=== PATIENT | female | born 1955 | race Hispanic/Latino ===

== ENCOUNTER 2017-11-11 12:36 | Inpatient (IN) | payer MEDICARE, BC ==
--- NOTE | 2017-11-11 13:24 | ED PDOC ---
Arrival/HPI - General Chief Complaint: Psychiatric Evaluation Time Seen by Provider: 11/11/17 13:03 Historian: Patient, Partner - History of Present Illness Narrative History of Present Illness (Text): 11/11/17 13:17 Pt is a 62 year old female with a 5 year history of anxiety and depression who presents to the ER with her spouse for a psychiatric evaluation and admission. Pt states that she does not want to live anymore but has no plan for suicide. Pt was taken to [facility] ED in [place] this morning in hope of getting her admitted but despite efforts by the patient's psychiatrist, Dr. Dumont, patient was discharged and sent to [facility] where Dr. Dumont spoke with PES for evaluation and admission. Pt denies chest pain, shortness of breath, n/v /d, headache, fever, or any other complaints. Time/Duration: 4-6 hours Symptom Onset: Gradual Symptom Course: Unchanged, Worsening Quality: Unable to Describe Past Medical History - Provider Review Nursing Documentation Reviewed: Yes - Travel History Have you recently traveled outside [place] w/in the past 3 mons?: No - Infectious Disease Hx of Infectious Diseases: None - Tetanus Immunization Tetanus Immunization: Unknown - Cardiac Hx Cardiac Disorders: Yes Hx Hypertension: Yes - Pulmonary Hx Respiratory Disorders: No - Neurological Hx Neurological Disorder: No - HEENT Hx HEENT Disorder: No - Renal Hx Renal Disorder: No - Endocrine/Metabolic Hx Endocrine Disorders: No - Hematological/Oncological Hx Blood Disorders: No - Integumentary Hx Dermatological Disorder: No - Musculoskeletal/Rheumatological Hx Musculoskeletal Disorders: Yes Hx Fractures: Yes - Gastrointestinal Hx Gastrointestinal Disorders: Yes Hx Gall Bladder Disease: Yes - Genitourinary/Gynecological Hx Genitourinary Disorders: No - Psychiatric Hx Psychophysiologic Disorder: Yes Hx Anxiety: Yes Hx Depression: Yes Hx Substance Use: No - Surgical History Hx Cholecystectomy: Yes Hx Orthopedic Surgery: Yes (L WRIST) Family/Social History - Physician Review Nursing Documentation Reviewed: Yes Family/Social History: Unknown Family HX Smoking Status: Former Smoker Hx Alcohol Use: No Hx Substance Use: No Allergies/Home Meds Allergies/Adverse Reactions: Allergies No Known Allergies Allergy (Verified 11/11/17 12:44) Home Medications: Home Meds Medication Instructions Recorded Confirmed Clonazepam [Klonopin] 1 mg PO .FIVE TIMES A DAY 11/11/17 11/11/17 Escitalopram [Lexapro] 20 mg PO DAILY 11/11/17 11/11/17 amLODIPine [Norvasc] 5 mg PO DAILY 11/11/17 11/11/17 Review of Systems - Review of Systems Constitutional: Normal Eyes: Normal ENT: Normal Respiratory: Normal Cardiovascular: Normal Gastrointestinal: Normal Genitourinary Female: Normal Musculoskeletal: Normal Skin: Normal Neurological: Normal Endocrine: Normal Hemo/Lymphatic: Normal Psychiatric: Anxiety, Depression, Suicidal Ideation Physical Exam Vital Signs Reviewed: Yes Vital Signs Temp Pulse Resp BP Pulse Ox 11/11/17 12:46 97.9 F 71 16 128/77 97 Temperature: Afebrile Blood Pressure: Normal Pulse: Regular Respiratory Rate: Normal Appearance: Positive for: Well-Appearing, Non-Toxic, Comfortable Pain Distress: None Mental Status: Positive for: Alert and Oriented X 3 - Systems Exam Head: Present: Atraumatic, Normocephalic Pupils: Present: PERRL Extroacular Muscles: Present: EOMI Conjunctiva: Present: Normal Mouth: Present: Moist Mucous Membranes Neck: Present: Normal Range of Motion Respiratory/Chest: Present: Clear to Auscultation, Good Air Exchange. No: Respiratory Distress, Accessory Muscle Use Cardiovascular: Present: Regular Rate and Rhythm, Normal S1, S2. No: Murmurs Abdomen: Present: Normal Bowel Sounds. No: Tenderness, Distention, Peritoneal Signs Back: Present: Normal Inspection Upper Extremity: Present: Normal Inspection. No: Cyanosis, Edema Lower Extremity: Present: Normal Inspection. No: Edema Neurological: Present: GCS=15, CN II-XII Intact Skin: Present: Warm, Dry, Rashes (psoriasis), Normal Color Psychiatric: Present: Alert, Oriented x 3, Normal Insight, Normal Concentration , Anxious, Depressed Mood (Pt nervous and indicates that she doesn't want to live anymore), Suicidal Ideation Medical Decision Making ED Course and Treatment: 11/11/17 13:24 Pt is a 62 year old female with a 5 year history of anxiety and depression who presents to the ER with her spouse for a psychiatric evaluation and admission. Plan labs and imaging to medically clear UDS and ETOH levels Contact PES and Dr. Dumont Assess Progress Note Spoke with PES; will admit pt as per Dr. Dumont but awaiting admitting dx by Dr Leon Pt admitted under Dr. Robledo for major depressive occurrence and generalized anxiety CXR and EKG ordered along with UDS and ETOH for medical clearance 11/11/17 14:18 - Lab Interpretations Lab Results: 11/11/17 15:15 11/11/17 15:15 Lab Results 11/11/17 15:15: Alcohol, Quantitative < 10 11/11/17 15:15: Sodium 143, Potassium 3.6, Chloride 102, Carbon Dioxide 34 H, Anion Gap 11, BUN 16, Creatinine 0.8, Est GFR ( Amer) > 60, Est GFR (Non- Af Amer) > 60, Random Glucose 97, Calcium 9.6, Total Bilirubin 0.4, AST 23, ALT 27, Alkaline Phosphatase 49, Total Protein 6.9, Albumin 3.8, Globulin 3.0, Albumin/Globulin Ratio 1.3 11/11/17 15:15: WBC 7.8, RBC 4.19, Hgb 13.4, Hct 41.0, MCV 97.9, MCH 32.0, MCHC 32.7, RDW 13.1, Plt Count 224, MPV 10.4 I have reviewed the lab results: Yes - RAD Interpretation Radiology Orders: 11/11/17 14:17 CXR [CHEST TWO VIEWS (PA/LAT)] [RAD] Stat - EKG Interpretation Interpreted by ED Physician: Yes - Medication Orders Current Medication Orders: Acetaminophen (Tylenol 325mg Tab) 650 mg PO Q6H PRN PRN Reason: Pain, moderate (4-7) Al Hydrox/Mg Hydrox/Simethicone (Maalox Plus 30 Ml) 30 ml PO DAILY PRN PRN Reason: Indigestion / Heartburn Clonazepam (Klonopin) 1 mg PO QID RONAK PRN Reason: Protocol Last Admin: 11/11/17 17:44 Dose: 1 mg Behavioural Document 11/11/17 17:44 [facility] (Rec: 11/11/17 17:44 [facility] [id number]) Maintenance Maintenance Dose Yes Magnesium Hydroxide (Milk Of Magnesia) 30 ml PO DAILY PRN PRN Reason: Constipation Paroxetine HCl (Paxil) 10 mg PO HS RONAK Zaleplon (Sonata) 5 mg PO HS PRN PRN Reason: Insomnia Disposition/Present on Arrival - Present on Arrival Any Indicators Present on Arrival: Yes History of DVT/PE: No History of Uncontrolled Diabetes: No Urinary Catheter: No History of Decub. Ulcer: No History Surgical Site Infection Following: None - Disposition Have Diagnosis and Disposition been Completed?: Yes Diagnosis: Major depression, Generalized anxiety disorder Disposition: HOSPITALIZED Disposition Time: 14:00 Patient Plan: Admission Patient Problems: Current Active Problems Problem Status Onset Major depression Acute Generalized anxiety disorder Acute Condition: GOOD
--- NOTE | 2017-11-11 14:53 | RAD ---
HISTORY: wheezing COMPARISON: No prior. TECHNIQUE: Chest PA and lateral FINDINGS: LUNGS: No active pulmonary disease. PLEURA: No significant pleural effusion identified. No pneumothorax apparent. CARDIOVASCULAR: Normal. OSSEOUS STRUCTURES: No significant abnormalities. VISUALIZED UPPER ABDOMEN: Normal. OTHER FINDINGS: None. IMPRESSION: No active disease.
[2017-11-11 15:53] LABS: HEMOGLOBIN 13.4 g/dL (12.0-16.0); MEAN CELL VOLUME 97.9 fl (80.0-105.0); MEAN CORPUSCULAR HGB CONC 32.7 g/dl (31.0-37.0); MEAN PLATELET VOLUME 10.4 fl (7.0-11.0); RBC 4.19 10^6/uL (3.5-6.1); RED CELL DISTRIBUTION WIDTH 13.1 % (11.5-14.5); WHITE BLOOD COUNT 7.8 10^3/ul (4.5-11.0)
[2017-11-11 16:03] LABS: ALB/GLOB RATIO 1.3 (1.1-1.8); ALBUMIN 3.8 g/dL (3.0-4.8); ALT/SGPT 27 U/L (7-56); AST/SGOT 23 U/L (14-36); BLOOD UREA NITROGEN 16 mg/dL (7-21); CALCIUM 9.6 mg/dL (8.4-10.5); GFR AFRICAN-AMERICAN > 60; GFR NON-AFRICAN AMERICAN > 60
[2017-11-11 16:13] LABS: URINE BILIRUBIN NEGATIVE (NEGATIVE); URINE BLOOD MODERATE (NEGATIVE); URINE GLUCOSE (UA) NEGATIVE (NEGATIVE); URINE LEUKOCYTE ESTERASE SMALL Leu/uL (NEGATIVE); URINE PROTEIN NEGATIVE mg/dL (<30 mg/dL); URINE UROBILINOGEN 0.2 E.U./dL (<1 E.U./dL)
[2017-11-11 16:15] LABS: URINE APPEARANCE SL CLOUDY (CLEAR); URINE COLOR YELLOW (YELLOW)
[2017-11-11 16:19] LABS: URINE BACTERIA FEW (NEG); URINE CALCIUM OXALATE CRYSTALS FEW /hpf
[2017-11-11 16:36] LABS: BENZODIAZEPINES, UR POSITIVE (NEGATIVE); OPIATES, UR NEGATIVE (NEGATIVE); PHENCYCLIDINE, UR NEGATIVE (NEGATIVE)
[2017-11-11 17:02] VITALS: O2SAT 99
[2017-11-11] MEDS ORDERED: Alum-Mag Hydrox-Simethicone Susp (30 mL) PO PRN (17:15)
[2017-11-11] MEDS ORDERED: Magnesium Hydroxide Susp 30 ml UD PO PRN (17:16)
[2017-11-11 17:49] LABS: BARBITURATES, UR NEGATIVE (NEGATIVE)
--- NOTE | 2017-11-11 18:03 | PCM.BM ---
<Ben Fan - Last Filed: 11/11/17 17:59> Treatment Plan Problems - Problems identified on initial assessmt Anxiety Date Initiated: 11/11/17 Time Initiated: 18:00 Assessment reference: HP, NA Status: Active Altered Sleep Pattern Date Initiated: 11/11/17 Time Initiated: 18:00 Assessment reference: HP, NA, Other Status: Active Fear Unspecified Date Initiated: 11/11/17 Time Initiated: 18:01 Assessment reference: HP, NA Status: Active Treatment assets and liabiliti Patient Assests: cooperative, self-reliant, good support system, negotiates basic needs, cognitively intact Patient Liabilities: live alone, relationship conflicts, medical problems - Milieu Protocol Maintain good personal hygiene: daily Encourage regular showers, daily Remind patient to perform daily oral care, daily Assist patient to perform ADL's Maintain personal safety: daily Educate patient to report safety concerns to staff, daily Monitor environment for contraband/sharps Medication safety: Monitor for expected outcome, potential side effects: daily, Assess barriers to learning: daily, Assess readiness for medication education: daily Discharge/Continuing Care - Education Needs Education Needs: Patient Medication, Patient Diagnosis/Disease Process, Patient Coping Skills, Patient Placement options, Patient Community resources, Patient Activities of Daily Living, Patient Uses of Medical Equipment, Patient Health Practices/Safety, Patient Personal Hygiene/Grooming, Patient Aftercare Safety Plan - Discharge Discharge Criteria: Free of agitation, Normal sleep pattern <Leon,Aric - Last Filed: 11/12/17 11:23> - Diagnosis (1) Generalized anxiety disorder Status: Acute Interventions: D/C Lexapro. Start Paxil 10 mg po HS for depression and anxiety, titrate as tolerated for symptoms. I reviewed indications, dosing, therapeutic latency and possible side effects with patient this morning and she consents for treatment klonopin 1 mg QID for anxiety, taper slowly as tolerated. This medication may be causing confusion and memory loss in this patient at the frequency prescribed as an outpatient 11/12/17 11:24 (2) Major depression Status: Acute Interventions: D/C Lexapro. Start Paxil 10 mg po HS for depression and anxiety, titrate as tolerated for symptoms. I reviewed indications, dosing, therapeutic latency and possible side effects with patient this morning and she consents for treatment klonopin 1 mg QID for anxiety, taper slowly as tolerated. This medication may be causing confusion and memory loss as well as worsening depression in this patient at the frequency prescribed as an outpatient 11/12/17 11:24 <Mary Mccollum - Last Filed: 11/14/17 15:48> Family Contact Family involvement: Family/SO is involved Family contact: Patient agrees to contact Family contact name: Robby Ceballos() Family contacted how many times per week?: 2 - Outside Agency Dr. Dias Care involvment: Following patient during stay, Information-sharing Agency contact name: Dr. Dias
[2017-11-12 08:16] LABS: HDL CHOLESTEROL 51 mg/dL (29-60)
[2017-11-12 08:27] LABS: LDL CHOLESTEROL 181 mg/dL (0-129)
--- NOTE | 2017-11-12 10:32 | PCM.PSYCH ---
Initial Psychiatric Evaluation - Initial Psychiatric Evaluation Type of Admission: Voluntary Legal Status: Capacity Chief Complaint (in patient's own words): anxiety History of Present Illness and Precipitating Events: Patient is a 62 year old female with a history of depression and anxiety (likely MANDY and Panic Disorder), no history of prior psychiatric admissions or SA, in psychiatric treatment with Dr. Dumont and reportedly compliant with lexapro 20 mg daily and klonopin 1 mg po five times daily prn who presented to our ER with her spouse yesterday 11/11/17 for a psychiatric evaluation and admission. According to ER report, patient was initially taken to [facility] ED in [place] yesterday morning for admission however patient was discharged despite her psychiatrist's recommendation for hospitalization. According to ER report, patient stated that she didn't want to live anymore though denied having any suicidal thoughts. I met with patient at bedside today. She is alert and oriented to month and location. She initially informed me that it was 2018. Patient indicates she doesn't know why she was admitted to a psychiatric unit. She admits to feelings of depression and hopelessness "sometimes in my life" though denies any current symptoms. Appears a little guarded. Indicates that she worries a lot and repeatedly brings up how nervous she is regarding her clothing on the unit. It is a little difficult to redirect her from this preoccupation in order to discuss her general functioning and symptoms. Patient admits to excessive and persistent worry about "things in my life" and finds it difficult to control her worry. Patient also admits to daily panic episodes. Her anxiety symptoms interfere with her sleep and functioning. Patient denies any recent stressors even with repeated questioning. Specifically denies financial, housing or family issues. Reports having a good relationship with her . Patient reports compliance with her psychiatric medications in so far as she takes the medications her tells her to take every day. Patient is preoccupied and distracted with her thoughts so her engagement with me is superficial. Sometimes she talks to herself for the sake of talking, she doesn't actually appear to be responding to internal stimuli. Patient heard mumbling repeatedly "I don't know what to do with myself all day long, what am I going to do with myself". Patient denies perceptual disturbance when directly questioned by this provider. She seems uneasy because she's in a new environment but denies any physical discomfort or pain. PSYCHIATRIC HISTORY Denies prior admissions Denies history of SA Patient reports being in treatment with Dr. Dumont "for many many years". Her medication regimen includes Lexapro 20 mg po daily and klonopin 1 mg po five times daily. She denies any other medication trials. Patient adds that Dr. Dumont also prescribes her Norvasc. She denies any other medication trials. SOCIAL HISTORY Patient was born and raised in [place]. She has been 30+ years and resides with her . She has no children. She graduated high school. 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 Patient reports that she smoked MJA as a teenager but denies any drug use for many years since then. Denies alcohol issues. Patient denies any current tobacco use "I quit a long time ago". Current Medications: Active Medications Generic Name Dose Route Start Last Admin Trade Name Freq PRN Reason Stop Dose Admin Acetaminophen 650 mg 11/11/17 17:14 Tylenol 325mg Tab PO Q6H PRN Pain, moderate (4-7) Al Hydrox/Mg Hydrox/Simethicone 30 ml 11/11/17 17:15 Maalox Plus 30 Ml PO DAILY PRN Indigestion / Heartburn Clonazepam 1 mg 11/11/17 18:00 11/11/17 21:03 Klonopin PO 1 mg QID RONAK Administration Protocol Magnesium Hydroxide 30 ml 11/11/17 17:16 Milk Of Magnesia PO DAILY PRN Constipation Paroxetine HCl 10 mg 11/11/17 22:00 11/11/17 21:03 Paxil PO 10 mg HS RONAK Administration Zaleplon 5 mg 11/11/17 17:13 11/11/17 21:04 Sonata PO 5 mg HS PRN Administration Insomnia Past Psychiatric History - Past Psychiatric History Pertinent Medical Hx (Current Medical&Sleep Prob, Allergies): Allergies Allergy/AdvReac Type Severity Reaction Status Date / Time No Known Allergies Allergy Verified 11/11/17 12:44 Clonazepam [Klonopin] 1 mg PO .FIVE TIMES A DAY 11/11/17 Escitalopram [Lexapro] 20 mg PO DAILY 11/11/17 amLODIPine [Norvasc] 5 mg PO DAILY 11/11/17 Mental Status Examination - Personal Presentation Personal Presentation: Looks stated age - Affect Affect: Other (anxioiuus ) - Reliability in Providing Information Reliability in Providing Information: Fair - Speech Speech: Tangential - Mood Mood: Anxious - Formal Thought Process Formal Thought Process: Loosening of associations - Cognitive Functions Orientation: Person, Place Sensorium: Alert Attention/Concentration: Easily distracted Estimate of Intelligence: Average Judgement: Imparied, as evidence by: Lack of insight into illness DSM 5 DX - DSM 5 DSM 5 Diagnosis: Major Depression by history Generalized Anxiety Disorder Panic Disorder r/o hypnotic dependency/effects of intoxication - Recommended/Plan of Treatment Treatment Recommendations and Plan of Treatment: * group, milieu and supportive tx * D/C Lexapro. Start Paxil 10 mg po HS for depression and anxiety, titrate as tolerated for symptoms. I reviewed indications, dosing, therapeutic latency and possible side effects with patient this morning and she consents for treatment * klonopin 1 mg QID for anxiety, taper slowly as tolerated. This medication may be causing confusion and memory loss in this patient at the frequency prescribed as an outpatient * Awaiting medical consultation, patient has history of HTN * Vitals reviewed and noted below: 11/12/17 11/12/17 06:51 09:24 Temperature 97.6 F Pulse Rate 76 Respiratory 18 Rate Blood Pressure 144/78 107/71 ER LABS AND STUDIES 11/11/17 15:15: Alcohol, Quantitative < 10 11/11/17 15:15: Sodium 143, Potassium 3.6, Chloride 102, Carbon Dioxide 34 H, Anion Gap 11, BUN 16, Creatinine 0.8, Est GFR ( Amer) > 60, Est GFR (Non- Af Amer) > 60, Random Glucose 97, Calcium 9.6, Total Bilirubin 0.4, AST 23, ALT 27, Alkaline Phosphatase 49, Total Protein 6.9, Albumin 3.8, Globulin 3.0, Albumin/Globulin Ratio 1.3 11/11/17 15:15: WBC 7.8, RBC 4.19, Hgb 13.4, Hct 41.0, MCV 97.9, MCH 32.0, MCHC 32.7, RDW 13.1, Plt Count 224, MPV 10.4 FLOOR LABS 11/12/17 07:30 Triglycerides 227 H Cholesterol 305 H LDL Cholesterol Direct 181 H HDL Cholesterol 51 - Smoking Cessation Smoking Cessation Initiated: No
--- NOTE | 2017-11-12 13:56 | PN ---
DATE: SUBJECTIVE: I am covering for Dr. Khan. I am seeing this patient, Zoraida Ceballos. The patient is in the Behavioral Care Unit at [facility] in [place], room 519, bed 2. The patient was admitted by Dr. Robledo, Behavioral Care physician. The patient has long history of dementia apparently and also schizophrenia. The patient has history of altered mental state and passive behavior interrupted by aggressive behavior. PAST MEDICAL HISTORY: The patient has history of hypertension, she says and the patient has history of taking medications for dementia. The patient is also on Paxil. The patient is on Klonopin. The patient's past history is that the patient was on Klonopin, amlodipine 5 mg and Lexapro. PAST SURGICAL HISTORY: The patient has no surgical history. FAMILY HISTORY: Significant for the patient's father is still alive, the mother has . The patient has sisters and they also are in their 50s. 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 According to the patient, she cannot give a history, but the sister, she is Syrian speaking, and she had given information to the psychiatrist that the patient does not work and keeps very much to herself. PHYSICAL EXAMINATION: VITAL SIGNS: The pulse is 76, blood pressure 144/78, respirations are 18, O2 saturation 99% on room air, temperature 97.6. GENERAL: The patient is ambulating. The patient appears to be healthy. HEENT: The patient's head is normocephalic. NECK: Thyroid is not enlarged. The JVP is flat. LUNGS: Trachea is central. Breath sounds are vesicular. No adventitious sounds. HEART: Normal sinus rhythm. S1 and S2 present. ABDOMEN: Soft. Liver and spleen not palpable. PORTRAIT ARTIST: No focal deficits. The patient is in the Behavioral Care Unit. At this time, she has been closely monitored, but she does not apparently have any history of suicidal tendency or aggressive behavior to the extent of hurting people. LABORATORY DATA: Lab work shows a white count of 7000, hemoglobin of 13.4. The patient's chemistry: The patient's CO2 is 34, all other chemical parameters seem to be good. Cholesterol is 305. Th patient might be placed on statin at this time. We will continue medical management. We will place the patient on Norvasc 2.5 mg daily and Lipitor 20 mg p.o. daily and continue all other medications as prescribed by the Behavioral Care physician. Roger Fox MD SRIRAM
--- NOTE | 2017-11-13 11:55 | PCM.PYCHPN ---
Psychiatric Progress Note - Psychiatric Progress Note Patient seen today, length of contact: 25 min Patient Chief Complaint: anxiety Problems Identified/Issues Discussed: History of Present Illness and Precipitating Events: Patient is a 62 year old female with a history of depression and anxiety (likely MANDY and Panic Disorder), no history of prior psychiatric admissions or SA, in psychiatric treatment with Dr. Dumont and reportedly compliant with lexapro 20 mg daily and klonopin 1 mg po five times daily prn who presented to our ER with her spouse yesterday 11/11/17 for a psychiatric evaluation and admission. According to ER report, patient was initially taken to [facility] ED in [place] yesterday morning for admission however patient was discharged despite her psychiatrist's recommendation for hospitalization. According to ER report, patient stated that she didn't want to live anymore though denied having any suicidal thoughts. I met with patient at bedside today. She is alert and oriented to month and location. She initially informed me that it was 2018. Patient indicates she doesn't know why she was admitted to a psychiatric unit. She admits to feelings of depression and hopelessness "sometimes in my life" though denies any current symptoms. Appears a little guarded. Indicates that she worries a lot and repeatedly brings up how nervous she is regarding her clothing on the unit. It is a little difficult to redirect her from this preoccupation in order to discuss her general functioning and symptoms. Patient admits to excessive and persistent worry about "things in my life" and finds it difficult to control her worry. Patient also admits to daily panic episodes. Her anxiety symptoms interfere with her sleep and functioning. Patient denies any recent stressors even with repeated questioning. Specifically denies financial, housing or family issues. Reports having a good relationship with her . Patient reports compliance with her psychiatric medications in so far as she takes the medications her tells her to take every day. Patient is preoccupied and distracted with her thoughts so her engagement with me is superficial. Sometimes she talks to herself for the sake of talking, she doesn't actually appear to be responding to internal stimuli. Patient heard mumbling repeatedly "I don't know what to do with myself all day long, what am I going to do with myself". Patient denies perceptual disturbance when directly questioned by this provider. She seems uneasy because she's in a new environment but denies any physical discomfort or pain. PSYCHIATRIC HISTORY Denies prior admissions Denies history of SA Patient reports being in treatment with Dr. Dumont "for many many years". Her medication regimen includes Lexapro 20 mg po daily and klonopin 1 mg po five times daily. She denies any other medication trials. Patient adds that Dr. Dumont also prescribes her Norvasc. She denies any other medication trials. SOCIAL HISTORY Patient was born and raised in [place]. She has been 30+ years and resides with her . She has no children. She graduated high school. 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 Patient reports that she smoked MJA as a teenager but denies any drug use for many years since then. Denies alcohol issues. Patient denies any current tobacco use "I quit a long time ago". Progress Note Day 3 I reviewed recent notes and interviewed patient in her room. Patient is only superficially engaged in my questioning and discussion of her symptoms because she is too scattered and distracted by her worries. As noted in yesterday's note, sometimes she talks to herself for the sake of talking, she doesn't actually appear to be responding to internal stimuli. Patient repeatedly makes meaningless statements and worries even when reassured by this provider and staff. For example she was repeatedly fixated on whether she had enough time to take a shower before breakfast today. Today she also kept telling me that her wants her "to wear the sweat shirt". She is restless, odd and disorganized. Though she is oriented to month, year and location she is poorly related to circumstances. I observed patient disrobing and wandering her room and flood naked, brooding and talking to herself. Presently patient denies any new side effects, discomfort and pain. Diagnostic Results: Major Depression by history Generalized Anxiety Disorder Panic Disorder r/o hypnotic dependency/effects of intoxication Mental Status Examination - Cognitive Function Orientation: Person, Place - Mood Mood: Anxious - Affect Affect: Other (anxioiuus ) - Formal Thought Process Formal Thought Process: Loosening of associations - Homicidal Ideation Homicidal Ideation: No Goal/Treatment Plan - Goal/Treatment Plan Progress Toward Problem(s) and Goals/Treatment Plan: * group, milieu and supportive tx * Continue Paxil 10 mg po HS for depression and anxiety, titrate as tolerated for symptoms. I reviewed indications, dosing, therapeutic latency and possible side effects with patient this morning and she consents for treatment * decrease klonopin to 1 mg TID, taper slowly as medication may be causing confusion and memory loss in this patient at the frequency prescribed as an outpatient (5 times daily) * d/c Sonata and initiate Seroquel 12.5 mg HS for disorganization and off-label for poor sleep * Appreciate f/u by Dr. Fox on 11/12/17~started Norvasc 2.5 mg and Lipitor 20 mg daily. * Vitals reviewed and noted below: 11/13/17 07:00 Temperature 97.3 F L Pulse Rate 84 Respiratory 20 Rate Blood Pressure 131/77 ER LABS AND STUDIES 11/11/17 15:15: Alcohol, Quantitative < 10 11/11/17 15:15: Sodium 143, Potassium 3.6, Chloride 102, Carbon Dioxide 34 H, Anion Gap 11, BUN 16, Creatinine 0.8, Est GFR ( Amer) > 60, Est GFR (Non- Af Amer) > 60, Random Glucose 97, Calcium 9.6, Total Bilirubin 0.4, AST 23, ALT 27, Alkaline Phosphatase 49, Total Protein 6.9, Albumin 3.8, Globulin 3.0, Albumin/Globulin Ratio 1.3 11/11/17 15:15: WBC 7.8, RBC 4.19, Hgb 13.4, Hct 41.0, MCV 97.9, MCH 32.0, MCHC 32.7, RDW 13.1, Plt Count 224, MPV 10.4 FLOOR LABS 11/12/17 07:30 Triglycerides 227 H Cholesterol 305 H LDL Cholesterol Direct 181 H HDL Cholesterol 51
--- NOTE | 2017-11-13 11:57 | PN ---
DATE: SUBJECTIVE: The patient is in the Behavioral Care Unit in room 519, bed 2. The patient was admitted with catatonic state, abnormal behavior. The patient would not make conversation. She has past history of schizophrenia, bipolar disorder. The patient is seen this morning. The patient is ambulating and apparently conversing with the nurses. PHYSICAL EXAMINATION VITAL SIGNS: The pulse is 84, blood pressure 135/75, respirations are 20. HEENT: The patient's head is normocephalic. LUNGS: Clear. HEART: Normal sinus rhythm. ABDOMEN: Soft. Liver and spleen not palpable. CLIP BOLTER AND WRAPPER: No focal neurological deficits are noted. The patient has definite behavioral disorder. MEDICATIONS: Consist of Lipitor 10 mg daily for hyperlipidemia, amlodipine 2.5 mg daily for blood pressure control and the patient gets Sonata for sleep, Paxil 10 mg for bipolar disorder and the patient is on Klonopin 1 mg q.i.d. The patient's diet is heart healthy. Continue current management. Follow up with Behavioral Care Unit. Roger Fox MD SRIRAM
[2017-11-13] MEDS: Omega-3-Acid Ethyl Esters 1 GM Cap PO SCH (21:41)
[2017-11-13 23:02] LABS: URINE BILIRUBIN NEGATIVE (NEGATIVE); URINE BLOOD SMALL (NEGATIVE); URINE GLUCOSE (UA) NEGATIVE (NEGATIVE); URINE LEUKOCYTE ESTERASE TRACE Leu/uL (NEGATIVE); URINE PROTEIN NEGATIVE mg/dL (<30 mg/dL); URINE UROBILINOGEN 0.2 E.U./dL (<1 E.U./dL)
[2017-11-13 23:05] LABS: URINE APPEARANCE CLEAR (CLEAR); URINE COLOR LIGHT YELLOW (YELLOW)
[2017-11-13 23:17] LABS: URINE BACTERIA MOD (NEG); URINE EPITHELIAL CELLS 0 - 2 /hpf (0-5)
[2017-11-14 08:45] LABS: FREE T4 1.02 ng/dL (0.78-2.19)
[2017-11-14] MEDS: Omega-3-Acid Ethyl Esters 1 GM Cap PO SCH ×2 (09:06→17:26)
--- NOTE | 2017-11-14 12:08 | PCM.PYCHPN ---
Psychiatric Progress Note - Psychiatric Progress Note Patient seen today, length of contact: 25 min Patient Chief Complaint: anxiety Problems Identified/Issues Discussed: History of Present Illness and Precipitating Events: Patient is a 62 year old female with a history of depression and anxiety (likely MANDY and Panic Disorder), no history of prior psychiatric admissions or SA, in psychiatric treatment with Dr. Dumont and reportedly compliant with lexapro 20 mg daily and klonopin 1 mg po five times daily prn who presented to our ER with her spouse yesterday 11/11/17 for a psychiatric evaluation and admission. According to ER report, patient was initially taken to [facility] ED in [place] yesterday morning for admission however patient was discharged despite her psychiatrist's recommendation for hospitalization. According to ER report, patient stated that she didn't want to live anymore though denied having any suicidal thoughts. I met with patient at bedside today. She is alert and oriented to month and location. She initially informed me that it was 2018. Patient indicates she doesn't know why she was admitted to a psychiatric unit. She admits to feelings of depression and hopelessness "sometimes in my life" though denies any current symptoms. Appears a little guarded. Indicates that she worries a lot and repeatedly brings up how nervous she is regarding her clothing on the unit. It is a little difficult to redirect her from this preoccupation in order to discuss her general functioning and symptoms. Patient admits to excessive and persistent worry about "things in my life" and finds it difficult to control her worry. Patient also admits to daily panic episodes. Her anxiety symptoms interfere with her sleep and functioning. Patient denies any recent stressors even with repeated questioning. Specifically denies financial, housing or family issues. Reports having a good relationship with her . Patient reports compliance with her psychiatric medications in so far as she takes the medications her tells her to take every day. Patient is preoccupied and distracted with her thoughts so her engagement with me is superficial. Sometimes she talks to herself for the sake of talking, she doesn't actually appear to be responding to internal stimuli. Patient heard mumbling repeatedly "I don't know what to do with myself all day long, what am I going to do with myself". Patient denies perceptual disturbance when directly questioned by this provider. She seems uneasy because she's in a new environment but denies any physical discomfort or pain. PSYCHIATRIC HISTORY Denies prior admissions Denies history of SA Patient reports being in treatment with Dr. Dumont "for many many years". Her medication regimen includes Lexapro 20 mg po daily and klonopin 1 mg po five times daily. She denies any other medication trials. Patient adds that Dr. Dumont also prescribes her Norvasc. She denies any other medication trials. SOCIAL HISTORY Patient was born and raised in [place]. She has been 30+ years and resides with her . She has no children. She graduated high school. 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 Patient reports that she smoked MJA as a teenager but denies any drug use for many years since then. Denies alcohol issues. Patient denies any current tobacco use "I quit a long time ago". Progress Note Day 4 I reviewed recent notes and interviewed patient in her room. Patient's focus is a little improved today though her engagement and understanding of circumstances is still superficial. This is mainly because her ruminating anxiety distracts and scatters her thought process. As noted in my prior notes , sometimes she talks to herself for the sake of talking. She is doing this a little less this morning. Can maintain focus for a longer period of time before she starts rambling and brooding about minor issues. She is still preoccupied with her clothing. Her concerns are addressed by staff but she continues to worry and repeat herself. She is still restless, odd and disorganized. She doesn't actually appear to be responding to internal stimuli and she denies perceptual disturbance in this sense. Her grooming is better today and she seems to be more aware of keeping her behavior appropriate (she was disrobing and walking around naked yesterday morning). Presently patient denies any new side effects, discomfort and pain. Patient indicates she slept better and there were not major behavioral issues last night. Diagnostic Results: Major Depression by history Generalized Anxiety Disorder Panic Disorder r/o hypnotic dependency/effects of intoxication Mental Status Examination - Cognitive Function Orientation: Person, Place Attention: Poor (some improvement today, less frenetic than her behavior on Tuesday) Concentration: Poor Association: Loose Fund of Knowledge: Poor - Mood Mood: Anxious - Affect Affect: Other (anxioiuus ) - Formal Thought Process Formal Thought Process: Loosening of associations - Suicidal Ideation Suicidal Ideation: No - Homicidal Ideation Homicidal Ideation: No Goal/Treatment Plan - Goal/Treatment Plan Progress Toward Problem(s) and Goals/Treatment Plan: * group, milieu and supportive tx * Increase Paxil to 15 mg po HS for depression and anxiety, titrate as tolerated for symptoms. I reviewed indications, dosing, therapeutic latency and possible side effects with patient on 11/12/17 and she consented for treatment * Continue klonopin to 1 mg TID, taper slowly as medication may be causing confusion and memory loss in this patient at the frequency prescribed as an outpatient (5 times daily) * Increase Seroquel to 25 mg HS for disorganization and off-label for poor sleep * Appreciate f/u by Dr. Fox on 11/12/17 and 11/13/17~started Norvasc 2.5 mg and Lipitor 20 mg daily. * Vitals reviewed and noted below: 11/14/17 07:47 Temperature 98.1 F Pulse Rate 87 Respiratory 20 Rate Blood Pressure 119/83 ER LABS AND STUDIES 11/11/17 15:15: Alcohol, Quantitative < 10 11/11/17 15:15: Sodium 143, Potassium 3.6, Chloride 102, Carbon Dioxide 34 H, Anion Gap 11, BUN 16, Creatinine 0.8, Est GFR ( Amer) > 60, Est GFR (Non- Af Amer) > 60, Random Glucose 97, Calcium 9.6, Total Bilirubin 0.4, AST 23, ALT 27, Alkaline Phosphatase 49, Total Protein 6.9, Albumin 3.8, Globulin 3.0, Albumin/Globulin Ratio 1.3 11/11/17 15:15: WBC 7.8, RBC 4.19, Hgb 13.4, Hct 41.0, MCV 97.9, MCH 32.0, MCHC 32.7, RDW 13.1, Plt Count 224, MPV 10.4 FLOOR LABS 11/14/17 07:45 Free T4 1.02 Thyroxine (T4) 8.0 TSH 3rd Generation 0.77 11/12/17 07:30 Triglycerides 227 H Cholesterol 305 H LDL Cholesterol Direct 181 H HDL Cholesterol 51
--- NOTE | 2017-11-14 16:40 | CON ---
DATE: 11/14/2017 NEUROLOGY CONSULT CHIEF COMPLAINT: Evaluate for cognitive impairment. HISTORY OF PRESENT ILLNESS: This is a 62-year-old woman, history of anxiety, depression, hypertension, dyslipidemia, who came in for worsening depression and is currently being admitted to the Psychiatric Unit. She is very anxious. She is on high doses of Klonopin and is on Lexapro and Paxil. She has poor sleep and very disorganized, though she could spell the word world backwards and knows the month, date and year. Recall after 5 minutes is 2/3. She does have a blocking effect from being already anxious, though moves around and walks around without any difficulty, but a very anxious person. She I do not know what to do myself all day and all day long and is overwhelmed. PAST MEDICAL HISTORY: Dyslipidemia, hypertension, anxiety, depression. REVIEW OF SYSTEMS: Fourteen-point review of systems in negative except as per the HPI. FAMILY HISTORY: Noncontributory. SOCIAL HISTORY: No illicit drug use, smoking or EtOH abuse. MEDICATIONS: Reviewed by nurse reconciliation sheet. ALLERGIES: NO KNOWN DRUG ALLERGIES. PHYSICAL EXAMINATION: VITAL SIGNS: Temperature 98.1, pulse rate of 87, blood pressure 119/82, respiratory rate 20. GENERAL: The patient is sitting up in bed, very anxious. HEENT: She is atraumatic, normocephalic. PERRLA. Extraocular muscles intact. NECK: Supple. No JVD, no adenopathy noted. LUNGS: Clear to auscultation. No adventitious sounds. HEART: S1, S2. Normal rate and rhythm. No murmurs, rubs or gallops. ABDOMEN: Soft, nontender and nondistended. Bowel sounds are present. EXTREMITIES: No clubbing. No cyanosis. Peripheral pulses 2+ felt bilaterally. NEUROLOGIC: The patient has very anxious affect, loose associations. Poor attention span. Slow thought process. Alert and oriented to person, place and year. Recall after 5 minutes is 2/3. She can spell the word world backwards. Motor exam: Slight increased tone throughout. Moves all extremities equally. Sensory: Light touch, pinprick, proprioception and vibration are intact. DTRs are 2+ throughout. Coordination: [id number] intact. No dysmetria noted. Gait is normal. Romberg negative. LABORATORY DATA: Labs unremarkable and she has a thyroid function. ASSESSMENT: This is a 62-year-old woman, history of hypertension, dyslipidemia, anxiety, depression, came in for worsening depression and anxiety. I was called to assess the cognitive impairment. At this time point, it is very difficult to assess her cognitive impairment due to severe anxiety, likely causing the blocking effect of her transient aspect of her memory. PLAN: At this time, recommend, 1. Attention exercises and constitutional exercises. 2. Avoid overuse of Klonopin. Recommended to taper down slowly. 3. Continue with her underlying Paxil. 4. Continue further Psychiatric management. No further neurological evaluation needed at this time. We will evaluate as an outpatient. Fazal Julian MD
[2017-11-14] MEDS: Ergocalciferol 50,000 Intl Units Cap PO SCH (22:45)
--- NOTE | 2017-11-15 04:08 | PN ---
DATE: 11/14/2017 SUBJECTIVE: The patient is seen in room 519, and also ambulating on the floor. Overnight nurse's notes were reviewed. The patient states that she has been feeling very anxious and depressed, and has not been feeling herself. The patient was admitted through the emergency room on 11/11/2017, with presentation of anxiety and depression. The patient still states that she is feeling anxious and depressed. The patient denies any suicidal or homicidal ideation. PHYSICAL EXAMINATION: VITAL SIGNS: T-max 98.1; pulse 74, 87, 68; blood pressure, last 24 hours, 131/77, 126/80, 119/83, 119/83, 128/61; respiration 20, O2 sat 99% to 97%. HEENT: Head normocephalic, atraumatic. HEENT examination shows pink conjunctivae. Anicteric sclerae. No oropharyngeal lesion. No neck rigidity. CHEST: Kyphosis. LUNG: No rales, crackles or wheezing. CARDIOVASCULAR: S1 and S2, regular rhythm. No audible murmur, gallop or rub. ABDOMEN: Soft. Positive bowel sounds. GENITALIA: Female. RECTAL: Deferred. EXTREMITIES: Healed surgical scar of the left wrist surgery and left hand surgery. Lower extremity shows no pitting edema, no calf tenderness, no Homans' sign. NEUROLOGICAL: The patient is alert, awake, oriented x3. Is able to move upper and lower extremity without assistance. Gait examination is independent. Motor strength is 5/5. VASCULAR: Palpable pulses. DIAGNOSTICS: The patient's lipid panel shows triglyceride of 227, cholesterol 305, LDL 181. Vitamin D 25-hydroxy 21.1. Thyroid panel is negative. Repeat urine shows small blood, trace leukocyte esterase, moderate bacteria. Urine drug screen was negative. RPR is negative. Chest x-ray from 11/11/2017 was reviewed, which was negative for any active disease. IMPRESSION: 1. Acute exacerbation of anxiety and depression. 2. History of hypertension and hyperlipidemia. 3. History of left wrist and hand surgery. 4. History of left hand and wrist fracture. 5. History of anxiety and depression with acute exacerbation. 6. History of generalized anxiety disorder and panic disorder. 7. History of hypertension, presently normotension. 8. Hypovitaminosis D. 9. Hypercholesteremia, hypertriglyceridemia, with elevated LDL. 10. Microscopic hematuria, pyuria, bacteriuria. PLAN: At this time, the patient was seen by Neurology. Their recommendations were noted. The patient is being followed up by Psychiatry for optimization of the patient's inpatient psychiatry treatment. The patient is currently on following medications. The patient is on: 1. Drisdol 50,000 units weekly. 2. Klonopin 1 mg 3 times a day. 3. Lipitor 80 mg daily. 4. Lovaza 2 g twice a day. 5. Milk of magnesia p.r.n. 6. Norvasc 2.5 mg daily. 7. Paxil 15 mg at bedtime. 8. Seroquel 25 mg at bedtime 9. Tylenol 650 q. 6 p.r.n. The patient will be placed on low-cholesterol, low-fat, low-triglyceride diet because of abnormal lipid panel. The patient will be placed on heart healthy diet. The patient will be ordered dietitian consultation. 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 Patient at present needs high intensity cholesterol management. The patient will be continued on the above therapeutic intervention. The patient's further management will be dependent upon the patient's clinical condition, hemodynamic status, and as per the patient's response to therapeutic intervention, as per the patient's diagnostic test results, and recommendation by all the physician involved in the care of the patient. Dictated and electronically signed, not read. Massimo Khan MD
[2017-11-15] MEDS: Omega-3-Acid Ethyl Esters 1 GM Cap PO SCH ×2 (09:00→17:44)
--- NOTE | 2017-11-15 13:58 | PCM.PYCHPN ---
Psychiatric Progress Note - Psychiatric Progress Note Patient seen today, length of contact: 30min Patient Chief Complaint: "I am not doing so well, I feel paranoid, I am depressed and I have anxiety.... " Problems Identified/Issues Discussed: Suicide/ homicide prevention, past psychiatric h/o, current psychiatric symptoms , medical problems, risk/benefits and alternatives of medications, medications compliance, coping strategies, substance abuse h/o, relapse prevention, importance of follow up with psychiatrist and therapist, discharge plan. Medical Problems: low vit D hypercholesterolemia HTN Diagnostic Results: 11/11/17 15:15 11/11/17 15:15 Lab Results 11/14/17 07:45: Free T4 1.02, Thyroxine (T4) 8.0, TSH 3rd Generation 0.77 11/14/17 07:45: 25-OH Vitamin D Total 21.1 L 11/13/17 22:00: Urine Color Light yellow, Urine Appearance Clear, Urine pH 6.0, Ur Specific [place] 1.015, Urine Protein Negative, Urine Glucose (UA) Negative, Urine Ketones Negative, Urine Blood Small H, Urine Nitrate Negative, Urine Bilirubin Negative, Urine Urobilinogen 0.2, Ur Leukocyte Esterase Trace H, Urine RBC 2 - 5, Urine WBC 2 - 5, Ur Epithelial Cells 0 - 2, Urine Bacteria Mod , Urine Other Mucus 11/12/17 07:30: RPR Nonreactive 11/12/17 07:30: Triglycerides 227 H, Cholesterol 305 H, LDL Cholesterol Direct 181 H, HDL Cholesterol 51 11/11/17 16:00: Urine Opiates Screen Negative, Urine Methadone Screen Negative, Ur Barbiturates Screen Negative, Ur Phencyclidine Scrn Negative, Ur Amphetamines Screen Negative, U Benzodiazepines Scrn Positive, U Oth Cocaine Metabols Negative, U Cannabinoids Screen Negative 11/11/17 16:00: Urine Color Yellow, Urine Appearance Sl cloudy, Urine pH 6.0, Ur Specific [place] >= 1.030, Urine Protein Negative, Urine Glucose (UA) Negative, Urine Ketones Trace H, Urine Blood Moderate H, Urine Nitrate Negative , Urine Bilirubin Negative, Urine Urobilinogen 0.2, Ur Leukocyte Esterase Small H, Urine RBC 1 - 3, Urine WBC 5 - 10, Ur Epithelial Cells 10 - 12, Calcium Oxalate Crystal Few, Urine Bacteria Few 11/11/17 15:15: Alcohol, Quantitative < 10 11/11/17 15:15: Sodium 143, Potassium 3.6, Chloride 102, Carbon Dioxide 34 H, Anion Gap 11, BUN 16, Creatinine 0.8, Est GFR ( Amer) > 60, Est GFR (Non- Af Amer) > 60, Random Glucose 97, Calcium 9.6, Total Bilirubin 0.4, AST 23, ALT 27, Alkaline Phosphatase 49, Total Protein 6.9, Albumin 3.8, Globulin 3.0, Albumin/Globulin Ratio 1.3 11/11/17 15:15: WBC 7.8, RBC 4.19, Hgb 13.4, Hct 41.0, MCV 97.9, MCH 32.0, MCHC 32.7, RDW 13.1, Plt Count 224, MPV 10.4 Vital Signs Temp Pulse Resp BP Pulse Ox 11/15/17 09:01 106/60 11/14/17 16:00 68 128/61 11/14/17 09:06 119/83 11/14/17 07:47 98.1 F 87 20 119/83 11/13/17 16:39 74 126/80 11/13/17 07:50 131/77 11/13/17 07:00 97.3 F L 84 20 131/77 11/12/17 16:56 67 118/59 L 11/12/17 09:24 107/71 11/12/17 06:51 97.6 F 76 18 144/78 11/11/17 17:00 72 16 122/82 99 11/11/17 12:46 97.9 F 71 16 128/77 97 DSM 5 Symptoms Update: As per 's assessment: Patient is a 62 year old female with a history of depression and anxiety (likely MANDY and Panic Disorder), no history of prior psychiatric admissions or SA, in psychiatric treatment with Dr. Dumont and reportedly compliant with lexapro 20 mg daily and klonopin 1 mg po five times daily prn who presented to our ER with her spouse on 11/11/17 for a psychiatric evaluation and admission. According to ER report, patient was initially taken to [facility] ED in [place] a day prior to this admission, however patient was discharged despite her psychiatrist's recommendation for hospitalization. According to ER report, patient stated that she didn't want to live anymore though denied having any suicidal thoughts. pt was seen and examined, discussed with staff, 's notes reviewed and appreciated. pt presented with some psychomotor retardation, pt also had difficulties to stay focused and concentrate. pt said that she feels depressed, reported that her anxiety was getting worse to the point when pt was not able to leave the house and was not able to function. pt also said that she was feeling worried about multiple aspect of her life. as per staff pt has difficulties to complete the task, difficulties to concentrate, stay focused. pt tolerates meds well, no side effects observed or reported, AIMS 0, no EPS. DSM 5 Diagnosis: Major Depression by history Generalized Anxiety Disorder Panic Disorder r/o hypnotic dependency/effects of intoxication Medication Change: Yes (seroquel increased, paxil increased) Medical Record Reviewed: Yes Consults ordered or reviewed: medical consult appreciated Mental Status Examination - Cognitive Function Orientation: Person, Place Attention: Poor (some improvement today, less frenetic than her behavior on Tuesday) Concentration: Poor Association: Loose Fund of Knowledge: Poor - Mood Mood: Anxious - Affect Affect: Other (anxioiuus ) - Formal Thought Process Formal Thought Process: Loosening of associations - Suicidal Ideation Suicidal Ideation: No - Homicidal Ideation Homicidal Ideation: No Goal/Treatment Plan - Goal/Treatment Plan Need for Continued Stay: Remain at risks for inpatient hospitalization, Severe depression anxiety, Discharge may exacerbated symptoms, Severe functional impairment Progress Toward Problem(s) and Goals/Treatment Plan: Milieu/structure/supportive therapy Medical consult appreciated, see medical team note for more detailed info SW consultation for discharge plan and social issues Med management seroquel will be increased to 50mg po hs for mood stabilization and possible psychosis paxil will be increased to 20mg po hs for depression and anxiety klonopin 1mg po tid for anxiety will be continued Family involvement Follow up on labs Will monitor closely Pt was educated about risk/benefits and alternatives of medications, coping strategies (safety plan, suicide prevention), relapse prevention, importance of follow up with psychiatrist and therapist, stay away from drugs/alcohol/smoking Estimated Date of D/C: 11/21/17
--- NOTE | 2017-11-16 01:02 | PN ---
DATE: 11/15/2017 SUBJECTIVE: The patient was seen in room 519, bed 2. The patient was seen ambulating on the floor. The patient was found to be alert, awake, responsive with very flat affect. The patient appears to be depressed. PHYSICAL EXAMINATION: VITAL SIGNS: T-max 98.1, 97.3; pulse 68, 75; blood pressure 132/62, 128/61, 119/83; respirations 20; O2 sat 99%. HEENT: Head examination normocephalic, atraumatic. HEENT examination shows pinkish conjunctivae. Anicteric sclerae. No oropharyngeal lesion. No neck rigidity. CHEST: Kyphosis. LUNGS: Shows no rales, crackles or wheezing. CARDIOVASCULAR: S1, S2. Regular rhythm. No audible murmur, gallop or rub. ABDOMEN: Soft. Positive bowel sound. No hepatosplenomegaly noted. GENITALIA: Female. RECTAL: Deferred. EXTREMITY: Shows no pitting edema, no calf tenderness, no Homans' sign. NEUROLOGIC: The patient is alert, awake, responsive. She is able to move upper and lower extremity without assistance. Gait examination is independent. VASCULAR: Palpable pulses. Plantars are downward. DTRs 2+. DIAGNOSTICS: Urine cultures shows less than 10,000 multiple species, possible contamination. RPR is negative. Urine drug screen is negative. Vitamin D is low at 21. Chest x-ray was negative. The patient was seen by Neurology. Their recommendations were noted. The patient was seen by psychiatrist. Their recommendation was noted. IMPRESSION AND PLAN: 1. Questionable paranoia. 2. Acute exacerbation of depression and anxiety. 3. History of hypertension. 4. Severe hyperlipidemia and hypertriglyceridemia. 5. Hypovitaminosis D. 6. History of generalized anxiety disorder with panic disorder and anxiety disorder. 7. History of prior inpatient hospitalization. 8. Major depression. 9. Questionable hypnotic dependency. 10. History of hypertension, normotensive at present. 11. Hypercholesterolemia, hypertriglyceridemia with elevated LDL. 12. Ketonuria, microscopic hematuria, pyuria, bacteriuria. 13. Cognitive impairment. Plan at this time, the patient is to be continued on the psychiatry floor. The patient is presently on; 1. Drisdol 50,000 weekly. 2. Klonopin 1 mg three times a day. 3. Lipitor 80 mg daily. 4. Lovaza 2 g twice a day. 5. Milk of magnesia and Maalox p.r.n. 6. Norvasc 2.5 mg daily. 7. Paxil 20 mg daily. 8. Seroquel 50 mg at bedtime. 9. The patient is on heart healthy diet. At this time, the patient is relatively stable, I do not have any further medical recommendation at this time. The patient needs to continue on Drisdol 50,000 weekly, Lipitor 80 mg daily, Lovaza 2 g twice a day and Norvasc 2.5 mg daily and the patient should have a repeat lipid panel in next few weeks. Dictated and electronically signed, not read. Massimo Khan MD
[2017-11-16] MEDS: Omega-3-Acid Ethyl Esters 1 GM Cap PO SCH ×2 (09:03→17:41)
--- NOTE | 2017-11-16 14:23 | PCM.PYCHPN ---
Psychiatric Progress Note - Psychiatric Progress Note Patient seen today, length of contact: 30min Patient Chief Complaint: "I thought my psychiatrist will figure out what medications I need to take" Problems Identified/Issues Discussed: Suicide/ homicide prevention, past psychiatric h/o, current psychiatric symptoms , medical problems, risk/benefits and alternatives of medications, medications compliance, coping strategies, substance abuse h/o, relapse prevention, importance of follow up with psychiatrist and therapist, discharge plan. Medical Problems: low vit D hypercholesterolemia HTN Diagnostic Results: 11/11/17 15:15 11/11/17 15:15 Lab Results 11/14/17 07:45: Free T4 1.02, Thyroxine (T4) 8.0, TSH 3rd Generation 0.77 11/14/17 07:45: 25-OH Vitamin D Total 21.1 L 11/13/17 22:00: Urine Color Light yellow, Urine Appearance Clear, Urine pH 6.0, Ur Specific [place] 1.015, Urine Protein Negative, Urine Glucose (UA) Negative, Urine Ketones Negative, Urine Blood Small H, Urine Nitrate Negative, Urine Bilirubin Negative, Urine Urobilinogen 0.2, Ur Leukocyte Esterase Trace H, Urine RBC 2 - 5, Urine WBC 2 - 5, Ur Epithelial Cells 0 - 2, Urine Bacteria Mod , Urine Other Mucus 11/12/17 07:30: RPR Nonreactive 11/12/17 07:30: Triglycerides 227 H, Cholesterol 305 H, LDL Cholesterol Direct 181 H, HDL Cholesterol 51 11/11/17 16:00: Urine Opiates Screen Negative, Urine Methadone Screen Negative, Ur Barbiturates Screen Negative, Ur Phencyclidine Scrn Negative, Ur Amphetamines Screen Negative, U Benzodiazepines Scrn Positive, U Oth Cocaine Metabols Negative, U Cannabinoids Screen Negative 11/11/17 16:00: Urine Color Yellow, Urine Appearance Sl cloudy, Urine pH 6.0, Ur Specific [place] >= 1.030, Urine Protein Negative, Urine Glucose (UA) Negative, Urine Ketones Trace H, Urine Blood Moderate H, Urine Nitrate Negative , Urine Bilirubin Negative, Urine Urobilinogen 0.2, Ur Leukocyte Esterase Small H, Urine RBC 1 - 3, Urine WBC 5 - 10, Ur Epithelial Cells 10 - 12, Calcium Oxalate Crystal Few, Urine Bacteria Few 11/11/17 15:15: Alcohol, Quantitative < 10 11/11/17 15:15: Sodium 143, Potassium 3.6, Chloride 102, Carbon Dioxide 34 H, Anion Gap 11, BUN 16, Creatinine 0.8, Est GFR ( Amer) > 60, Est GFR (Non- Af Amer) > 60, Random Glucose 97, Calcium 9.6, Total Bilirubin 0.4, AST 23, ALT 27, Alkaline Phosphatase 49, Total Protein 6.9, Albumin 3.8, Globulin 3.0, Albumin/Globulin Ratio 1.3 11/11/17 15:15: WBC 7.8, RBC 4.19, Hgb 13.4, Hct 41.0, MCV 97.9, MCH 32.0, MCHC 32.7, RDW 13.1, Plt Count 224, MPV 10.4 Vital Signs Temp Pulse Resp BP Pulse Ox 11/15/17 09:01 106/60 11/14/17 16:00 68 128/61 11/14/17 09:06 119/83 11/14/17 07:47 98.1 F 87 20 119/83 11/13/17 16:39 74 126/80 11/13/17 07:50 131/77 11/13/17 07:00 97.3 F L 84 20 131/77 11/12/17 16:56 67 118/59 L 11/12/17 09:24 107/71 11/12/17 06:51 97.6 F 76 18 144/78 11/11/17 17:00 72 16 122/82 99 11/11/17 12:46 97.9 F 71 16 128/77 97 Temp Pulse Resp BP Pulse Ox 97.8 F 79 20 103/72 99 11/16/17 07:43 11/16/17 07:43 11/16/17 07:43 11/16/17 09:03 11/11/17 17:00 DSM 5 Symptoms Update: Patient is a 62 year old female with a history of depression and anxiety (likely MANDY and Panic Disorder), no history of prior psychiatric admissions or SA, in psychiatric treatment with Dr. Dumont and reportedly compliant with lexapro 20 mg daily and klonopin 1 mg po five times daily prn who presented to our ER with her spouse on 11/11/17 for a psychiatric evaluation and admission. According to ER report, patient was initially taken to [facility] ED in [place] a day prior to this admission, however patient was discharged despite her psychiatrist's recommendation for hospitalization. According to ER report, patient stated that she didn't want to live anymore though denied having any suicidal thoughts. pt was seen and examined, discussed with staff, notes reviewed. MINI COG 11/16/17, pt was not able to repeat three words, was not able to recall it, constructive apraxia, was not able to draw a clock. pt presented with some psychomotor retardation, pt also had difficulties to stay focused and concentrate, keeps repeating the same question over and over again, this web content writer educated patient about treatment plan, but pt was keep asking the same question, after full explanations of meds, pt said "I thought my psychiatrist will figure out what medications I need to take", this web content writer educated pt that this is what is going now, but pt was keep asking the same question again. pt said that she feels depressed, reported that her anxiety is still bad. as per staff pt has difficulties to complete the task, difficulties to concentrate, stay focused. pt tolerates meds well, no side effects observed or reported, AIMS 0, no EPS. DSM 5 Diagnosis: Major Depression by history Generalized Anxiety Disorder Panic Disorder r/o hypnotic dependency/effects of intoxication Medication Change: Yes (seroquel increased, paxil increased) Medical Record Reviewed: Yes Consults ordered or reviewed: medical consult appreciated Mental Status Examination - Cognitive Function Orientation: Person, Place Attention: Poor (some improvement today, less frenetic than her behavior on Tuesday) Concentration: Poor Association: Loose Fund of Knowledge: Poor - Mood Mood: Anxious - Affect Affect: Other (anxioiuus ) - Formal Thought Process Formal Thought Process: Loosening of associations - Suicidal Ideation Suicidal Ideation: No - Homicidal Ideation Homicidal Ideation: No Goal/Treatment Plan - Goal/Treatment Plan Need for Continued Stay: Remain at risks for inpatient hospitalization, Severe depression anxiety, Discharge may exacerbated symptoms, Severe functional impairment Progress Toward Problem(s) and Goals/Treatment Plan: Milieu/structure/supportive therapy Medical consult appreciated, see medical team note for more detailed info SW consultation for discharge plan and social issues Med management [id number] po hs for mood stabilization and possible psychosis paxil will be increased to 30mg po hs for depression and anxiety klonopin 1mg po tid for anxiety will be continued Family involvement Follow up on labs Will monitor closely Pt was educated about risk/benefits and alternatives of medications, coping strategies (safety plan, suicide prevention), relapse prevention, importance of follow up with psychiatrist and therapist, stay away from drugs/alcohol/smoking Estimated Date of D/C: 11/21/17
[2017-11-17] MEDS: Omega-3-Acid Ethyl Esters 1 GM Cap PO SCH ×2 (09:45→17:30)
--- NOTE | 2017-11-17 14:36 | PCM.PYCHPN ---
Psychiatric Progress Note - Psychiatric Progress Note Patient seen today, length of contact: 30min Patient Chief Complaint: "I remember you, but I don't remember your name". Problems Identified/Issues Discussed: Suicide/ homicide prevention, past psychiatric h/o, current psychiatric symptoms , medical problems, risk/benefits and alternatives of medications, medications compliance, coping strategies, substance abuse h/o, relapse prevention, importance of follow up with psychiatrist and therapist, discharge plan. Medical Problems: low vit D hypercholesterolemia HTN Diagnostic Results: 11/11/17 15:15 11/11/17 15:15 Lab Results 11/14/17 07:45: Free T4 1.02, Thyroxine (T4) 8.0, TSH 3rd Generation 0.77 11/14/17 07:45: 25-OH Vitamin D Total 21.1 L 11/13/17 22:00: Urine Color Light yellow, Urine Appearance Clear, Urine pH 6.0, Ur Specific [place] 1.015, Urine Protein Negative, Urine Glucose (UA) Negative, Urine Ketones Negative, Urine Blood Small H, Urine Nitrate Negative, Urine Bilirubin Negative, Urine Urobilinogen 0.2, Ur Leukocyte Esterase Trace H, Urine RBC 2 - 5, Urine WBC 2 - 5, Ur Epithelial Cells 0 - 2, Urine Bacteria Mod , Urine Other Mucus 11/12/17 07:30: RPR Nonreactive 11/12/17 07:30: Triglycerides 227 H, Cholesterol 305 H, LDL Cholesterol Direct 181 H, HDL Cholesterol 51 11/11/17 16:00: Urine Opiates Screen Negative, Urine Methadone Screen Negative, Ur Barbiturates Screen Negative, Ur Phencyclidine Scrn Negative, Ur Amphetamines Screen Negative, U Benzodiazepines Scrn Positive, U Oth Cocaine Metabols Negative, U Cannabinoids Screen Negative 11/11/17 16:00: Urine Color Yellow, Urine Appearance Sl cloudy, Urine pH 6.0, Ur Specific [place] >= 1.030, Urine Protein Negative, Urine Glucose (UA) Negative, Urine Ketones Trace H, Urine Blood Moderate H, Urine Nitrate Negative , Urine Bilirubin Negative, Urine Urobilinogen 0.2, Ur Leukocyte Esterase Small H, Urine RBC 1 - 3, Urine WBC 5 - 10, Ur Epithelial Cells 10 - 12, Calcium Oxalate Crystal Few, Urine Bacteria Few 11/11/17 15:15: Alcohol, Quantitative < 10 03/09/18 15:15: Sodium 143, Potassium 3.6, Chloride 102, Carbon Dioxide 34 H, Anion Gap 11, BUN 16, Creatinine 0.8, Est GFR ( Amer) > 60, Est GFR (Non- Af Amer) > 60, Random Glucose 97, Calcium 9.6, Total Bilirubin 0.4, AST 23, ALT 27, Alkaline Phosphatase 49, Total Protein 6.9, Albumin 3.8, Globulin 3.0, Albumin/Globulin Ratio 1.3 11/11/17 15:15: WBC 7.8, RBC 4.19, Hgb 13.4, Hct 41.0, MCV 97.9, MCH 32.0, MCHC 32.7, RDW 13.1, Plt Count 224, MPV 10.4 Vital Signs Temp Pulse Resp BP Pulse Ox 11/15/17 09:01 106/60 11/14/17 16:00 68 128/61 11/14/17 09:06 119/83 11/14/17 07:47 98.1 F 87 20 119/83 11/13/17 16:39 74 126/80 11/13/17 07:50 131/77 11/13/17 07:00 97.3 F L 84 20 131/77 11/12/17 16:56 67 118/59 L 11/12/17 09:24 107/71 11/12/17 06:51 97.6 F 76 18 144/78 11/11/17 17:00 72 16 122/82 99 11/11/17 12:46 97.9 F 71 16 128/77 97 Temp Pulse Resp BP Pulse Ox 97.8 F 79 20 103/72 99 11/16/17 07:43 11/16/17 07:43 11/16/17 07:43 11/16/17 09:03 11/11/17 17:00 Temp Pulse Resp BP Pulse Ox 98.2 F 106 H 20 148/81 99 11/17/17 07:30 11/17/17 07:30 11/17/17 07:30 11/17/17 08:30 11/11/17 17:00 DSM 5 Symptoms Update: Patient is a 62 year old female with a history of depression and anxiety (likely MANDY and Panic Disorder), no history of prior psychiatric admissions or SA, in psychiatric treatment with Dr. Dumont and reportedly compliant with lexapro 20 mg daily and klonopin 1 mg po five times daily prn who presented to our ER with her spouse on 11/11/17 for a psychiatric evaluation and admission. According to ER report, patient was initially taken to [facility] ED in [place] a day prior to this admission, however patient was discharged despite her psychiatrist's recommendation for hospitalization. According to ER report, patient stated that she didn't want to live anymore though denied having any suicidal thoughts. pt was seen and examined, discussed with staff, notes reviewed. MINI COG 11/16/17, pt was not able to repeat three words, was not able to recall it, constructive apraxia, was not able to draw a clock. MINI COG repeated 11/17/17, pt is doing much better, was able to repeat three words, 2words to recall, was able to distribute numbers on the clock face and put clockhands on 3pm. pt presented with improved personal hygiene, wears nice jeans, clean sweater, combed her hair. pt was able to concentrate better, pt was able to participate in interview in meaningful way. at the same time pt is repeats herself, OCD, but pt is more aware of her irrational behavior. pt said that she feels depressed, reported that her anxiety is still bad. as per staff pt is better organized. pt tolerates meds well, no side effects observed or reported, AIMS 0, no EPS. DSM 5 Diagnosis: Major Depression by history Generalized Anxiety Disorder Panic Disorder r/o hypnotic dependency/effects of intoxication Medication Change: Yes (seroquel increased, paxil increased) Medical Record Reviewed: Yes Consults ordered or reviewed: medical consult appreciated Mental Status Examination - Cognitive Function Orientation: Person, Place Attention: Poor (some improvement today, less frenetic than her behavior on Tuesday) Concentration: Poor Association: Loose Fund of Knowledge: Poor - Mood Mood: Anxious - Affect Affect: Other (anxioiuus ) - Formal Thought Process Formal Thought Process: Loosening of associations - Suicidal Ideation Suicidal Ideation: No - Homicidal Ideation Homicidal Ideation: No Goal/Treatment Plan - Goal/Treatment Plan Need for Continued Stay: Remain at risks for inpatient hospitalization, Severe depression anxiety, Discharge may exacerbated symptoms, Severe functional impairment Progress Toward Problem(s) and Goals/Treatment Plan: Milieu/structure/supportive therapy Medical consult appreciated, see medical team note for more detailed info SW consultation for discharge plan and social issues Med management [id number] po amhs for mood stabilization and possible psychosis paxil 30mg po hs for depression and anxiety klonopin 2mg po amhsfor anxiety will be continued Family involvement Follow up on labs Will monitor closely Pt was educated about risk/benefits and alternatives of medications, coping strategies (safety plan, suicide prevention), relapse prevention, importance of follow up with psychiatrist and therapist, stay away from drugs/alcohol/smoking Estimated Date of D/C: 11/21/17
[2017-11-18] MEDS: Omega-3-Acid Ethyl Esters 1 GM Cap PO SCH ×2 (07:06→16:40)
--- NOTE | 2017-11-18 13:06 | PN ---
DATE: 11/18/2017 SUBJECTIVE: The patient is seen in breakfast room today. The patient is sitting up in the chair. The patient does not appear to be in any distress. Overnight nurse's notes were reviewed. The patient slept well according to the patient's nurses. The patient was found to be less anxious, less paranoid, less repetitive. PHYSICAL EXAMINATION: VITAL SIGNS: T-max 98.2, pulse 84, 64, 106, blood pressure 103/61, 127/73, 148/81, respirations 20, O2 sat is 97-99%. HEENT: Head: Normocephalic, atraumatic. HEENT examination shows pink conjunctivae. Anicteric sclerae. No oropharyngeal lesion. NECK: No neck rigidity. Soft carotid bruit. CHEST: Kyphosis. LUNGS: Shows no rales, crackles or wheezing. CARDIOVASCULAR: S1 and S2. Regular rhythm. ABDOMEN: Soft. Positive bowel sound. No hepatosplenomegaly noted. GENITALIA: Female. RECTAL: Deferred. EXTREMITIES: Shows no pitting edema, no calf tenderness, no Homans' sign. MUSCULOSKELETAL: Shows a body mass index of 28.5. NEUROLOGIC: The patient is alert, awake, responsive. She is able to ambulate without any assistance. Gait examination is independent. DIAGNOSTICS: None from 11/18/2017. Microbiology: Urine culture is negative. Blood bank negative. No new reports noted except for Psychiatry evaluation. IMPRESSION AND PLAN: 1. Questionable paranoia with repetitive speech. 2. Hypovitaminosis D. 3. History of hypertension. 4. Hypercholesterolemia. 5. History of depression and anxiety and panic disorder. 6. Major depression. 7. Generalized anxiety disorder. 8. Panic disorder. 9. 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 10. Hypertriglyceridemia, hypercholesteremia with elevated LDL. 11. Microscopic hematuria. 12. Pyuria, bacteriuria. PLAN: At this time, the patient from the medical perspective is relatively stable and needs outpatient followup with the medicine doctor. In addition to the Psychiatry followup, the patient is to be continued on the following medications: 1. Drisdol 50,000 weekly. 2. Klonopin 2 mg twice a day. 3. Lipitor 80 mg daily. 4. Lovaza 2 g twice a day. 5. Norvasc 2.5 mg daily. 6. Paxil 40 mg at bedtime. 7. Seroquel 100 mg a.m. and at bedtime. 8. Tylenol 650 q.6 p.r.n. The patient was also advised about outpatient GI evaluation for scheduling screening colonoscopy, if I have never done. The patient was also advised outpatient screening mammogram and bone density, if not done.. The patient was also advised close outpatient followup with the medical physician for monitoring of the patient's lipid panel and lab data. Dictated and electronically signed, not read. Massimo Khan MD
--- NOTE | 2017-11-18 16:39 | PCM.PYCHPN ---
Psychiatric Progress Note - Psychiatric Progress Note Patient seen today, length of contact: 30min Patient Chief Complaint: "I feel little better, do think that I will be ready to go home by Tuesday?" Problems Identified/Issues Discussed: Suicide/ homicide prevention, past psychiatric h/o, current psychiatric symptoms , medical problems, risk/benefits and alternatives of medications, medications compliance, coping strategies, substance abuse h/o, relapse prevention, importance of follow up with psychiatrist and therapist, discharge plan. Medical Problems: low vit D hypercholesterolemia HTN Diagnostic Results: 11/11/17 15:15 11/11/17 15:15 Lab Results 11/14/17 07:45: Free T4 1.02, Thyroxine (T4) 8.0, TSH 3rd Generation 0.77 11/14/17 07:45: 25-OH Vitamin D Total 21.1 L 11/13/17 22:00: Urine Color Light yellow, Urine Appearance Clear, Urine pH 6.0, Ur Specific Bloxom 1.015, Urine Protein Negative, Urine Glucose (UA) Negative, Urine Ketones Negative, Urine Blood Small H, Urine Nitrate Negative, Urine Bilirubin Negative, Urine Urobilinogen 0.2, Ur Leukocyte Esterase Trace H, Urine RBC 2 - 5, Urine WBC 2 - 5, Ur Epithelial Cells 0 - 2, Urine Bacteria Mod , Urine Other Mucus 11/12/17 07:30: RPR Nonreactive 11/12/17 07:30: Triglycerides 227 H, Cholesterol 305 H, LDL Cholesterol Direct 181 H, HDL Cholesterol 51 11/11/17 16:00: Urine Opiates Screen Negative, Urine Methadone Screen Negative, Ur Barbiturates Screen Negative, Ur Phencyclidine Scrn Negative, Ur Amphetamines Screen Negative, U Benzodiazepines Scrn Positive, U Oth Cocaine Metabols Negative, U Cannabinoids Screen Negative 11/11/17 16:00: Urine Color Yellow, Urine Appearance Sl cloudy, Urine pH 6.0, Ur Specific Bloxom >= 1.030, Urine Protein Negative, Urine Glucose (UA) Negative, Urine Ketones Trace H, Urine Blood Moderate H, Urine Nitrate Negative , Urine Bilirubin Negative, Urine Urobilinogen 0.2, Ur Leukocyte Esterase Small H, Urine RBC 1 - 3, Urine WBC 5 - 10, Ur Epithelial Cells 10 - 12, Calcium Oxalate Crystal Few, Urine Bacteria Few 11/11/17 15:15: Alcohol, Quantitative < 10 11/11/17 15:15: Sodium 143, Potassium 3.6, Chloride 102, Carbon Dioxide 34 H, Anion Gap 11, BUN 16, Creatinine 0.8, Est GFR ( Amer) > 60, Est GFR (Non- Af Amer) > 60, Random Glucose 97, Calcium 9.6, Total Bilirubin 0.4, AST 23, ALT 27, Alkaline Phosphatase 49, Total Protein 6.9, Albumin 3.8, Globulin 3.0, Albumin/Globulin Ratio 1.3 11/11/17 15:15: WBC 7.8, RBC 4.19, Hgb 13.4, Hct 41.0, MCV 97.9, MCH 32.0, MCHC 32.7, RDW 13.1, Plt Count 224, MPV 10.4 Vital Signs Temp Pulse Resp BP Pulse Ox 11/15/17 09:01 106/60 11/14/17 16:00 68 128/61 11/14/17 09:06 119/83 11/14/17 07:47 98.1 F 87 20 119/83 11/13/17 16:39 74 126/80 11/13/17 07:50 131/77 11/13/17 07:00 97.3 F L 84 20 131/77 11/12/17 16:56 67 118/59 L 11/12/17 09:24 107/71 11/12/17 06:51 97.6 F 76 18 144/78 11/11/17 17:00 72 16 122/82 99 11/11/17 12:46 97.9 F 71 16 128/77 97 Temp Pulse Resp BP Pulse Ox 97.8 F 79 20 103/72 99 11/16/17 07:43 11/16/17 07:43 11/16/17 07:43 11/16/17 09:03 11/11/17 17:00 Temp Pulse Resp BP Pulse Ox 98.2 F 106 H 20 148/81 99 11/17/17 07:30 11/17/17 07:30 11/17/17 07:30 11/17/17 08:30 11/11/17 17:00 Temp Pulse Resp BP Pulse Ox 98.2 F 84 20 103/60 99 11/18/17 07:46 11/18/17 07:46 11/18/17 07:46 11/18/17 07:46 11/11/17 17:00 DSM 5 Symptoms Update: Patient is a 62 year old female with a history of depression and anxiety (likely MANDY and Panic Disorder), no history of prior psychiatric admissions or SA, in psychiatric treatment with Dr. Dumont and reportedly compliant with lexapro 20 mg daily and klonopin 1 mg po five times daily prn who presented to our ER with her spouse on 11/11/17 for a psychiatric evaluation and admission. According to ER report, patient was initially taken to [facility] ED in [place] a day prior to this admission, however patient was discharged despite her psychiatrist's recommendation for hospitalization. According to ER report, patient stated that she didn't want to live anymore though denied having any suicidal thoughts. pt was seen and examined, discussed with staff, notes reviewed. MINI COG 11/16/17, pt was not able to repeat three words, was not able to recall it, constructive apraxia, was not able to draw a clock. MINI COG repeated 11/17/17, pt is doing much better, was able to repeat three words, 2words to recall, was able to distribute numbers on the clock face and put clock hands on 3pm. pt presented with improved personal hygiene, combed her hair. pt was able to concentrate better, pt was able to participate in interview in meaningful way. at the same time pt is repeats herself, OCD, but pt is more aware of her irrational behavior, pt has good appetite and sleep, more visible in the unit. pt said that she feels depressed, reported that her anxiety is still bad. as per staff pt is better organized. pt tolerates meds well, no side effects observed or reported, AIMS 0, no EPS. DSM 5 Diagnosis: Major Depression by history Generalized Anxiety Disorder Panic Disorder r/o hypnotic dependency/effects of intoxication Medication Change: Yes (seroquel increased) Medical Record Reviewed: Yes Mental Status Examination - Cognitive Function Orientation: Person, Place Attention: Poor (some improvement today, less frenetic than her behavior on Tuesday) Concentration: Poor Association: Loose Fund of Knowledge: Poor - Mood Mood: Anxious - Affect Affect: Other (anxioiuus ) - Formal Thought Process Formal Thought Process: Loosening of associations - Suicidal Ideation Suicidal Ideation: No - Homicidal Ideation Homicidal Ideation: No Goal/Treatment Plan - Goal/Treatment Plan Need for Continued Stay: Remain at risks for inpatient hospitalization, Severe depression anxiety, Discharge may exacerbated symptoms, Severe functional impairment Progress Toward Problem(s) and Goals/Treatment Plan: Milieu/structure/supportive therapy Medical consult appreciated, see medical team note for more detailed info SW consultation for discharge plan and social issues Med management [id number] po amhs for mood stabilization and possible psychosis paxil 30mg po hs for depression and anxiety klonopin 2mg po amhsfor anxiety will be continued Family involvement Follow up on labs Will monitor closely Pt was educated about risk/benefits and alternatives of medications, coping strategies (safety plan, suicide prevention), relapse prevention, importance of follow up with psychiatrist and therapist, stay away from drugs/alcohol/smoking Estimated Date of D/C: 11/21/17
[2017-11-19] MEDS: Lactobacillus Acidophilus 500 MU Cap PO SCH ×3 (00:01→16:41)
[2017-11-19 08:20] LABS: BASO # 0.02 K/mm3 (0.0-2.0); BASO % 0.2 % (0.0-3.0); EOS # 0.1 (0.0-0.7); GRAN # 8.28 (1.4-6.5); GRAN % 64.9 % (50.0-68.0); HEMOGLOBIN 14.4 g/dL (12.0-16.0); LYMPH # 3.6 (1.2-3.4); LYMPH % 28.1 % (22.0-35.0); MEAN CELL VOLUME 96.9 fl (80.0-105.0); MEAN CORPUSCULAR HEMOGLOBIN 31.6 pg (25.0-35.0); MEAN CORPUSCULAR HGB CONC 32.6 g/dl (31.0-37.0); MEAN PLATELET VOLUME 10.4 fl (7.0-11.0); MONO # 0.7 (0.1-0.6); MONO % 5.8 % (1.0-6.0); RBC 4.56 10^6/uL (3.5-6.1); RED CELL DISTRIBUTION WIDTH 13.5 % (11.5-14.5); WHITE BLOOD COUNT 12.8 10^3/ul (4.5-11.0)
[2017-11-19 09:06] LABS: ALB/GLOB RATIO 1.3 (1.1-1.8); ALBUMIN 4.2 g/dL (3.0-4.8); ALT/SGPT 69 U/L (7-56); AST/SGOT 48 U/L (14-36); BILIRUBIN,DIRECT 0.3 mg/dL (0.0-0.4); BLOOD UREA NITROGEN 22 mg/dL (7-21); CALCIUM 9.6 mg/dL (8.4-10.5); GFR AFRICAN-AMERICAN > 60; GFR NON-AFRICAN AMERICAN > 60
[2017-11-19] MEDS: Pantoprazole 40 mg EC Tab PO SCH ×2 (09:20→16:41)
[2017-11-19] MEDS: Omega-3-Acid Ethyl Esters 1 GM Cap PO SCH ×2 (09:20→16:41)
[2017-11-19] MEDS ORDERED: Potassium Chloride 20 mEq ER Tab PO ONE (10:37)
--- NOTE | 2017-11-19 11:54 | PCM.PYCHPN ---
Psychiatric Progress Note - Psychiatric Progress Note Patient seen today, length of contact: 25 min Patient Chief Complaint: anxiety Problems Identified/Issues Discussed: History of Present Illness and Precipitating Events: Patient is a 62 year old female with a history of depression and anxiety (likely MANDY and Panic Disorder), no history of prior psychiatric admissions or SA, in psychiatric treatment with Dr. Dumont and reportedly compliant with lexapro 20 mg daily and klonopin 1 mg po five times daily prn who presented to our ER with her spouse yesterday 11/11/17 for a psychiatric evaluation and admission. According to ER report, patient was initially taken to [facility] ED in [place] yesterday morning for admission however patient was discharged despite her psychiatrist's recommendation for hospitalization. According to ER report, patient stated that she didn't want to live anymore though denied having any suicidal thoughts. I met with patient at bedside today. She is alert and oriented to month and location. She initially informed me that it was 2018. Patient indicates she doesn't know why she was admitted to a psychiatric unit. She admits to feelings of depression and hopelessness "sometimes in my life" though denies any current symptoms. Appears a little guarded. Indicates that she worries a lot and repeatedly brings up how nervous she is regarding her clothing on the unit. It is a little difficult to redirect her from this preoccupation in order to discuss her general functioning and symptoms. Patient admits to excessive and persistent worry about "things in my life" and finds it difficult to control her worry. Patient also admits to daily panic episodes. Her anxiety symptoms interfere with her sleep and functioning. Patient denies any recent stressors even with repeated questioning. Specifically denies financial, housing or family issues. Reports having a good relationship with her . Patient reports compliance with her psychiatric medications in so far as she takes the medications her tells her to take every day. Patient is preoccupied and distracted with her thoughts so her engagement with me is superficial. Sometimes she talks to herself for the sake of talking, she doesn't actually appear to be responding to internal stimuli. Patient heard mumbling repeatedly "I don't know what to do with myself all day long, what am I going to do with myself". Patient denies perceptual disturbance when directly questioned by this provider. She seems uneasy because she's in a new environment but denies any physical discomfort or pain. PSYCHIATRIC HISTORY Denies prior admissions Denies history of SA Patient reports being in treatment with Dr. Dumont "for many many years". Her medication regimen includes Lexapro 20 mg po daily and klonopin 1 mg po five times daily. She denies any other medication trials. Patient adds that Dr. Dumont also prescribes her Norvasc. She denies any other medication trials. SOCIAL HISTORY Patient was born and raised in [place]. She has been 30+ years and resides with her . She has no children. She graduated high school. 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 Patient reports that she smoked MJA as a teenager but denies any drug use for many years since then. Denies alcohol issues. Patient denies any current tobacco use "I quit a long time ago". Progress Note I reviewed recent notes and interviewed patient in her room. Patient's focus is a little improved today though her engagement and understanding of circumstances is still superficial. She still ruminates about her worries and talks to herself for the sake of talking. Rambles and can be repetitive about minor issues. Patient can be redirected and appears a little calmer than last weekend. Grooming is better. Patient reports that her anxiety is "so-so" today. She is toleraing her medications and denies any side effects. She slept well last night and there were no behavioral issues. She is still odd with limited understanding of the circumstances of this admission. At the very least she has a limited ability to express this knowledge. I had to remind patient again not to disrobe in the hallway. Patient denies perceptual disturbance and doesn't actually appear to be responding to internal stimuli. There were no behavioral issues overnight. Diagnostic Results: Major Depression by history Generalized Anxiety Disorder Panic Disorder r/o hypnotic dependency/effects of intoxication Medication Change: Yes (seroquel increased) Medical Record Reviewed: Yes Mental Status Examination - Cognitive Function Orientation: Person, Place Attention: Poor (some improvement today, less frenetic than her behavior on Tuesday) Concentration: Poor Association: Loose Fund of Knowledge: Poor - Mood Mood: Anxious - Affect Affect: Other (anxioiuus ) - Formal Thought Process Formal Thought Process: Loosening of associations - Suicidal Ideation Suicidal Ideation: No - Homicidal Ideation Homicidal Ideation: No Goal/Treatment Plan - Goal/Treatment Plan Need for Continued Stay: Remain at risks for inpatient hospitalization, Severe depression anxiety, Discharge may exacerbated symptoms, Severe functional impairment Progress Toward Problem(s) and Goals/Treatment Plan: * group, milieu and supportive tx * Paxil 40 mg po HS for depression and anxiety, titrate as tolerated for symptoms. I reviewed indications, dosing, therapeutic latency and possible side effects with patient on 11/12/17 and she consented for treatment * Klonopin 2 mg BID for anxiety * Seroquel to 150 mg AMHS for disorganization and off-label for poor sleep * Vitals reviewed and noted below: 11/19/17 07:37 Temperature 98.0 F Pulse Rate 80 Respiratory 20 Rate Blood Pressure 104/63 WEEKEND FLOOR LABS PENDING Estimated Date of D/C: 11/21/17
[2017-11-19] MEDS: Vancomycin 25 MG/ML PO SCH ×3 (13:18→21:34)
[2017-11-20] MEDS: Pantoprazole 40 mg EC Tab PO SCH ×2 (06:18→16:14)
[2017-11-20 07:55] LABS: BASO # 0.02 K/mm3 (0.0-2.0); BASO % 0.3 % (0.0-3.0); EOS # 0.2 (0.0-0.7); EOS % 2.5 % (1.5-5.0); GRAN # 2.94 (1.4-6.5); GRAN % 49.9 % (50.0-68.0); LYMPH # 2.1 (1.2-3.4); MEAN CELL VOLUME 97.2 fl (80.0-105.0); MEAN CORPUSCULAR HEMOGLOBIN 31.1 pg (25.0-35.0); MEAN PLATELET VOLUME 10.1 fl (7.0-11.0); MONO # 0.7 (0.1-0.6); MONO % 11.3 % (1.0-6.0); RBC 3.86 10^6/uL (3.5-6.1); RED CELL DISTRIBUTION WIDTH 13.4 % (11.5-14.5); WHITE BLOOD COUNT 5.9 10^3/ul (4.5-11.0)
[2017-11-20 08:13] LABS: ALB/GLOB RATIO 1.2 (1.1-1.8); ALBUMIN 3.4 g/dL (3.0-4.8); ALT/SGPT 50 U/L (7-56); AST/SGOT 26 U/L (14-36); BILIRUBIN,DIRECT 0.2 mg/dL (0.0-0.4); BLOOD UREA NITROGEN 18 mg/dL (7-21); CALCIUM 9.4 mg/dL (8.4-10.5); GFR AFRICAN-AMERICAN > 60; GFR NON-AFRICAN AMERICAN > 60
[2017-11-20] MEDS: Lactobacillus Acidophilus 500 MU Cap PO SCH ×2 (09:55→16:14)
[2017-11-20] MEDS: Omega-3-Acid Ethyl Esters 1 GM Cap PO SCH ×2 (09:55→16:15)
[2017-11-20] MEDS: Vancomycin 25 MG/ML PO SCH ×2 (10:04→14:11)
--- NOTE | 2017-11-20 10:59 | PCM.PYCHPN ---
Psychiatric Progress Note - Psychiatric Progress Note Patient seen today, length of contact: 25 min Patient Chief Complaint: anxiety Problems Identified/Issues Discussed: History of Present Illness and Precipitating Events: Patient is a 62 year old female with a history of depression and anxiety (likely MANDY and Panic Disorder), no history of prior psychiatric admissions or SA, in psychiatric treatment with Dr. Dumont and reportedly compliant with lexapro 20 mg daily and klonopin 1 mg po five times daily prn who presented to our ER with her spouse yesterday 11/11/17 for a psychiatric evaluation and admission. According to ER report, patient was initially taken to [facility] ED in [place] yesterday morning for admission however patient was discharged despite her psychiatrist's recommendation for hospitalization. According to ER report, patient stated that she didn't want to live anymore though denied having any suicidal thoughts. I met with patient at bedside today. She is alert and oriented to month and location. She initially informed me that it was 2018. Patient indicates she doesn't know why she was admitted to a psychiatric unit. She admits to feelings of depression and hopelessness "sometimes in my life" though denies any current symptoms. Appears a little guarded. Indicates that she worries a lot and repeatedly brings up how nervous she is regarding her clothing on the unit. It is a little difficult to redirect her from this preoccupation in order to discuss her general functioning and symptoms. Patient admits to excessive and persistent worry about "things in my life" and finds it difficult to control her worry. Patient also admits to daily panic episodes. Her anxiety symptoms interfere with her sleep and functioning. Patient denies any recent stressors even with repeated questioning. Specifically denies financial, housing or family issues. Reports having a good relationship with her . Patient reports compliance with her psychiatric medications in so far as she takes the medications her tells her to take every day. Patient is preoccupied and distracted with her thoughts so her engagement with me is superficial. Sometimes she talks to herself for the sake of talking, she doesn't actually appear to be responding to internal stimuli. Patient heard mumbling repeatedly "I don't know what to do with myself all day long, what am I going to do with myself". Patient denies perceptual disturbance when directly questioned by this provider. She seems uneasy because she's in a new environment but denies any physical discomfort or pain. PSYCHIATRIC HISTORY Denies prior admissions Denies history of SA Patient reports being in treatment with Dr. Dumont "for many many years". Her medication regimen includes Lexapro 20 mg po daily and klonopin 1 mg po five times daily. She denies any other medication trials. Patient adds that Dr. Dumont also prescribes her Norvasc. She denies any other medication trials. SOCIAL HISTORY Patient was born and raised in [place]. She has been 30+ years and resides with her . She has no children. She graduated high school. 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 Patient reports that she smoked MJA as a teenager but denies any drug use for many years since then. Denies alcohol issues. Patient denies any current tobacco use "I quit a long time ago". Progress Note I reviewed recent notes and interviewed patient in her room. Patient's focus is a little improved today though her engagement and understanding of circumstances is still superficial. She still ruminates about her worries and talks to herself for the sake of talking. Rambles and can be repetitive about minor issues. Staff notes also indicate that she is anxious and repeatedly asks the same questions despite reassurances. She paces the unit and her anxious behaviors have been annoying other patients. Patient is oriented to month, year and location. She tells me that her mood is "okay" however her anxiety persists "I am still nervous here". We review her behaviors including her inappropriate disrobing on the unit. I also discuss my concerns about how her anxiety is contributing to her disorganization. Patient continues to tolerate her medications and denies any side effects. She slept well last night. She is still odd with limited understanding of the circumstances of this admission. At the very least she has a limited ability to express this knowledge. Patient denies perceptual disturbance and doesn't actually appear to be responding to internal stimuli. There were no other behavioral issues overnight. Diagnostic Results: Major Depression by history Generalized Anxiety Disorder Panic Disorder r/o hypnotic dependency/effects of intoxication Medication Change: Yes (seroquel increased) Medical Record Reviewed: Yes Mental Status Examination - Cognitive Function Orientation: Person, Place Attention: Poor (some improvement today, less frenetic than her behavior on Tuesday) Concentration: Poor Association: Loose Fund of Knowledge: Poor - Mood Mood: Anxious - Affect Affect: Other (anxioiuus ) - Formal Thought Process Formal Thought Process: Loosening of associations - Suicidal Ideation Suicidal Ideation: No - Homicidal Ideation Homicidal Ideation: No Goal/Treatment Plan - Goal/Treatment Plan Need for Continued Stay: Remain at risks for inpatient hospitalization, Severe depression anxiety, Discharge may exacerbated symptoms, Severe functional impairment Progress Toward Problem(s) and Goals/Treatment Plan: * group, milieu and supportive tx * Paxil 40 mg po HS for depression and anxiety, titrate as tolerated for symptoms. I reviewed indications, dosing, therapeutic latency and possible side effects with patient on 11/12/17 and she consented for treatment * Klonopin changed to 1 mg po BID and 2 mg HS to cover anxiety during the afternoon/evening * Seroquel 150 mg AMHS for disorganization and off-label for poor sleep * Vitals reviewed and noted below: 11/20/17 07:23 Temperature 97.8 F Pulse Rate 80 Respiratory 18 Rate Blood Pressure 119/60 WEEKEND FLOOR LABS PENDING 11/19/17 11/19/17 11/20/17 08:00 08:00 07:30 WBC 12.8 H D 5.9 D RBC 4.56 3.86 Hgb 14.4 12.0 D Hct 44.2 37.5 MCV 96.9 97.2 MCH 31.6 31.1 MCHC 32.6 32.0 RDW 13.5 13.4 Plt Count 257 184 MPV 10.4 10.1 Gran % 64.9 49.9 L Lymph % (Auto) 28.1 36.0 H Sampson % (Auto) 5.8 11.3 H Eos % (Auto) 1.0 L 2.5 Baso % (Auto) 0.2 0.3 Gran # 8.28 H 2.94 Lymph # (Auto) 3.6 H 2.1 Sampson # (Auto) 0.7 H 0.7 H Eos # (Auto) 0.1 0.2 Baso # (Auto) 0.02 0.02 Sodium 137 Potassium 3.7 Chloride 98 Carbon Dioxide 31 Anion Gap 13 BUN 22 H Creatinine 0.8 Est GFR (Non-Af Amer) > 60 Random Glucose 112 H Calcium 9.6 Total Bilirubin 0.7 Direct Bilirubin 0.3 AST 48 H D ALT 69 H Alkaline Phosphatase 62 Total Protein 7.4 Albumin 4.2 Globulin 3.2 Albumin/Globulin Ratio 1.3 11/20/17 07:30 WBC RBC Hgb Hct MCV MCH MCHC RDW Plt Count MPV Gran % Lymph % (Auto) Sampson % (Auto) Eos % (Auto) Baso % (Auto) Gran # Lymph # (Auto) Sampson # (Auto) Eos # (Auto) Baso # (Auto) Sodium 139 Potassium 4.2 Chloride 101 Carbon Dioxide 31 Anion Gap 11 BUN 18 Creatinine 0.8 Est GFR (Non-Af Amer) > 60 Random Glucose 86 Calcium 9.4 Total Bilirubin 0.4 Direct Bilirubin 0.2 AST 26 ALT 50 Alkaline Phosphatase 49 Total Protein 6.0 Albumin 3.4 Globulin 2.7 Albumin/Globulin Ratio 1.2 Estimated Date of D/C: 11/21/17
--- NOTE | 2017-11-20 20:46 | PN ---
DATE: 11/20/2017 SUBJECTIVE: The patient is seen in her room 519, bed 2. Patient was seen initially in the dayroom. Patient ambulated to her room without any assistance. Patient was found to be alert, awake, and responsive. Patient today appears to be preoccupied with her clothing and worried about her clothing, which she had on her when she came to the psychiatry floor. Patient seems to be preoccupied about the above. There is no documented events of diarrhea according to the nurses' notes today and also yesterday. Patient states that she has been wearing diapers, but there is no events of diarrhea documented. PHYSICAL EXAMINATION: VITAL SIGNS: T-max 97.8, pulse 80, blood pressure . HEENT: Head normocephalic, atraumatic. HEENT examination shows pink conjunctivae. Anicteric sclerae. No oropharyngeal lesion. Positive hirsutism noted. NECK: No neck rigidity. Soft carotid bruit. CHEST: Kyphosis. LUNGS: Shows no rales, crackles, or wheezing. CARDIOVASCULAR: S1 and S2. Regular rhythm. No audible murmur, gallop, or rub. ABDOMEN: Soft. Positive bowel sounds. GENITALIA: Female. RECTAL: Deferred. EXTREMITIES: Shows no pitting edema, no calf tenderness, no Homans sign. NEUROLOGIC: The patient is alert, awake, responsive. Follows command. Moves upper and lower extremity without assistance. Gait examination is independent. VASCULAR: Palpable pulses. PSYCHIATRIC: As per the psychiatrist evaluation. DIAGNOSTICS: From 11/20/2017, WBC down to 5.9; hemoglobin and hematocrit are 12.6 and 37.5; platelet 184. Chemistry and LFT's are completely normal. C. diff antigen and toxin is negative. Results are available in the computer. IMPRESSION: 1. Diarrhea (etiology undermined), resolved. 2. History of hypertension. 3. History of hyperlipidemia. 4. Acute exacerbation of depression and anxiety. 5. Possibly preoccupied state. 6. Transient transaminitis. 7. Transient leukocytosis. 8. Hypovitaminosis B. 9. Hypercholesterolemia, hypertriglyceridemia. 10. History of depression. 11. Questionable hirsutism. PLAN: At this time, patient is to be continued on Bacid 1 capsule twice a day for another 24 to 48 hours, Drisdol 50,000 weekly. Patient is on Klonopin 1 mg twice a day and Klonopin 2 mg at bedtime. Patient is on Lovaza 2 g twice a day, Norvasc 2.5 mg daily. Patient is on Paxil 40 mg daily, Protonix 40 mg once or twice a day, Seroquel 150 mg a.m. and at bedtime, Tylenol 650 mg q. 6 p.r.n. At present, patient needs to be continued on above therapeutic intervention. Since patient's complaints of diarrhea have resolved, we will discontinue p.o. vancomycin, which was started yesterday as an empiric therapy since patient's C. diff toxin and antigen is negative. At this time, patient is medically stable for further psychiatric intervention, treatment plan, and patient is stable for discharge from medical perspective. Patient has been advised extensively about patient's need for close outpatient followup with Internal Medicine suggestion and also patient should have a screening mammogram, bone density, and screening colonoscopy as she has never had one, in addition to close followup with the Psychiatry for further management. All of the above has been explained to the patient on almost daily basis in layman's language. All questions and concerns answered, with patient acknowledged understood. Dictated and electronically signed, not read. Massimo Khan MD
[2017-11-21] MEDS: Pantoprazole 40 mg EC Tab PO SCH ×2 (06:08→17:45)
--- NOTE | 2017-11-21 09:16 | PN ---
DATE: 11/19/2017 SUBJECTIVE: The patient was seen in the dayroom. Initially, the patient was in the breakfast room, then the patient was asked to come to the dayroom for examination and evaluation. The patient is alert, awake, and responsive. REVIEW OF SYSTEMS: A 13-system review, the patient was noted by the nurses to have 1 or 2 episodes of diarrhea yesterday, last night. At present, today, the patient was seen between the hours of 8.30 and 9:00 a.m. The patient denies any diarrhea since the morning. Patient states that she has been wearing diapers to prevent mishap. The patient denies any abdominal pain. Denies chest pain. Denies nausea, vomiting. Denies constipation. PHYSICAL EXAMINATION: VITAL SIGNS: T-max is 98.2, pulse 76 to 84, respirations 18 to 20, blood pressure 104/63 to 120/76. HEAD: Normocephalic and atraumatic. EENT: Shows pink conjunctivae. Anicteric sclerae. No oropharyngeal lesion. NECK: No neck rigidity. CHEST: Kyphosis. LUNGS: Show no rales, crackles, or wheezing. CARDIOVASCULAR: S1 and S2. Regular rhythm. ABDOMEN: Completely soft. Positive bowel sounds. No hyperactive bowel sounds noted. No guarding. No rigidity. No rebound tenderness. No costovertebral angle tenderness. GENITALIA: Female. RECTAL: Deferred. EXTREMITIES: Show no pitting edema, no calf tenderness, no Homans' sign. NEUROLOGIC: The patient is alert, awake, responsive. She is able to move upper and lower extremities without assistance. Gait examination is independent. VASCULAR: Palpable pulses. DIAGNOSTICS: On 11/19/2017, WBC 12.8, hemoglobin and hematocrit are 14.4 and 44.2, and platelets 257. BUN 22, creatinine 0.8. AST is 48 and ALT is 69, slightly elevated. The patient's stool C. diff is pending, which is ordered and collected. IMPRESSION: 1. Diarrhea, etiology undetermined. 2. Questionable and possible drug effect secondary to Maalox and milk of magnesia. 3. Leukocytosis. 4. Mild prerenal kidney injury versus dehydration. 5. New onset of transaminitis. 6. Acute exacerbation of depression and anxiety. 7. History of severe hypercholesterolemia and hypertriglyceridemia. PLAN: At this time, the patient was started on empiric therapy for possible suspicious C. diff colitis with Vancocin 250 mg four times a day. The patient's laxative and stool softeners are discontinued. The patient was honored. The patient was explained about the details of her medical condition, which she acknowledged and understand. The patient was accompanied back to the breakfast room. The patient will be continued on Bacid 1 capsule 2 to 3 times a day for the next 2 to 3 days, p.o. Vancocin 250 mg four time a day. Stool C. diff ordered. Repeat CBC, CMP, LFTs ordered. High-dose statin, Lipitor stopped. Milk of magnesia and Maalox p.r.n. stopped. The patient's repeat lab work will be reviewed when available. The patient's stool C. diff will be reviewed when available. Dictated and electronically signed, not read. Massimo Khan MD
[2017-11-21] MEDS: Omega-3-Acid Ethyl Esters 1 GM Cap PO SCH ×2 (09:37→17:45)
[2017-11-21] MEDS: Lactobacillus Acidophilus 500 MU Cap PO SCH (09:37)
[2017-11-21 14:40] VITALS: RESP 20
--- NOTE | 2017-11-21 14:53 | PCM.PYCHPN ---
Psychiatric Progress Note - Psychiatric Progress Note Patient seen today, length of contact: 25 min Patient Chief Complaint: "I feel little better do you feel I could go home tomorrow?" Problems Identified/Issues Discussed: Suicide/ homicide prevention, past psychiatric h/o, current psychiatric symptoms , medical problems, risk/benefits and alternatives of medications, medications compliance, coping strategies, substance abuse h/o, relapse prevention, importance of follow up with psychiatrist and therapist, discharge plan. Medical Problems: low vit D hypercholesterolemia HTN Diagnostic Results: 11/11/17 15:15 11/11/17 15:15 Lab Results 11/14/17 07:45: Free T4 1.02, Thyroxine (T4) 8.0, TSH 3rd Generation 0.77 11/14/17 07:45: 25-OH Vitamin D Total 21.1 L 11/13/17 22:00: Urine Color Light yellow, Urine Appearance Clear, Urine pH 6.0, Ur Specific Daisy 1.015, Urine Protein Negative, Urine Glucose (UA) Negative, Urine Ketones Negative, Urine Blood Small H, Urine Nitrate Negative, Urine Bilirubin Negative, Urine Urobilinogen 0.2, Ur Leukocyte Esterase Trace H, Urine RBC 2 - 5, Urine WBC 2 - 5, Ur Epithelial Cells 0 - 2, Urine Bacteria Mod , Urine Other Mucus 11/12/17 07:30: RPR Nonreactive 11/12/17 07:30: Triglycerides 227 H, Cholesterol 305 H, LDL Cholesterol Direct 181 H, HDL Cholesterol 51 11/11/17 16:00: Urine Opiates Screen Negative, Urine Methadone Screen Negative, Ur Barbiturates Screen Negative, Ur Phencyclidine Scrn Negative, Ur Amphetamines Screen Negative, U Benzodiazepines Scrn Positive, U Oth Cocaine Metabols Negative, U Cannabinoids Screen Negative 11/11/17 16:00: Urine Color Yellow, Urine Appearance Sl cloudy, Urine pH 6.0, Ur Specific Daisy >= 1.030, Urine Protein Negative, Urine Glucose (UA) Negative, Urine Ketones Trace H, Urine Blood Moderate H, Urine Nitrate Negative , Urine Bilirubin Negative, Urine Urobilinogen 0.2, Ur Leukocyte Esterase Small H, Urine RBC 1 - 3, Urine WBC 5 - 10, Ur Epithelial Cells 10 - 12, Calcium Oxalate Crystal Few, Urine Bacteria Few 11/11/17 15:15: Alcohol, Quantitative < 10 11/11/17 15:15: Sodium 143, Potassium 3.6, Chloride 102, Carbon Dioxide 34 H, Anion Gap 11, BUN 16, Creatinine 0.8, Est GFR ( Amer) > 60, Est GFR (Non- Af Amer) > 60, Random Glucose 97, Calcium 9.6, Total Bilirubin 0.4, AST 23, ALT 27, Alkaline Phosphatase 49, Total Protein 6.9, Albumin 3.8, Globulin 3.0, Albumin/Globulin Ratio 1.3 11/11/17 15:15: WBC 7.8, RBC 4.19, Hgb 13.4, Hct 41.0, MCV 97.9, MCH 32.0, MCHC 32.7, RDW 13.1, Plt Count 224, MPV 10.4 Vital Signs Temp Pulse Resp BP Pulse Ox 11/15/17 09:01 106/60 11/14/17 16:00 68 128/61 11/14/17 09:06 119/83 11/14/17 07:47 98.1 F 87 20 119/83 11/13/17 16:39 74 126/80 11/13/17 07:50 131/77 11/13/17 07:00 97.3 F L 84 20 131/77 11/12/17 16:56 67 118/59 L 11/12/17 09:24 107/71 11/12/17 06:51 97.6 F 76 18 144/78 11/11/17 17:00 72 16 122/82 99 11/11/17 12:46 97.9 F 71 16 128/77 97 Temp Pulse Resp BP Pulse Ox 97.8 F 79 20 103/72 99 11/16/17 07:43 11/16/17 07:43 11/16/17 07:43 11/16/17 09:03 11/11/17 17:00 Temp Pulse Resp BP Pulse Ox 98.2 F 106 H 20 148/81 99 11/17/17 07:30 11/17/17 07:30 11/17/17 07:30 11/17/17 08:30 11/11/17 17:00 Temp Pulse Resp BP Pulse Ox 98.2 F 84 20 103/60 99 11/18/17 07:46 11/18/17 07:46 11/18/17 07:46 11/18/17 07:46 11/11/17 17:00 DSM 5 Symptoms Update: Patient is a 62 year old female with a history of depression and anxiety (likely MANDY and Panic Disorder), no history of prior psychiatric admissions or SA, in psychiatric treatment with Dr. Dumont and reportedly compliant with lexapro 20 mg daily and klonopin 1 mg po five times daily prn who presented to our ER with her spouse on 11/11/17 for a psychiatric evaluation and admission. According to ER report, patient was initially taken to [facility] ED in [place] a day prior to this admission, however patient was discharged despite her psychiatrist's recommendation for hospitalization. According to ER report, patient stated that she didn't want to live anymore though denied having any suicidal thoughts. pt was seen and examined next to the nursing station, discussed with staff, notes reviewed. MINI COG 11/16/17, pt was not able to repeat three words, was not able to recall it, constructive apraxia, was not able to draw a clock. MINI COG repeated 11/17/17, pt is doing much better, was able to repeat three words, 2words to recall, was able to distribute numbers on the clock face and put clock hands on 3pm. pt presented with improved personal hygiene, combed her hair, appears less anxious. pt was able to concentrate better, pt was able to participate in interview in meaningful way. at the same time pt is repeats herself, OCD, but pt is more aware of her irrational behavior, pt has good appetite and sleep, more visible in the unit. pt said that she feels depressed, reported that her anxiety is still bad. as per staff pt is better organized. pt tolerates meds well, no side effects observed or reported, AIMS 0, no EPS. DSM 5 Diagnosis: Major Depression by history Generalized Anxiety Disorder Panic Disorder r/o hypnotic dependency/effects of intoxication Medication Change: Yes (seroquel 200mg po bid) Medical Record Reviewed: Yes Consults ordered or reviewed: medical consult appreciated Mental Status Examination - Cognitive Function Orientation: Person, Place Attention: Poor (some improvement) Concentration: Poor Association: Loose Fund of Knowledge: Poor - Mood Mood: Anxious - Affect Affect: Other (anxioiuus ) - Formal Thought Process Formal Thought Process: Loosening of associations - Suicidal Ideation Suicidal Ideation: No - Homicidal Ideation Homicidal Ideation: No Goal/Treatment Plan - Goal/Treatment Plan Need for Continued Stay: Remain at risks for inpatient hospitalization, Severe depression anxiety, Discharge may exacerbated symptoms, Severe functional impairment Progress Toward Problem(s) and Goals/Treatment Plan: Milieu/structure/supportive therapy Medical consult appreciated, see medical team note for more detailed info SW consultation for discharge plan and social issues Med management seroquel 200mg po amhs for mood stabilization and possible psychosis paxil 30mg po hs for depression and anxiety klonopin 2mg po amhsfor anxiety will be continued Family involvement Follow up on labs Will monitor closely Pt was educated about risk/benefits and alternatives of medications, coping strategies (safety plan, suicide prevention), relapse prevention, importance of follow up with psychiatrist and therapist, stay away from drugs/alcohol/smoking family meeting tomorrow Estimated Date of D/C: 11/23/17
--- NOTE | 2017-11-21 15:09 | PN ---
DATE: 11/21/2017 SUBJECTIVE: The patient was seen in the dayroom, then the patient was examined in room 519, bed 2. The patient ambulated without assistance. The patient appears to be still preoccupied about her clothes at home and even on this floor. The patient appeared to be anxious, but no suicidal or homicidal ideation was noted. The patient ambulated without assistance. The patient denies having any diarrhea for more than 24-48 hours. PHYSICAL EXAMINATION: VITAL SIGNS: T-max 97.8, pulse 80, blood pressure 114/64, respirations 18, O2 sat not documented. HEENT: Head examination normocephalic, atraumatic. HEENT examination shows pink conjunctivae. Anicteric sclerae. No oropharyngeal lesion. Positive facial hirsutism noted. No neck rigidity. CHEST: Kyphosis. LUNGS: Shows no rales, crackles or wheezing. CARDIOVASCULAR: S1 and S2. Regular rhythm. ABDOMEN: Soft, totally nontender. No guarding. No rigidity. No rebound tenderness. No hepatosplenomegaly noted. GENITALIA: Female. RECTAL: Deferred. EXTREMITY: Shows no pitting edema, no calf tenderness, no Homans' sign. NEUROLOGIC: The patient is alert, awake, responsive. Follows command. Moves upper and lower extremity without assistance. Gait examination is independent. VASCULAR: Palpable pulses. MUSCULOSKELETAL: Shows a body mass index of 28. DIAGNOSTICS: From 11/20/2017 was reviewed. WBC 5.9, hemoglobin and hematocrit 12 and 37, platelets 184. Sodium 139, potassium 4.2, chloride 101, CO2 of 31, anion gap 11, BUN 18, creatinine 0.8, GFR greater than 60, glucose 86, calcium 9.4. LFTs are all normalized now. IMPRESSION AND PLAN: 1. Acute exacerbation of anxiety and depression. 2. Generalized anxiety disorder with panic disorder. 3. Diarrhea (resolved). 4. Major depression with generalized anxiety disorder and panic disorder. 5. History of hypertension. 6. Severe hyperlipidemia and hypertriglyceridemia. 7. Transient reactive leukocytosis. 8. Transient transaminitis (resolved). 9. Hypovitaminosis D. 10. Severe hypercholesterolemia with elevated LDL and hypertriglyceridemia. 11. Microscopic hematuria, pyuria, bacteriuria. Plan at this time, the patient is to be continued on the following medications, 1. Drisdol 50,000 weekly. 2. Klonopin 1 mg twice a day and Klonopin 2 mg at bedtime. 3. Lipitor is resumed as lower dose of 40 mg daily. 4. Lovaza 2 g twice a day. 5. Norvasc 2.5 mg daily. 6. Paxil 40 mg at bedtime. 7. Protonix 40 mg daily. 8. Seroquel 150 mg a.m. at bedtime. 9. Tylenol 650 q. 6 p.r.n. At this time, the patient is as mentioned yesterday's note, the patient is medically stable for discharge. The patient's further discharge management and disposition will be as per the recommendation of the Psychiatry. Dictated and electronically signed, not read. Massimo Khan MD
[2017-11-21] MEDS: Ergocalciferol 50,000 Intl Units Cap PO SCH (22:01)
[2017-11-22 07:33] VITALS: BP 121/62; PULSE 81; TEMP 97.8
[2017-11-22] MEDS: Omega-3-Acid Ethyl Esters 1 GM Cap PO SCH (09:12)
[2017-11-22] MEDS: Pantoprazole 40 mg EC Tab PO SCH (09:14)
--- NOTE | 2017-11-22 17:06 | PCM.PYCHDC ---
Mental Status Examination - Mental Status Examination Orientation: Person, Place, Situation, Time Memory: Impaired (but much improved) Mood: Neutral Affect: Constricted (but reactive, mood congruent) Speech: Appropriate Attention: Poor (but much improved) Concentration: Poor (with much improvement) Association: WNL Fund of Knowledge: WNL Formal Thought Process: Circumstantial Description of patient's judgement and insight: Pt has improved insight into mental and medical illness, pt was compliant with medications and unit rules and regulations, pt was going to groups, was calm, cooperative, socially appropriate, no behavioral incidents, no agitation, no aggression. Psychotic Thoughts and Behaviors: Pt denied v/a/t hallucinations, denied paranoid ideation, pt does not appear to be psychotic, and thought process is goal directed. at times pt could be repetitive, but overall much improved. Suicidal Ideation: No Current Homicidal Ideation?: No Plan: pt adamantly denied thoughts of harming self or others denied intent or plan. Discharge Summary - Discharge Note Reason for Hospitalization: worsening of anxiety, OCD Psychiatric History (includes Medical, Family, Personal Hx): anxiety and depression Laboratory Data: 11/20/17 07:30 11/20/17 07:30 Lab Results 11/20/17 07:30: Sodium 139, Potassium 4.2, Chloride 101, Carbon Dioxide 31, Anion Gap 11, BUN 18, Creatinine 0.8, Est GFR ( Amer) > 60, Est GFR (Non- Af Amer) > 60, Random Glucose 86, Calcium 9.4, Total Bilirubin 0.4, Direct Bilirubin 0.2, AST 26, ALT 50, Alkaline Phosphatase 49, Total Protein 6.0, Albumin 3.4, Globulin 2.7, Albumin/Globulin Ratio 1.2 11/20/17 07:30: WBC 5.9 D, RBC 3.86, Hgb 12.0 D, Hct 37.5, MCV 97.2, MCH 31.1 , MCHC 32.0, RDW 13.4, Plt Count 184, MPV 10.1, Gran % 49.9 L, Lymph % (Auto) 36.0 H, Trimble % (Auto) 11.3 H, Eos % (Auto) 2.5, Baso % (Auto) 0.3, Gran # 2.94, Lymph # (Auto) 2.1, Trimble # (Auto) 0.7 H, Eos # (Auto) 0.2, Baso # (Auto) 0.02 11/19/17 08:00: Sodium 137, Potassium 3.7, Chloride 98, Carbon Dioxide 31, Anion Gap 13, BUN 22 H, Creatinine 0.8, Est GFR ( Amer) > 60, Est GFR ( Non-Af Amer) > 60, Random Glucose 112 H, Calcium 9.6, Total Bilirubin 0.7, Direct Bilirubin 0.3, AST 48 H D, ALT 69 H, Alkaline Phosphatase 62, Total Protein 7.4, Albumin 4.2, Globulin 3.2, Albumin/Globulin Ratio 1.3 11/19/17 08:00: WBC 12.8 H D, RBC 4.56, Hgb 14.4, Hct 44.2, MCV 96.9, MCH 31.6, MCHC 32.6, RDW 13.5, Plt Count 257, MPV 10.4, Gran % 64.9, Lymph % (Auto) 28.1, Trimble % (Auto) 5.8, Eos % (Auto) 1.0 L, Baso % (Auto) 0.2, Gran # 8.28 H, Lymph # (Auto) 3.6 H, Trimble # (Auto) 0.7 H, Eos # (Auto) 0.1, Baso # (Auto) 0.02 11/14/17 07:45: Free T4 1.02, Thyroxine (T4) 8.0, TSH 3rd Generation 0.77 11/14/17 07:45: 25-OH Vitamin D Total 21.1 L 11/13/17 22:00: Urine Color Light yellow, Urine Appearance Clear, Urine pH 6.0, Ur Specific [place] 1.015, Urine Protein Negative, Urine Glucose (UA) Negative, Urine Ketones Negative, Urine Blood Small H, Urine Nitrate Negative, Urine Bilirubin Negative, Urine Urobilinogen 0.2, Ur Leukocyte Esterase Trace H, Urine RBC 2 - 5, Urine WBC 2 - 5, Ur Epithelial Cells 0 - 2, Urine Bacteria Mod , Urine Other Mucus 11/12/17 07:30: RPR Nonreactive 11/12/17 07:30: Triglycerides 227 H, Cholesterol 305 H, LDL Cholesterol Direct 181 H, HDL Cholesterol 51 11/11/17 16:00: Urine Opiates Screen Negative, Urine Methadone Screen Negative, Ur Barbiturates Screen Negative, Ur Phencyclidine Scrn Negative, Ur Amphetamines Screen Negative, U Benzodiazepines Scrn Positive, U Oth Cocaine Metabols Negative, U Cannabinoids Screen Negative 11/11/17 16:00: Urine Color Yellow, Urine Appearance Sl cloudy, Urine pH 6.0, Ur Specific [place] >= 1.030, Urine Protein Negative, Urine Glucose (UA) Negative, Urine Ketones Trace H, Urine Blood Moderate H, Urine Nitrate Negative , Urine Bilirubin Negative, Urine Urobilinogen 0.2, Ur Leukocyte Esterase Small H, Urine RBC 1 - 3, Urine WBC 5 - 10, Ur Epithelial Cells 10 - 12, Calcium Oxalate Crystal Few, Urine Bacteria Few 11/11/17 15:15: Alcohol, Quantitative < 10 11/11/17 15:15: Sodium 143, Potassium 3.6, Chloride 102, Carbon Dioxide 34 H, Anion Gap 11, BUN 16, Creatinine 0.8, Est GFR ( Amer) > 60, Est GFR (Non- Af Amer) > 60, Random Glucose 97, Calcium 9.6, Total Bilirubin 0.4, AST 23, ALT 27, Alkaline Phosphatase 49, Total Protein 6.9, Albumin 3.8, Globulin 3.0, Albumin/Globulin Ratio 1.3 11/11/17 15:15: WBC 7.8, RBC 4.19, Hgb 13.4, Hct 41.0, MCV 97.9, MCH 32.0, MCHC 32.7, RDW 13.1, Plt Count 224, MPV 10.4 Vital Signs Temp Pulse Resp BP Pulse Ox 11/22/17 09:11 121/62 11/22/17 07:32 97.8 F 81 20 121/62 11/21/17 09:37 114/64 11/21/17 07:00 98.7 F 84 20 114/64 11/20/17 09:55 119/60 11/20/17 07:23 97.8 F 80 18 119/60 11/19/17 16:00 81 117/48 L 11/19/17 09:18 104/63 11/19/17 07:37 98.0 F 80 20 104/63 11/18/17 16:47 76 120/71 11/18/17 07:46 98.2 F 84 20 103/60 11/18/17 07:04 103/66 11/17/17 16:00 64 127/73 11/17/17 08:30 148/81 11/17/17 07:30 98.2 F 106 H 20 148/81 11/16/17 16:00 64 101/57 L 11/16/17 09:03 103/72 11/16/17 07:43 97.8 F 79 20 103/74 11/15/17 16:00 75 130/62 11/15/17 09:01 106/60 11/14/17 16:00 68 128/61 11/14/17 09:06 119/83 11/14/17 07:47 98.1 F 87 20 119/83 11/13/17 16:39 74 126/80 11/13/17 07:50 131/77 11/13/17 07:00 97.3 F L 84 20 131/77 11/12/17 16:56 67 118/59 L 11/12/17 09:24 107/71 11/12/17 06:51 97.6 F 76 18 144/78 11/11/17 17:00 72 16 122/82 99 11/11/17 12:46 97.9 F 71 16 128/77 97 Consultations:: List each consultation separately and include: 1. Reason for request. 2. Findings. 3. Follow-up Consultations: medical consult appreciated see notes for more detailed info Summary of Hospital Course include:: 1. Description of specific treatment plan utilized for patients during their course of treatmen. 2. Summarize the time- course for resolution of acute symptoms and/or regressed behaviors. 3. Describe issues identified and worked on during hospitalization. 4. Describe medication utilized. 5. Describe medical problems identified and treated. 6. Reassessment of suicide risk Summary of Hospital Course: Patient is a 62 year old female with a history of depression and anxiety (likely MANDY and Panic Disorder), no history of prior psychiatric admissions or SA, in psychiatric treatment with Dr. Dumont and reportedly compliant with lexapro 20 mg daily and klonopin 1 mg po five times daily prn who presented to our ER with her spouse on 11/11/17 for a psychiatric evaluation and admission. According to ER report, patient was initially taken to [facility] ED in [place] a day prior to this admission, however patient was discharged despite her psychiatrist's recommendation for hospitalization. According to ER report, patient stated that she didn't want to live anymore though denied having any suicidal thoughts. initially pt presented to be disorganized with severe OCD symptoms, pt also was very confused, was repeating her statements again and again, this automobile service writer had impression that pt might be mildly delirious: MINI COG 11/16/17, pt was not able to repeat three words, was not able to recall it, constructive apraxia, was not able to draw a clock. MINI COG repeated 11/17/17, pt is doing much better, was able to repeat three words, 2words to recall, was able to distribute numbers on the clock face and put clock hands on 3pm. over the course of this hospitalization pt was stabilized of the following meds: seroquel 200mg po amhs for mood stabilization and possible psychosis paxil 30mg po hs for depression and anxiety klonopin 2mg po amhsfor anxiety will be continued pt tolerates meds well, no side effects observed or reported, AIMS 0, no EPS. pt improved significantly, pt presented with improved personal hygiene, pt was able to concentrate better, pt was able to participate in interview in meaningful way pt is more aware of her irrational behavior, pt has good appetite and sleep, more visible in the unit. as per staff pt is better organized. family meeting took place today with pt's , all questions answered, pt's is willing to accept pt back home, reported that now pt looks ready for discharge. was appreciative, see notes for more detailed information. Discharge took more than 35min. At the time of the discharge pt denied been depressed, denied thoughts of harming self or others, denied psychotic symptoms, and pt does not appeared to be psychotic, denied been anxious, pt is not in imminent danger to self or others, will be following up at 's office, information about follow up appointment, time and address provided to the pt, it is patient responsibility to follow up with outpatient clinic, PMD as well as specialists (see SW note for more detailed information). In case pt will need to obtain results of studies pending at discharge pt was provided with contact information of Psychiatric Inpatient unit [phone] as well as Medical Record Department [phone]. pt does not use any drugs, does not smoke. pt was provided with prescriptions for all of medications (please see medication reconciliation form) Pt was educated about safety plan in case of worsening of symptoms or in case of suicidal or homicidal ideation call 911 or go to the nearest ER, also was educated to take meds as prescribed and stay away from drugs, pt verbalized understanding. - Diagnosis (1) OCD (obsessive compulsive disorder) Status: Chronic Priority: High (2) Generalized anxiety disorder Status: Chronic Priority: High (3) Major depression Status: Chronic Priority: High - Final Diagnosis (DSM 5) Condition upon Discharge: GOOD Disposition: HOME/ ROUTINE Follow-up Treatment Plan: At the time of the discharge pt denied been depressed, denied thoughts of harming self or others, denied psychotic symptoms, and pt does not appeared to be psychotic, denied been anxious, pt is not in imminent danger to self or others, will be following up at 's office, information about follow up appointment, time and address provided to the pt, it is patient responsibility to follow up with outpatient clinic, PMD as well as specialists (see SW note for more detailed information). In case pt will need to obtain results of studies pending at discharge pt was provided with contact information of Psychiatric Inpatient unit [phone] as well as Medical Record Department [phone]. pt does not use any drugs, does not smoke. pt was provided with prescriptions for all of medications (please see medication reconciliation form) Pt was educated about safety plan in case of worsening of symptoms or in case of suicidal or homicidal ideation call 911 or go to the nearest ER, also was educated to take meds as prescribed and stay away from drugs, pt verbalized understanding. Prescriptions/Medication Reconciliation: amLODIPine [Norvasc] 2.5 mg PO DAILY #7 tab Atorvastatin [Lipitor] 40 mg PO DIN #7 tab clonazePAM [Klonopin] 1 mg PO BID #30 tab clonazePAM [Klonopin] 2 mg PO HS #14 tab Ergocalciferol [Drisdol 50,000 Intl Units Cap] 1 cap PO QD7 #2 cap [id number] Ethyl Esters 1 GM [Lovaza] 2 gm PO BID #14 sgl Pantoprazole [Protonix EC Tab] 40 mg PO 0600,1600 #14 ect Paroxetine HCl [Paxil] 40 mg PO HS #14 tablet Quetiapine Fumarate [Seroquel] 200 mg PO AMHS #30 tablet - Smoking Cessation Smoking Cessation Medication prescribed: No Reason for not providing: pt does not smoke - Antipsychotic Medications Pt discharged on 2 or more routine antipsychotic medications: No
--- NOTE | 2017-11-23 00:03 | PN ---
DATE: 11/22/2017 SUBJECTIVE: The patient was seen in the dayroom, then patient was seen and examined in the dining room with the assistance of the PCP. Patient is ambulating independently without any distress. Overnight nurse's notes were reviewed. Patient is still preoccupied about her clothing and patient appears to be anxious, worried about her clothing issues. Patient denies any chest pain, denies any shortness of breath, denies any nausea, denies any vomiting, denies any diarrhea today. Patient slept well according to the nurses' notes; overnight, patient slept well without any adverse events. PHYSICAL EXAMINATION: VITAL SIGNS: T-max 97.8 to 98.7, pulse 81 to 84, blood pressure 121/62, respirations 20. HEENT: Head examination, normocephalic and atraumatic. HEENT examination shows pinkish conjunctivae. Anicteric sclerae. No oropharyngeal lesion. NECK: No neck rigidity. CHEST: Kyphosis. LUNGS: Show no rales, crackles or wheezing. CARDIOVASCULAR: S1, S2. Regular rhythm. No audible murmur, gallop or rub. ABDOMEN: Soft. Positive bowel sounds. GENITALIA: Female. RECTAL: Deferred. EXTREMITIES: Show no pitting edema, no calf tenderness, no Homans sign. NEUROLOGIC: Patient is alert, awake, oriented. She is able to move upper and lower extremities without assistance. Gait examination is independent. VASCULAR: Palpable pulses. Plantars are downward. DTRs are 2+. No gross neurological deficit noted. PSYCHIATRIC: Positive for anxiety and some preoccupation of ideas. DIAGNOSTICS: None from today. Patient is requesting to be discharged. IMPRESSION AND PLAN: 1. Anxiety disorder. 2. Acute exacerbation of depression. 3. Obsessive-compulsive disorder. 4. Generalized anxiety disorder. 5. Major depression. 6. Transient leukocytosis, probably reactive. 7. Hypercholesteremia, hypertriglyceridemia with elevated LDL. 8. Hypovitaminosis D. 9. Microscopic hematuria. 10. Pyuria, bacteriuria. Plan at this time, patient is to be continued on Psychiatry floor until the patient is further cleared by Psychiatry for discharge. Patient at present is medically stable for discharge. CURRENT MEDICATIONS: 1. Drisdol 50,000 units weekly. 2. Klonopin 1 mg twice a day. 3. Klonopin 2 mg at bedtime. 4. Lipitor 40 mg daily. 5. Lovaza 2 g twice a day. 6. Norvasc 2.5 mg daily. 7. Paxil 40 mg daily. 8. Protonix 40 mg daily. 9. Seroquel 200 mg a.m. and at bedtime. At present, patient is medically cleared for discharge. Patient's further discharge decision will be as per the Psychiatry. Dictated and electronically signed, not read. Massimo Khan MD
== END 2017-11-22 13:04 | disposition home or self-care (01) | DRG 881 ==
LOC: ED 12:36 → PSYC 15:56
PROVIDERS: ADMIT Psychiatry & Neurology Psychiatry; ATTEND Psychiatry & Neurology Psychiatry
DX: F32.9 Major depressive disorder, single episode, unspecified (principal); F03.90 Unspecified dementia, unspecified severity, without behavioral disturbance, psychotic disturbance, mood disturbance, and anxiety; F13.20 Sedative, hypnotic or anxiolytic dependence, uncomplicated; N39.0 Urinary tract infection, site not specified; F20.9 Schizophrenia, unspecified; D72.828 Other elevated white blood cell count; F41.1 Generalized anxiety disorder; E55.9 Vitamin D deficiency, unspecified; E78.00 Pure hypercholesterolemia, unspecified; E78.1 Pure hyperglyceridemia; E78.5 Hyperlipidemia, unspecified; F31.9 Bipolar disorder, unspecified; F41.0 Panic disorder [episodic paroxysmal anxiety]; F42.9 Obsessive-compulsive disorder, unspecified; I10 Essential (primary) hypertension; R31.29 Other microscopic hematuria; Z79.899 Other long term (current) drug therapy; Z90.49 Acquired absence of other specified parts of digestive tract; R40.2412 Glasgow coma scale score 13-15, at arrival to emergency department; Z87.81 Personal history of (healed) traumatic fracture; F22 Delusional disorders; R41.89 Other symptoms and signs involving cognitive functions and awareness; L68.0 Hirsutism; M40.204 Unspecified kyphosis, thoracic region

== ENCOUNTER 2018-08-08 12:16 | Inpatient (IN) | payer MEDICARE, BC ==
[2018-08-08 12:50] VITALS: BMI 22.4
--- NOTE | 2018-08-08 13:18 | ED PDOC ---
Arrival/HPI - General Chief Complaint: Psychiatric Evaluation Time Seen by Provider: 08/08/18 12:48 Historian: Patient, Spouse - History of Present Illness Narrative History of Present Illness (Text): 08/08/18 13:15 62 year old female, whose past medical history includes anxiety and depression, presents to the emergency department accompanied by her , complaining of anxiety. As per , patient is also experiencing skin burning, seeing spots in her vision, lumps in her mouth, for the past 4 months. isn't sure if all these complaints are due to ongoing anxiety or if these are symptoms due to her psychiatric medication, prompting their visit to the emergency department for further evaluation. Patient denies fevers, chills, headache, dizziness, chest pain, shortness of breath, dyspnea on exertion, cough, abdominal pain, nausea, vomiting, diarrhea, back pain, neck pain, or any other complaint. Time/Duration: Other (chronic) Symptom Onset: Gradual Symptom Course: Unchanged Activities at Onset: Light Context: Home Past Medical History - Provider Review Nursing Documentation Reviewed: Yes - Infectious Disease Hx of Infectious Diseases: None - Tetanus Immunization Tetanus Immunization: Unknown - Cardiac Hx Cardiac Disorders: Yes Hx Hypertension: Yes - Pulmonary Hx Respiratory Disorders: No - Neurological Hx Neurological Disorder: No - HEENT Hx HEENT Disorder: No - Renal Hx Renal Disorder: No - Endocrine/Metabolic Hx Endocrine Disorders: No - Hematological/Oncological Hx Blood Disorders: No - Integumentary Hx Dermatological Disorder: No - Musculoskeletal/Rheumatological Hx Musculoskeletal Disorders: Yes Hx Fractures: Yes - Gastrointestinal Hx Gastrointestinal Disorders: Yes Hx Gall Bladder Disease: Yes - Genitourinary/Gynecological Hx Genitourinary Disorders: No - Psychiatric Hx Psychophysiologic Disorder: Yes Hx Anxiety: Yes Hx Depression: Yes Hx Substance Use: No - Surgical History Hx Cholecystectomy: Yes Hx Orthopedic Surgery: Yes (L WRIST) - Anesthesia Hx Anesthesia: Yes Hx Anesthesia Reactions: No Family/Social History - Physician Review Nursing Documentation Reviewed: Yes Family/Social History: No Known Family HX Smoking Status: Former Smoker Hx Alcohol Use: No Hx Substance Use: No Allergies/Home Meds Allergies/Adverse Reactions: Allergies No Known Allergies Allergy (Verified 02/23/17 15:53) Home Medications: Home Meds Medication Instructions Recorded Confirmed ALPRAZolam [Xanax] 1 mg PO QID 08/08/18 08/08/18 Atorvastatin [Lipitor] 40 mg PO DAILY 08/08/18 08/08/18 Biotin 5 mg PO BID 08/08/18 08/08/18 Calcium Carb, Citrate/Vit D3 2 each PO DAILY 08/08/18 08/08/18 [Calcium + D3 ER Tablet] Escitalopram [Lexapro] 20 mg PO DAILY 08/08/18 08/08/18 [id number] Ethyl Esters 1 GM 1 gm PO BID 08/08/18 08/08/18 [Lovaza] Pantoprazole Sodium [Protonix] 40 mg PO DAILY 08/08/18 08/08/18 amLODIPine [Norvasc] 2.5 mg PO DAILY 08/08/18 08/08/18 Review of Systems - Physician Review All systems were reviewed & negative as marked: Yes - Review of Systems Constitutional: Normal. absent: Fevers Eyes: Vision Changes (seeing "spots" in vision- only when she looks at herself ). absent: Photophobia, Eye Pain, Other ENT: Normal Respiratory: absent: SOB, Cough, Sputum, Wheezing Cardiovascular: absent: Chest Pain, Palpitations, Edema Gastrointestinal: absent: Abdominal Pain, Stool Changes, Constipation, Diarrhea, Nausea, Vomiting, Appetite Changes, Hematochezia Musculoskeletal: absent: Back Pain, Neck Pain Skin: Other (burning sensation, diffuse). absent: Rash, Skin Lesions, Laceration, Abscess Neurological: absent: Headache, Dizziness Psychiatric: Anxiety. absent: Depression Physical Exam Vital Signs Reviewed: Yes Temperature: Afebrile Blood Pressure: Normal Pulse: Regular Respiratory Rate: Normal Appearance: Positive for: Well-Appearing, Non-Toxic, Comfortable Pain Distress: None Mental Status: Positive for: Alert and Oriented X 3 - Systems Exam Head: Present: Atraumatic, Normocephalic Pupils: Present: PERRL Extroacular Muscles: Present: EOMI Conjunctiva: Present: Normal Ears: Present: Normal, NORMAL TM Mouth: Present: Moist Mucous Membranes Pharnyx: Present: Normal. No: ERYTHEMA, EXUDATE, TONSILS ENLARGED Nose (External): Present: Atraumatic. No: Abrasion, Contusion, Laceration Nose (Internal): Present: Normal Inspection, No Active Bleeding. No: Rhinorrhea, Septal Hematoma Neck: Present: Normal Range of Motion. No: Meningeal Signs Respiratory/Chest: Present: Clear to Auscultation, Good Air Exchange. No: Respiratory Distress, Accessory Muscle Use Cardiovascular: Present: Regular Rate and Rhythm, Normal S1, S2. No: Murmurs Abdomen: No: Tenderness, Distention, Peritoneal Signs Back: Present: Normal Inspection Upper Extremity: Present: Normal Inspection. No: Cyanosis, Edema Lower Extremity: Present: Normal Inspection. No: Edema Neurological: Present: GCS=15, CN II-XII Intact, Speech Normal Skin: Present: Warm, Dry, Normal Color. No: Rashes Psychiatric: Present: Alert, Oriented x 3, Anxious Medical Decision Making ED Course and Treatment: 08/08/18 13:16 Impression: 62 year old female presents to the emergency department complaining of anxiety. She also notes seeing spots. 20/20 vision with glasses b/l. EOMI. PERRLA. No fall or trauma or rash. No SI or HI. Given pt has no vision deficits and is only seeing spots when looking at her skin and at herself likely psych related. No ulcerations or rashes noted intra-orally. Normal Neuro exam. Plan: -- Head CT -- EKG -- Labs -- Urine Culture -- Urinalysis w/ micro -- Reassess and disposition Prior Visits: Notes and results from previous visits were reviewed. Progress Notes: 08/08/18 14:[address] reviewed, shows: IMPRESSION: No acute intracranial abnormality. Mild chronic microangiopathic changes and mild age-related global parenchymal volume loss. 08/08/18 14:39 EKG reviewed, shows: NSR at 74bpm. no stemi. 08/08/18 16:44 Imaging, labs unremarkable except UTI Normal neuro exam. will rX. No sepsis indication. Medically clear Seen by PES: admitted to Dr. Robledo's service - Lab Interpretations I have reviewed the lab results: Yes - EKG Interpretation Interpreted by ED Physician: Yes Type: 12 lead EKG - Scribe Statement The provider has reviewed the documentation as recorded by the Roxie Tirado Provider Scribe Attestation: All medical record entries made by the Scribe were at my direction and personally dictated by me. I have reviewed the chart and agree that the record accurately reflects my personal performance of the history, physical exam, medical decision making, and the department course for this patient. I have also personally directed, reviewed, and agree with the discharge instructions and disposition. Disposition/Present on Arrival - Present on Arrival Any Indicators Present on Arrival: No History of DVT/PE: No History of Uncontrolled Diabetes: No Urinary Catheter: No History of Decub. Ulcer: No History Surgical Site Infection Following: None - Disposition Have Diagnosis and Disposition been Completed?: Yes Diagnosis: Anxiety Disposition Time: 16:44 Patient Problems: Current Active Problems Problem Status Onset Anxiety Acute Condition: GOOD
[2018-08-08 13:24] LABS: HEMOGLOBIN 14.2 g/dL (12.0-16.0); RBC 4.52 10^6/uL (3.5-6.1)
[2018-08-08 13:25] LABS: BASO # 0.02 K/mm3 (0.0-2.0); BASO % 0.2 % (0.0-3.0); EOS # 0.1 (0.0-0.7); EOS % 0.9 % (1.5-5.0); GRAN # 5.73 (1.4-6.5); GRAN % 63.4 % (50.0-68.0); LYMPH # 2.3 (1.2-3.4); LYMPH % 25.1 % (22.0-35.0); MEAN CORPUSCULAR HEMOGLOBIN 31.4 pg (25.0-35.0); MEAN CORPUSCULAR HGB CONC 32.1 g/dl (31.0-37.0); MEAN PLATELET VOLUME 10.5 fl (7.0-11.0); MONO # 0.9 (0.1-0.6); MONO % 10.4 % (1.0-6.0); RED CELL DISTRIBUTION WIDTH 13.5 % (11.5-14.5)
[2018-08-08 13:27] LABS: PH,URINE 5.5 (4.7-8.0); URINE BILIRUBIN NEGATIVE (NEGATIVE); URINE BLOOD LARGE (NEGATIVE); URINE COLOR YELLOW (YELLOW); URINE GLUCOSE (UA) NEGATIVE (NEGATIVE); URINE LEUKOCYTE ESTERASE MODERATE Leu/uL (NEGATIVE); URINE PROTEIN TRACE mg/dL (<30 mg/dL); URINE UROBILINOGEN 0.2 E.U./dL (<1 E.U./dL)
[2018-08-08 13:28] LABS: URINE APPEARANCE SL CLOUDY (CLEAR)
[2018-08-08 13:31] LABS: URINE BACTERIA SMALL (NEG); URINE RBC 0 - 2 /hpf (0-2); URINE WBC 25 - 30 /hpf (0-6)
[2018-08-08 13:50] LABS: ACETAMINOPHEN < 10.0 ug/ml (10.0-20.0); SALICYLATE < 1 mg/dL (2.0-20.0)
[2018-08-08 13:52] LABS: ALB/GLOB RATIO 1.3 (1.1-1.8); ALBUMIN 4.8 g/dL (3.0-4.8); ALT/SGPT 44 U/L (7-56); AST/SGOT 35 U/L (14-36); BLOOD UREA NITROGEN 15 mg/dL (7-21); CALCIUM 10.3 mg/dL (8.4-10.5); GFR NON-AFRICAN AMERICAN > 60
--- NOTE | 2018-08-08 14:23 | CT ---
Date of service: 08/08/2018 PROCEDURE: CT HEAD WITHOUT CONTRAST. HISTORY: psych COMPARISON: None available. TECHNIQUE: Axial computed tomography images were obtained through the head/brain without intravenous contrast. Radiation dose: Total exam DLP = 896.44 mGy-cm. This CT exam was performed using one or more of the following dose reduction techniques: Automated exposure control, adjustment of the mA and/or kV according to patient size, and/or use of iterative reconstruction technique. FINDINGS: HEMORRHAGE: No intracranial hemorrhage. BRAIN: There are mild chronic microangiopathic changes. There is no mass, mass effect or abnormal extra-axial fluid collection. There is no territorial infarction. The midline sagittal structures are normal.There are coarse atherosclerotic calcifications in the cavernous carotid arteries. VENTRICLES: There is mild age-related global parenchymal volume loss and proportionate enlargement of the ventricles and cortical sulci. CALVARIUM: There is no calvarial fracture or extracranial soft tissue swelling. PARANASAL SINUSES: Predominantly clear. MASTOID AIR CELLS: Predominantly clear. OTHER FINDINGS: None. IMPRESSION: No acute intracranial abnormality. Mild chronic microangiopathic changes and mild age-related global parenchymal volume loss.
[2018-08-08 14:32] VITALS: O2SAT 98
[2018-08-08 14:43] LABS: BARBITURATES, UR NEGATIVE (NEGATIVE); BENZODIAZEPINES, UR POSITIVE (NEGATIVE)
[2018-08-08 14:44] LABS: OPIATES, UR NEGATIVE (NEGATIVE); PHENCYCLIDINE, UR NEGATIVE (NEGATIVE)
[2018-08-08] MEDS ORDERED: cefTRIAXone 1 gm 1 GM/100 ML BAG IVPB ONE (15:00)
--- NOTE | 2018-08-08 18:32 | RAD ---
Date of service: 08/08/2018 HISTORY: per psych COMPARISON: 11/11/2017 FINDINGS: LUNGS: No active pulmonary disease. PLEURA: No significant pleural effusion identified, no pneumothorax apparent. CARDIOVASCULAR: No atherosclerotic calcification present Normal. OSSEOUS STRUCTURES: No significant abnormalities. VISUALIZED UPPER ABDOMEN: Normal. OTHER FINDINGS: None. IMPRESSION: No active disease. No significant interval change compared to the prior examination(s).
--- NOTE | 2018-08-08 18:43 | CARD ---
APPROVED REPORT Date of service: 08/08/2018 EKG Measurement Heart [id number] <Conclusion> Normal sinus rhythm Junctional ST depression, probably normal Base line artefact, please repeat
[2018-08-08] MEDS ORDERED: Magnesium Hydroxide Susp 30 ml UD PO PRN (21:19)
[2018-08-08] MEDS ORDERED: Alum-Mag Hydrox-Simethicone Susp (30 mL) PO PRN (21:19)
[2018-08-08] MEDS: Ergocalciferol 50,000 Intl Units Cap PO SCH (22:34)
--- NOTE | 2018-08-08 23:13 | PCM.BM ---
<Chuyita Sharma - Last Filed: 08/08/18 23:11> Treatment Plan Problems - Problems identified on initial assessmt Anxiety Date Initiated: 08/08/18 Time Initiated: 23:12 Assessment reference: NA Status: Active Altered thought process Date Initiated: 08/08/18 Time Initiated: 23:12 Assessment reference: NA Status: Active Tactile Hallucinations Date Initiated: 08/08/18 Time Initiated: 23:13 Assessment reference: HP, PE, SW, AT, NA, Other Status: Active Treatment assets and liabiliti Patient Assests: good support system, negotiates basic needs, cognitively intact, cooperative, self-reliant <Mary Mccollum - Last Filed: 08/09/18 10:32> Family Contact Family involvement: Family/SO is involved Family contact: Patient agrees to contact <Meena Carvalho - Last Filed: 08/09/18 15:08> - Diagnosis (1) Generalized anxiety disorder Status: Chronic Interventions: 08/09/18 15:07 Psychoeducation Psychopharmacology/adjustment of medications as needed/ monitoring possible side effects Evaluate pt on daily basis Discussion of importance of being compliant with medications and follow up appointments Suicide and homicide risk assessment and prevention, coping strategies, safety plan Reduction of symptoms Relaxation techniques and breathing exercises Improve functional status Family involvement Cognitive behavioral therapy as outpatient (2) Major depression Status: Chronic Interventions: 08/09/18 15:07 Psychoeducation Psychopharmacology/adjustment of medications as needed/ monitoring possible side effects Evaluate pt on daily basis Compliance with medications and follow up appointments Suicide and homicide risk assessment and prevention Relapse prevention Reduction of symptoms Improve functional status Family involvement As outpatient: cognitive behavioral therapy possible ECT (3) OCD (obsessive compulsive disorder) Status: Chronic Interventions: 08/09/18 15:07 Psychoeducation Psychopharmacology/adjustment of medications as needed/ monitoring possible side effects Evaluate pt on daily basis Discussion of importance of being compliant with medications and follow up appointments Suicide and homicide risk assessment and prevention, coping strategies, safety plan Reduction of symptoms Relaxation techniques and breathing exercises Improve functional status Family involvement Cognitive behavioral therapy as outpatient
[2018-08-09] MEDS: Pantoprazole 40 mg EC Tab PO SCH ×2 (06:19→17:12)
[2018-08-09 07:00] LABS: GLUCOSE,FASTING 93 mg/dL (65-110); HDL CHOLESTEROL 56 mg/dL (29-60)
[2018-08-09 07:11] LABS: LDL CHOLESTEROL 79 mg/dL (0-129)
[2018-08-09 07:57] LABS: FREE T4 1.46 ng/dL (0.78-2.19); T4 10.4 ug/dL (5.5-11.0)
[2018-08-09] MEDS: Omega-3-Acid Ethyl Esters 1 GM Cap PO SCH ×2 (08:30→17:11)
[2018-08-09 09:03] LABS: BASO # 0.01 K/mm3 (0.0-2.0); BASO % 0.1 % (0.0-3.0); EOS % 0.1 % (1.5-5.0); GRAN # 13.26 (1.4-6.5); HEMOGLOBIN 14.5 g/dL (12.0-16.0); LYMPH # 0.7 (1.2-3.4); LYMPH % 4.6 % (22.0-35.0); MEAN CELL VOLUME 96.2 fl (80.0-105.0); MEAN CORPUSCULAR HEMOGLOBIN 32.1 pg (25.0-35.0); MEAN CORPUSCULAR HGB CONC 33.3 g/dl (31.0-37.0); MONO # 0.8 (0.1-0.6); MONO % 5.2 % (1.0-6.0); PLATELET COUNT 203 10^3/uL (120.0-450.0); RBC 4.52 10^6/uL (3.5-6.1); RED CELL DISTRIBUTION WIDTH 13.3 % (11.5-14.5); WHITE BLOOD COUNT 14.7 10^3/uL (4.5-11.0)
[2018-08-09 09:36] LABS: BAND 1 % (0-2); LYMPHOCYTE 7 % (22.0-35.0); MONOCYTE 4 % (1.0-6.0); NEUTROPHIL 88 % (50.0-70.0); PLATELET ESTIMATE NORMAL (NORMAL)
--- NOTE | 2018-08-09 10:10 | CARD ---
APPROVED REPORT Date of service: 08/09/2018 EKG Measurement Heart [id number] <Conclusion> Normal sinus rhythm Normal ECG
[2018-08-09] MEDS: Amoxicillin-Clav 875-125 mg Tab PO SCH ×2 (10:36→17:12)
[2018-08-09] MEDS: Saliva Substitute 44.3 ML PO SCH ×3 (10:36→17:10)
--- NOTE | 2018-08-09 10:57 | RAD ---
Date of service: 08/09/2018 HISTORY: FEVER COMPARISON: 08/08/2018 TECHNIQUE: Chest PA and lateral FINDINGS: LUNGS: No active pulmonary disease. PLEURA: No significant pleural effusion identified. No pneumothorax apparent. CARDIOVASCULAR: Aortic calcifications Normal cardiac size. No pulmonary vascular congestion. OSSEOUS STRUCTURES: No significant abnormalities. VISUALIZED UPPER ABDOMEN: Normal. OTHER FINDINGS: None. IMPRESSION: No active disease.
--- NOTE | 2018-08-09 15:06 | PCM.PSYCH ---
Initial Psychiatric Evaluation - Initial Psychiatric Evaluation Type of Admission: Voluntary Legal Status: Capacity (pt had a capacity to sign consent for treatment) Chief Complaint (in patient's own words): "I don't know" Patient's Reaction to Hospitalization: Pt was referred by , psychiatrist for psychiatric admission due to wo rsening of anxiety, inability to function and cognitive decline. History of Present Illness and Precipitating Events: Patient is a 62 year old female with a history of depression and anxiety (likely MANDY and Panic Disorder), one prior psychiatric admissions to this facility for anxiety and depression this year, in psychiatric treatment with Dr. Dumont and reportedly compliant with medications, who presented to our ER with her spouse yesterday 08/08/18 for a psychiatric evaluation and admission as per recommendation. in ED pt presented to be depressed, mildly paranoid, guarded. pt is very familiar to this facility due to psych admission in 11/2017, pt presented with acceptable personal hygiene, poor ADLs. pt is very poor and unreliable historian, no information could be obtained from the pt, pt presented with psychomotor retardation, pt was was given only yes or no answers. Mini-cog was scored 0. medical and neurology team involved. majority information was obtained from RN report, ED documentation, . In ED pt presented with a lot of somatic complaints such as "skin burning", psoriasis, and ulcers in her mouth for the past couple of months. Consulted with Dr. Dumont, and suggested coming to the ED to get checked out to ensure everything was ok medically and psychaitrically. Not sure if these issues the pt. are having are secondary to her high levels of anxiety or a reaction to her medication, but came solely to get them checked out. as pe patient becomes fixated on something, and very repetitive, but in ED pt presented to be calm, pt's memory is getting worse and worse, but is unsure if this is secondary to her anxiety or if her "mind is starting to go". Reports compliance with medications and treatment, but sees no difference in behavior or mood in regards to drepression or anxiety. No report of suicidal behaviors or hallucinations. as per patient's pt cannot be on PAXIL or SEROQUEL as last time she was prescribed them she had blurry vision and "sagging purple skin". Patient is preoccupied and distracted with her thoughts it seems that pt wants to talk but something is stopping her. this health technical writer cannot exclude that pt also has catatonia, pt doesn't actually appear to be responding to internal stimuli. Patient heard mumbling repeatedly, patient denies perceptual disturbance when directly questioned by this provider. She seems uneasy because she's in a new environment but denies any physical discomfort or pain. PSYCHIATRIC HISTORY one previous psych admission 11/2017 Denies history of SA Patient reports being in treatment with Dr. Dumont "for many many years". med list: [id number] xanax 1mg po qid filled 06/06/18 paxil 40mg po hs filled 06/06/18 SOCIAL HISTORY as per previous record Patient was born and raised in [place]. She has been 30+ years and resides with her . She has no children. She graduated high school. 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 h/o MJA as a teenager, no alcohol issues. Patient denies any current tobacco use. discussed with ECT might be helpful. 08/09/18 08:27 08/08/18 13:10 Lab Results 08/09/18 08:47: Total T3 1.35 08/09/18 08:47: Free T3 pg/mL 3.53 08/09/18 08:27: WBC 14.7 H D, RBC 4.52, Hgb 14.5, Hct 43.5, MCV 96.2, MCH 32.1, MCHC 33.3, RDW 13.3, Plt Count 203, MPV 10.0, Gran % 90.0 H, Lymph % (Auto) 4.6 L, Dooly % (Auto) 5.2, Eos % (Auto) 0.1 L, Baso % (Auto) 0.1, Gran # 13.26 H, L ymph # (Auto) 0.7 L, Dooly # (Auto) 0.8 H, Eos # (Auto) 0.0, Baso # (Auto) 0.01, Neutrophils % (Manual) 88 H, Band Neutrophils % 1, Lymphocytes % (Manual) 7 L, Monocytes % (Manual) 4, Platelet Evaluation Normal 08/09/18 08:25: Procalcitonin < 0.05 L, Lyme Disease IgG Ab (IFA) Pending, Lyme Disease IgM Ab Pending 08/09/18 06:20: Fasting Glucose 93, Triglycerides 97, Cholesterol 154, LDL Cholesterol Direct 79, HDL Cholesterol 56 08/09/18 06:00: Free T4 1.46, Thyroxine (T4) 10.4, TSH 3rd Generation 0.29 L 08/09/18 06:00: 25-OH Vitamin D Total 28.3 L 08/09/18 06:00: Hemoglobin A1c 5.5 08/08/18 13:10: Alcohol, Quantitative < 10 08/08/18 13:10: Salicylates < 1 L, Acetaminophen < 10.0 L 08/08/18 13:10: Urine Opiates Screen Negative, Urine Methadone Screen Negative, Ur Barbiturates Screen Negative, Ur Phencyclidine Scrn Negative, Ur Amphetamines Screen Negative, U Benzodiazepines Scrn Positive H, U Oth Cocaine Metabols Negative, U Cannabinoids Screen Negative 08/08/18 13:10: Sodium 140, Potassium 4.8, Chloride 99, Carbon Dioxide 32, Anion Gap 14, BUN 15, Creatinine 0.7, Est GFR ( Amer) > 60, Est GFR (Non-Af Amer) > 60, Random Glucose 122 H, Calcium 10.3, Magnesium 2.1, Total Bilirubin 1.2, AST 35, ALT 44, Alkaline Phosphatase 69, Total Creatine Kinase 64, Total Protein 8.3, Albumin 4.8, Globulin 3.6, Albumin/Globulin Ratio 1.3 08/08/18 13:10: Urine Color Yellow, Urine Appearance Sl cloudy, Urine pH 5.5, Ur Specific Almyra >= 1.030, Urine Protein Trace H, Urine Glucose (UA) Negative, Urine Ketones Negative, Urine Blood Large H, Urine Nitrate Negative, Urine Bilirubin Negative, Urine Urobilinogen 0.2, Ur Leukocyte Esterase Moderate H, Urine RBC 0 - 2, Urine WBC 25 - 30, Ur Epithelial Cells 4 - 5, Urine Bacteria Small 08/08/18 13:10: WBC 9.0, RBC 4.52, Hgb 14.2 D, Hct 44.3, MCV 98.0, MCH 31.4, MCHC 32.1, RDW 13.5, Plt Count 245, MPV 10.5, Gran % 63.4, Lymph % (Auto) 25.1, Dooly % (Auto) 10.4 H, Eos % (Auto) 0.9 L, Baso % (Auto) 0.2, Gran # 5.73, Lymph # (Auto) 2.3, Dooly # (Auto) 0.9 H, Eos # (Auto) 0.1, Baso # (Auto) 0.02 Vital Signs Temp Pulse Pulse Pulse Resp BP Pulse Ox 08/09/18 10:53 99.9 F H 08/09/18 09:14 99.7 F H 08/09/18 08:31 144/61 08/09/18 08:28 99.9 F H 08/09/18 07:15 99.9 F H 90 20 144/61 08/08/18 23:15 69 69 18 08/08/18 18:25 98.0 F 78 18 122/78 98 08/08/18 14:31 98.0 F 74 16 141/72 98 The patient failed the outpatient lower level of care: Yes Current Medications: Active Medications Generic Name Dose Route Start Last Admin Trade Name Freq PRN Reason Stop Dose Admin Acetaminophen 650 mg 08/08/18 21:19 08/09/18 08:28 Tylenol 325mg Tab PO 650 mg Q6H PRN Administration Pain, Mild (1-3) Acetaminophen 650 mg 08/09/18 08:26 Tylenol 325mg Tab PO Q6 PRN TEMP>=99.5F Acetaminophen 650 mg 08/09/18 08:26 Tylenol 650 Mg Supp RC Q6H PRN TEMP>=99.5F Al Hydrox/Mg Hydrox/Simethicone 30 ml 08/08/18 21:19 Maalox Plus 30 Ml PO DAILY PRN Upset Stomach Amlodipine Besylate 2.5 mg 08/09/18 08:00 08/09/18 08:31 Norvasc PO 2.5 mg DAILY RONAK Administration Atorvastatin Calcium 40 mg 08/09/18 17:00 Lipitor PO DIN RONAK Docusate Sodium 100 mg 08/09/18 13:00 Colace PO TID RONAK Ergocalciferol 1 cap 08/08/18 21:30 08/08/18 22:34 Drisdol 50,000 Intl Units Cap PO 1 cap Q7D RONAK Administration Escitalopram Oxalate 20 mg 08/09/18 08:00 08/09/18 08:30 Lexapro PO 20 mg DAILY RONAK Administration Lorazepam 2 mg 08/08/18 21:19 08/09/18 08:29 Ativan PO 2 mg Q6H PRN Administration Anxiety Protocol Lorazepam 2 mg 08/08/18 21:21 Ativan IM Q6H PRN Anxiety Protocol Magnesium Hydroxide 30 ml 08/08/18 21:19 Milk Of Magnesia PO DAILY PRN Constipation [id number] Ethyl Esters 1 gm 08/09/18 08:00 08/09/18 08:30 Lovaza PO 1 gm BID RONAK Administration Pantoprazole Sodium 40 mg 08/09/18 06:00 08/09/18 06:19 Protonix Ec Tab PO 40 mg 0600,1600 RONAK Administration Risperidone 0.5 mg 08/08/18 22:00 08/08/18 22:34 Risperdal Tab PO 0.5 mg HS RONAK Administration Protocol Saliva Substitute 5 ml 08/09/18 08:00 Saliva Substitute PO TID RONAK Ziprasidone 20 mg 08/08/18 21:19 Geodon Cap PO Q6H PRN Agitation Protocol Ziprasidone 20 mg 08/08/18 21:22 Geodon Inj IM Q6 PRN Agitation Protocol Present on Admission - Present on Admission Any Indicators Present on Admission: No Review of Systems - Review of Systems Systems not reviewed;Unavailable: Acuity of Condition - Constitutional Constitutional: As Per HPI - EENT Eyes: As Per HPI Ears: As Per HPI Nose/Mouth/Throat: As Per HPI - Breasts Breasts: As Per HPI - Cardiovascular Cardiovascular: As Per HPI - Respiratory Respiratory: As Per HPI - Gastrointestinal Gastrointestinal: As Per HPI - Genitourinary Genitourinary: As Per HPI - Reproductive: Female Reproductive:Female: As Per HPI - Menstruation Menstruation: As Per HPI - Musculoskeletal Musculoskeletal: As Per HPI - Integumentary Integumentary: As Per HPI - Neurological Neurological: As Per HPI - Psychiatric Psychiatric: As Per HPI - Endocrine Endocrine: As Per HPI - Hematologic/Lymphatic Hematologic: As Per HPI Past Patient History - Past Psychiatric History Previous Treatment History: Inpatient Prior Professional Help: see HPI Prior Psychiatric Treatment: see HPI At what hospital: see HPI Duration: see HPI Nature of Treatment: see HPI Explanation of prior treatment: see HPI - PSYCHIATRIC Hx Psychophysiologic Disorder: Yes Hx Depression: Yes Hx Substance Use: No - Infectious Disease Hx of Infectious Diseases: None - Tetanus Immunizations Tetanus Immunization: Unknown - CARDIAC Hx Cardiac Disorders: Yes Hx Hypertension: Yes - PULMONARY Hx Respiratory Disorders: No - NEUROLOGICAL Hx Neurological Disorder: No - HEENT Hx HEENT Problems: No - RENAL Hx Chronic Kidney Disease: No - ENDOCRINE/METABOLIC Hx Endocrine Disorders: No - HEMATOLOGICAL/ONCOLOGICAL Hx Blood Disorders: No - INTEGUMENTARY Hx Dermatological Problems: No - MUSCULOSKELETAL/RHEUMATOLOGICAL Hx Musculoskeletal Disorders: Yes Hx Fractures: Yes - GASTROINTESTINAL Hx Gastrointestinal Disorders: Yes Hx Gall Bladder Disease: Yes - GENITOURINARY/GYNECOLOGICAL Hx Genitourinary Disorders: No - SURGICAL HISTORY Hx Cholecystectomy: Yes Hx Orthopedic Surgery: Yes (L WRIST) - ANESTHESIA Hx Anesthesia: Yes Hx Anesthesia Reactions: No - Medical/Surgical History Reviewed & confirmed: by oh Meds Allergies/Adverse Reactions: Allergies Allergy/AdvReac Type Severity Reaction Status Date / Time No Known Allergies Allergy Verified 08/08/18 21:42 Mental Status Examination - Personal Presentation Personal Presentation: Looks older than stated age - Affect Affect: Flat - Motor Activity Motor Activity: Psychomotor Retardation - Reliability in Providing Information Reliability in Providing Information: Poor, due to alteration in thoughts, Poor, due to altered mood, Poor, due to cognitve impairment - Speech Speech: Disorganized - Mood Mood: Depressed, Anxious - Formal Thought Process Formal Thought Process: Other (preoccupied) - Obsessions/Compulsions Obsessions: Yes Compulsions: Yes - Cognitive Functions Orientation: Person, Place Sensorium: Alert Attention/Concentration: Easily distracted Estimate of Intelligence: Below average Judgement: Intact, as evidence by: Insight regarding need for hospitalization - Risk Risk: Self-mutilation, Diminished functioning - Strength & Assets Inventory Strength & Assets Inventory: Family support, Cooperative - Limitations Limitations: Other (multiple medical issues) Psychiatric Physical Exam - Physical Exam Reviewed and confirmed: Emergency Department Physical Exam Results - Vital Signs Recent Vital Signs: Last Vital Signs Temp 99.9 F H 08/09/18 08:28 Pulse 90 08/09/18 07:15 Resp 20 08/09/18 07:15 BP 144/61 08/09/18 08:31 Pulse Ox 98 08/08/18 18:25 - Labs Result Diagrams: 08/09/18 08:27 08/08/18 13:10 Labs: Laboratory Results - last 24 hr 08/08/18 08/08/18 08/08/18 13:10 13:10 13:10 WBC 9.0 RBC 4.52 Hgb 14.2 D Hct 44.3 MCV 98.0 MCH 31.4 MCHC 32.1 RDW 13.5 Plt Count 245 MPV 10.5 Gran % 63.4 Lymph % (Auto) 25.1 Dooly % (Auto) 10.4 H Eos % (Auto) 0.9 L Baso % (Auto) 0.2 Gran # 5.73 Lymph # (Auto) 2.3 Dooly # (Auto) 0.9 H Eos # (Auto) 0.1 Baso # (Auto) 0.02 Sodium 140 Potassium 4.8 Chloride 99 Carbon Dioxide 32 Anion Gap 14 BUN 15 Creatinine 0.7 Est GFR ( Amer) > 60 Est GFR (Non-Af Amer) > 60 Random Glucose 122 H Fasting Glucose Calcium 10.3 Magnesium 2.1 Total Bilirubin 1.2 AST 35 ALT 44 Alkaline Phosphatase 69 Total Creatine Kinase 64 Total Protein 8.3 Albumin 4.8 Globulin 3.6 Albumin/Globulin Ratio 1.3 Triglycerides Cholesterol LDL Cholesterol Direct HDL Cholesterol Free T4 Thyroxine (T4) TSH 3rd Generation Urine Color Yellow Urine Appearance Sl cloudy Urine pH 5.5 Ur Specific Almyra >= 1.030 Urine Protein Trace H Urine Glucose (UA) Negative Urine Ketones Negative Urine Blood Large H Urine Nitrate Negative Urine Bilirubin Negative Urine Urobilinogen 0.2 Ur Leukocyte Esterase Moderate H Urine RBC 0 - 2 Urine WBC 25 - 30 Ur Epithelial Cells 4 - 5 Urine Bacteria Small Salicylates Urine Opiates Screen Urine Methadone Screen Acetaminophen Ur Barbiturates Screen Ur Phencyclidine Scrn Ur Amphetamines Screen U Benzodiazepines Scrn U Oth Cocaine Metabols U Cannabinoids Screen Alcohol, Quantitative 08/08/18 08/08/18 08/08/18 13:10 13:10 13:10 WBC RBC Hgb Hct MCV MCH MCHC RDW Plt Count MPV Gran % Lymph % (Auto) Dooly % (Auto) Eos % (Auto) Baso % (Auto) Gran # Lymph # (Auto) Dooly # (Auto) Eos # (Auto) Baso # (Auto) Sodium Potassium Chloride Carbon Dioxide Anion Gap BUN Creatinine Est GFR ( Amer) Est GFR (Non-Af Amer) Random Glucose Fasting Glucose Calcium Magnesium Total Bilirubin AST ALT Alkaline Phosphatase Total Creatine Kinase Total Protein Albumin Globulin Albumin/Globulin Ratio Triglycerides Cholesterol LDL Cholesterol Direct HDL Cholesterol Free T4 Thyroxine (T4) TSH 3rd Generation Urine Color Urine Appearance Urine pH Ur Specific Almyra Urine Protein Urine Glucose (UA) Urine Ketones Urine Blood Urine Nitrate Urine Bilirubin Urine Urobilinogen Ur Leukocyte Esterase Urine RBC Urine WBC Ur Epithelial Cells Urine Bacteria Salicylates < 1 L Urine Opiates Screen Negative Urine Methadone Screen Negative Acetaminophen < 10.0 L Ur Barbiturates Screen Negative Ur Phencyclidine Scrn Negative Ur Amphetamines Screen Negative U Benzodiazepines Scrn Positive H U Oth Cocaine Metabols Negative U Cannabinoids Screen Negative Alcohol, Quantitative < 10 08/09/18 08/09/18 06:00 06:20 WBC RBC Hgb Hct MCV MCH MCHC RDW Plt Count MPV Gran % Lymph % (Auto) Dooly % (Auto) Eos % (Auto) Baso % (Auto) Gran # Lymph # (Auto) Dooly # (Auto) Eos # (Auto) Baso # (Auto) Sodium Potassium Chloride Carbon Dioxide Anion Gap BUN Creatinine Est GFR ( Amer) Est GFR (Non-Af Amer) Random Glucose Fasting Glucose 93 Calcium Magnesium Total Bilirubin AST ALT Alkaline Phosphatase Total Creatine Kinase Total Protein Albumin Globulin Albumin/Globulin Ratio Triglycerides 97 Cholesterol 154 LDL Cholesterol Direct 79 HDL Cholesterol 56 Free T4 1.46 Thyroxine (T4) 10.4 TSH 3rd Generation 0.29 L Urine Color Urine Appearance Urine pH Ur Specific Almyra Urine Protein Urine Glucose (UA) Urine Ketones Urine Blood Urine Nitrate Urine Bilirubin Urine Urobilinogen Ur Leukocyte Esterase Urine RBC Urine WBC Ur Epithelial Cells Urine Bacteria Salicylates Urine Opiates Screen Urine Methadone Screen Acetaminophen Ur Barbiturates Screen Ur Phencyclidine Scrn Ur Amphetamines Screen U Benzodiazepines Scrn U Oth Cocaine Metabols U Cannabinoids Screen Alcohol, Quantitative - EKG Data EKG Interpreted by: ER Physician DSM Plan - DSM 5 DSM 5 Diagnosis: as per h/o MDD MANDY r/o OCD - Recommended/Plan of Treatment Treatment Recommendations and Plan of Treatment: Milieu/structure/supportive therapy Medical consult appreciated neurology consult called SW consultation for discharge plan and social issues Med management meds confirmed risperdal 0.5mg po hs for confusion lexapro 20mg po daily xanax 0.5mg po qid for anxiety Family involvement Follow up on labs Will monitor closely Pt was educated about risk/benefits and alternatives of medications, coping strategies (safety plan, suicide prevention), relapse prevention, importance of follow up with psychiatrist and therapist, stay away from drugs/alcohol/smoking possible ECT Projected ELOS: 7days Prognosis: guarded Discharge Plan and Discharge Criteria: Pt will be not depressed or manic, will be more hopeful, will be not psychotic or anxious, will be not having thoughts of harming self or others, will be tolerating medications well, will not have major side effects, will be able to f unction, will not pose threat to self or others. - Tobacco Cessation Tobacco Use Status for the last 30 days: Non User Tobacco Use Treatment Practical Counseling Provided: No Tobacco Use Treatment FDA-Approved Cessation Medication Provided: No - Alcohol or Substance Abuse Does the patient have an Alcohol or Substance Abuse Disorder: No Initial Psych Certification - Initial Certification I certify that the inpatient psychiatric facility admission was medically necessary for either: Treatment which could reasonbly be expected to improve pt's condition, Diagnostic study I estimate of hospitalization is necessary for proper treatment of the patient: 7 Unit of Time: Days My plans for post-hospital care for this patient are: DTP f/u with
--- NOTE | 2018-08-09 16:49 | MRI ---
Date of service: 08/09/2018 PROCEDURE: MRI BRAIN WITHOUT CONTRAST HISTORY: altered mental status, evaluation COMPARISON: None available. TECHNIQUE: Multiplanar, multisequence MR images of the brain were obtained without intravenous contrast enhancement. FINDINGS: HEMORRHAGE: None DWI: No evidence of an acute or early subacute infarction. BRAIN PARENCHYMA: No mass effect or edema. No atrophy or chronic microvascular ischemic changes. VENTRICLES: Unremarkable. No hydrocephalus. CRANIUM: Unremarkable. ORBITS: Grossly unremarkable. PARANASAL SINUSES/MASTOIDS: Clear VASCULAR SYSTEM: Skull base flow voids intact. OTHER FINDINGS: None. IMPRESSION: No acute intracranial findings
--- NOTE | 2018-08-09 17:31 | US ---
Date of service: 08/09/2018 HISTORY: ??SUB CLINICAL HYTHYROIDISM TECHNIQUE: Sonographic evaluation of the thyroid gland. COMPARISON: FINDINGS: RIGHT LOBE: Measures 2.1 x 1.6 x 3.2 cm. Heterogenous echotexture, normal vascularity Nodules: 1. Solitary cystic nodule midpole region 3 x 6 x 4 mm LEFT LOBE: Measures 3.4 x 3.6 x 4.6 cm. Heterogenous echotexture, normal vascularity Nodules: 1. Cystic nodule upper pole 3 x 4 x 5 mm. 2. Cystic nodule upper pole 2 x 3 x 3 mm. 3. Solid nodule midpole region 0.6 x 0.9 x 1.4 cm. 4. Solid isoechoic nodule mid pole region 1.3 x 1.7 x 1.4 cm. 5. Solid isoechoic nodule lower pole 2.1 x 2.2 x 2.3 cm ISTHMUS: Measures 3.2 mm. Nodules: None OTHER FINDINGS: None . IMPRESSION: Multiple bilateral thyroid nodules. The largest are in the left lobe, described oral. These are solid nodules which are hypervascular. Recommendations for follow-up: 1. Radionuclide Scan to assess Thyroid function and to evaluate the thyroid for the presence of hot or cold nodules. 2. Fine needle aspiration (FNA) should also be considered as an invasive diagnostic tool in the assessment of findings described above.
[2018-08-09 19:05] LABS: LYME IGG NEGATIVE (NEGATIVE)
[2018-08-09 20:32] LABS: LYME IGM NEGATIVE (NEGATIVE)
--- NOTE | 2018-08-09 21:41 | CON ---
DATE: 08/09/2018 HISTORY OF PRESENT ILLNESS: The patient is a 62-year-old female who was admitted through the emergency room to the psychiatric floor. The patient came to the emergency room as a walk-in, accompanied by the patient's . According to the patient's , the patient was sent by Dr. Dumont for increasing anxiety, auditory, visual, and tactile hallucination. The patient was disoriented and was oriented to self only REVIEW OF SYSTEMS: Fourteen-system review was done. The patient presented with anxiety, increasing depression, auditory and visual hallucination. The patient was seen by the psychiatrist. CODE STATUS: Full code. LIVING WILL/ADVANCE DIRECTIVE: None. ALLERGIES: None. Height is 5 feet 6 inches. Weight is 139. BMI is 23. HOME MEDICATIONS: 1. Norvasc 2.5 mg daily. 2. Protonix 40 mg daily. 3. Lovaza 1 g twice a day. 4. Lexapro 20 mg daily. 5. Calcium and vitamin D daily. 6. Biotin 5 mg twice a day. 7. Lipitor 40 mg daily. 8. Xanax 1 mg q.i.d. SOCIAL HISTORY: Former smoker. Denies alcohol. Denies drug use. Denies communicable transmissible disease. FAMILY HISTORY: Not available. MENSTRUAL HISTORY: Postmenopausal. PAST MEDICAL, SURGICAL, AND PSYCHIATRIC HISTORY: History of anxiety, history of depression, history of auditory and visual hallucination, history of hypertension, history of hypertriglyceridemia, history of hyperlipidemia, history of hypovitaminosis D, history of hyperlipidemia, history of anxiety disorder, history of depression, history of cholecystectomy, history of left wrist fracture; left wrist surgery, history of anxiety, depression. 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 Past history is significant for history of obsessive-compulsive disorder, history of generalized anxiety disorder, history of major depression. PHYSICAL EXAMINATION: GENERAL: The patient is seen in #519. VITAL SIGNS: T-max is 99.9. Heart rate 78 to 90. Blood pressure 122/78, 140/70, 144/61. Respirations 18 to 20. O2 sat 98%. The patient is seen lying in the bed. HEENT: Head examination normocephalic, atraumatic. HEENT examination shows pink conjunctivae. Anicteric sclerae. No oropharyngeal lesion. No neck rigidity. CHEST: Examination, kyphosis. LUNGS: Examination shows no audible crackle, rales or wheezing. CARDIOVASCULAR: Shows S1, S2, regular rhythm. Questionable loud S2 noted. No audible murmur, gallop or rub at this time. ABDOMEN: Soft. Positive bowel sound. No palpable hepatosplenomegaly. No palpable pulsation noted. No organomegaly noted. GENITALIA: Female. RECTAL: Examination deferred. EXTREMITIES: Extremity shows no pitting edema, no calf tenderness, no Homans' signs. MUSCULOSKELETAL: Examination shows a body mass index of 23. Motor strength is 5/5. Cranial nerves II-XII limited. Gait examination is not tested. Psychiatric examination is as per the psychiatrist evaluation. NEUROLOGIC: The patient is slow to answer, but the patient is alert, awake, responsive with questionable disorientation noted. The patient is able to follow simple command. Motor strength of upper and lower extremities is grossly intact. Gait examination is not tested. Coordination examination could not be assessed. DIAGNOSTIC DATA: On 08/09/2018, WBC 9.0, hemoglobin/hematocrit are 14.2 and 44.3, platelet 245,000. Sodium 40, potassium 4.8, chloride 99, CO2 32, anion gap 14, BUN 15, creatinine 0.7, GFR greater than 60, glucose 122, calcium 9.3, magnesium 2.1. LFTs are within normal limit. Cholesterol 154, triglyceride is 97, LDL 79, HDL 56. TSH is low at 0.29. T4 is 10. Urinalysis shows trace protein, large blood, moderate leukocyte esterase, small bacteria. Urine drug screen is positive for benzodiazepines, salicylates. Acetaminophen and alcohol level is negative. Chest x-ray, CAT scan of the head, and EKG were reviewed. CT of the head shows microangiopathic changes and global parenchymal volume lost. Chest x-ray was a negative exam. The patient was seen and evaluated in the emergency room by the ER physician, Dr. Richards. The patient was medically cleared. EKG shows sinus rhythm, baseline artifact. IMPRESSION AND PLAN: 1. Acute exacerbation of anxiety and depression. 2. Disorientation with questionable encephalopathy. 3. Auditory, visual, and tactile hallucination. 4. Low-grade fever. 5. Hyperglycemia. 6. Questionable subclinical hyperthyroidism with decreased thyroid stimulating hormone. 7. Questionable urinary tract infection with proteinuria, microscopic hematuria, pyuria, bacteriuria. 8. Chronic microangiopathic changes of the brain with age-related global parenchymal volume loss and cerebral cortical atrophy of the brain with ventriculomegaly. 9. History of hyperlipidemia and hypertriglyceridemia. 10. History of hypovitaminosis D. 11. Disorientation versus encephalopathy versus secondary to acute exacerbation of anxiety and depression. PLAN: At this time, the patient has been admitted under Psychiatry. The patient's hemoglobin A1c level is pending. Vitamin D 25-hydroxy has been ordered. Fructosamine, GlycoMark, Lyme titers, repeat CBC, and urine cultures ordered. Procalcitonin level and RPR ordered. CURRENT MEDICATIONS: The patient is on Ativan 2 mg p.o. or IM every 6 hours p.r.n., Colace 100 mg three times a day, Drisdol 50,000 units weekly, Ecotrin 81 mg daily, Geodon 20 mg p.o. or IM every 6 hours p.r.n., Lexapro 20 mg daily, Lipitor 20 mg daily, Lipitor 40 mg daily, Lovaza 1 g twice a day, Maalox or milk of magnesia p.r.n., Norvasc 2.5 mg daily, Protonix 40 mg daily, Risperdal 0.5 mg at bedtime, saliva substitute 5 mL three times a day, Tylenol p.r.n. has been ordered. Repeat EKG has been ordered because the initial EKG has baseline artifacts. At present, the patient will be ordered a repeat chest x-ray, PA and lateral, for evaluation of low-grade fever. Thyroid ultrasound has been ordered. The patient will be started on empiric antibiotics, Augmentin 875 mg twice a day, waiting urine cultures.. At present, the patient's management, treatment plan, all details discussed with the patient's nurses on the psychiatry floor. The patient will be followed up very closely with the Medical Service for further management and treatment. Dictated and electronically signed, not read. Massimo Khan MD
--- NOTE | 2018-08-10 03:36 | CON ---
DATE: 08/09/2018 HISTORY OF PRESENT ILLNESS: This is a 62-year-old female with past medical history of anxiety and depression, who came to the hospital via emergency room accompanied by and experiencing burning sensation on the skin and spots in her vision and lump in the mouth. is not sure if there is anxiety, and called to evaluate the patient. A CAT of the head was done which was reported negative. MRI of the head was done which was also negative for any lesions. PAST MEDICAL HISTORY: Hypertension, GERD and anxiety and depression. The patient also had cholecystectomy. ALLERGIES: NO KNOWN DRUG ALLERGIES. HOME MEDICATIONS: Xanax, Lipitor, Lexapro, Protinex, and Norvasc. PHYSICAL EXAMINATION: HEENT: Normocephalic and atraumatic. NECK: Supple. NEURO: Awake and orientated to self. Cranial nerves II through XII were tested. Pupils reactive. Spontaneous movement of the extremities noted. Deep tendon reflexes are 1+. Plantars are downgoing. Sensory appears intact. Cerebellar, gait deferred. IMPRESSION: A 62-year-old female presenting to the emergency room with anxiety. CAT scan and MRI were done which was normal. PLAN: Continue present workup. We will follow up. Jessee Julian MD
[2018-08-10] MEDS: Amoxicillin-Clav 875-125 mg Tab PO SCH ×2 (06:05→18:59)
[2018-08-10] MEDS: Pantoprazole 40 mg EC Tab PO SCH ×2 (06:05→19:05)
[2018-08-10 08:03] LABS: BASO # 0.01 K/mm3 (0.0-2.0); BASO % 0.1 % (0.0-3.0); EOS # 0.5 (0.0-0.7); EOS % 5.8 % (1.5-5.0); GRAN # 4.95 (1.4-6.5); GRAN % 63.5 % (50.0-68.0); HEMOGLOBIN 13.6 g/dL (12.0-16.0); LYMPH # 1.6 (1.2-3.4); LYMPH % 21.1 % (22.0-35.0); MEAN CELL VOLUME 96.3 fl (80.0-105.0); MEAN CORPUSCULAR HEMOGLOBIN 31.4 pg (25.0-35.0); MEAN CORPUSCULAR HGB CONC 32.6 g/dl (31.0-37.0); MONO # 0.7 (0.1-0.6); MONO % 9.5 % (1.0-6.0); RBC 4.33 10^6/uL (3.5-6.1); RED CELL DISTRIBUTION WIDTH 13.4 % (11.5-14.5); WHITE BLOOD COUNT 7.8 10^3/uL (4.5-11.0)
[2018-08-10 08:39] LABS: ALB/GLOB RATIO 1.3 (1.1-1.8); ALBUMIN 4.5 g/dL (3.0-4.8); BILIRUBIN,DIRECT 0.2 mg/dL (0.0-0.4); CALCIUM 9.2 mg/dL (8.4-10.5)
[2018-08-10] MEDS: Omega-3-Acid Ethyl Esters 1 GM Cap PO SCH ×2 (08:45→16:07)
[2018-08-10] MEDS: Saliva Substitute 44.3 ML PO SCH ×3 (08:47→19:06)
[2018-08-10] MEDS: Potassium Chloride 20 mEq ER Tab PO SCH ×2 (10:21→11:35)
--- NOTE | 2018-08-10 13:48 | PCM.PYCHPN ---
Psychiatric Progress Note - Psychiatric Progress Note Patient seen today, length of contact: 30 minutes Patient Chief Complaint: "I am losing my hair, do you know if all of my hair will grow back?" Problems Identified/Issues Discussed: Suicide/ homicide prevention, past psychiatric h/o, current psychiatric symptoms, medical problems, risk/benefits and alternatives of medications, medications compliance, coping strategies, substance abuse h/o, relapse prevention, importance of follow up with psychiatrist and therapist, discharge plan. Medical Problems: Please see Dr. Khan's note for more detailed information Diagnostic Results: 08/10/18 07:30 08/10/18 07:30 Lab Results 08/10/18 07:30: Sodium 136, Potassium 3.1 L, Chloride 94 L, Carbon Dioxide 30, Anion Gap 14, BUN 30 H, Creatinine 1.2, Est GFR ( Amer) 55, Est GFR (Non-Af Amer) 45, Random Glucose 154 H, Calcium 9.2, Phosphorus 3.7, Magnesium 2.1, Total Bilirubin 1.1, Direct Bilirubin 0.2, AST 33, ALT 41, Alkaline Phosphatase 60, Total Protein 7.9, Albumin 4.5, Globulin 3.4, Albumin/Globulin Ratio 1.3 08/10/18 07:30: WBC 7.8 D, RBC 4.33, Hgb 13.6, Hct 41.7, MCV 96.3, MCH 31.4, MCHC 32.6, RDW 13.4, Plt Count 215, MPV 10.0, Gran % 63.5, Lymph % (Auto) 21.1 L , Mcculloch % (Auto) 9.5 H, Eos % (Auto) 5.8 H, Baso % (Auto) 0.1, Gran # 4.95, Lymph # (Auto) 1.6, Mcculloch # (Auto) 0.7 H, Eos # (Auto) 0.5, Baso # (Auto) 0.01 08/09/18 08:47: Total T3 1.35 08/09/18 08:47: Free T3 pg/mL 3.53 08/09/18 08:27: WBC 14.7 H D, RBC 4.52, Hgb 14.5, Hct 43.5, MCV 96.2, MCH 32.1, MCHC 33.3, RDW 13.3, Plt Count 203, MPV 10.0, Gran % 90.0 H, Lymph % (Auto) 4.6 L, Mcculloch % (Auto) 5.2, Eos % (Auto) 0.1 L, Baso % (Auto) 0.1, Gran # 13.26 H, Lymph # (Auto) 0.7 L, Mcculloch # (Auto) 0.8 H, Eos # (Auto) 0.0, Baso # (Auto) 0.01, Neutrophils % (Manual) 88 H, Band Neutrophils % 1, Lymphocytes % (Manual) 7 L, Monocytes % (Manual) 4, Platelet Evaluation Normal 08/09/18 08:25: Procalcitonin < 0.05 L, Lyme Disease IgG Ab (IFA) Negative, Lyme Disease IgM Ab Negative 08/09/18 08:24: Fructosamine 251 08/09/18 06:20: RPR Nonreactive 08/09/18 06:20: Fasting Glucose 93, Triglycerides 97, Cholesterol 154, LDL Cholesterol Direct 79, HDL Cholesterol 56 08/09/18 06:00: Free T4 1.46, Thyroxine (T4) 10.4, TSH 3rd Generation 0.29 L 08/09/18 06:00: 25-OH Vitamin D Total 28.3 L 08/09/18 06:00: Hemoglobin A1c 5.5 08/08/18 13:10: Alcohol, Quantitative < 10 08/08/18 13:10: Salicylates < 1 L, Acetaminophen < 10.0 L 08/08/18 13:10: Urine Opiates Screen Negative, Urine Methadone Screen Negative, Ur Barbiturates Screen Negative, Ur Phencyclidine Scrn Negative, Ur Amphetamines Screen Negative, U Benzodiazepines Scrn Positive H, U Oth Cocaine Metabols Negative, U Cannabinoids Screen Negative 08/08/18 13:10: Sodium 140, Potassium 4.8, Chloride 99, Carbon Dioxide 32, Anion Gap 14, BUN 15, Creatinine 0.7, Est GFR ( Amer) > 60, Est GFR (Non-Af Amer) > 60, Random Glucose 122 H, Calcium 10.3, Magnesium 2.1, Total Bilirubin 1.2, AST 35, ALT 44, Alkaline Phosphatase 69, Total Creatine Kinase 64, Total Protein 8.3, Albumin 4.8, Globulin 3.6, Albumin/Globulin Ratio 1.3 08/08/18 13:10: Urine Color Yellow, Urine Appearance Sl cloudy, Urine pH 5.5, Ur Specific N[place] >= 1.030, Urine Protein Trace H, Urine Glucose (UA) Negative, Urine Ketones Negative, Urine Blood Large H, Urine Nitrate Negative, Urine Tim irubin Negative, Urine Urobilinogen 0.2, Ur Leukocyte Esterase Moderate H, Urine RBC 0 - 2, Urine WBC 25 - 30, Ur Epithelial Cells 4 - 5, Urine Bacteria Small 08/08/18 13:10: WBC 9.0, RBC 4.52, Hgb 14.2 D, Hct 44.3, MCV 98.0, MCH 31.4, MCHC 32.1, RDW 13.5, Plt Count 245, MPV 10.5, Gran % 63.4, Lymph % (Auto) 25.1, Mcculloch % (Auto) 10.4 H, Eos % (Auto) 0.9 L, Baso % (Auto) 0.2, Gran # 5.73, Lymph # (Auto) 2.3, Mcculloch # (Auto) 0.9 H, Eos # (Auto) 0.1, Baso # (Auto) 0.02 Vital Signs Temp Pulse Pulse Pulse Resp BP Pulse Ox 08/10/18 08:45 134/74 08/10/18 07:32 98.9 F 85 20 134/74 08/09/18 16:40 99.3 F 08/09/18 16:18 85 136/65 08/09/18 10:53 99.9 F H 08/09/18 09:14 99.7 F H 08/09/18 08:31 144/61 08/09/18 08:28 99.9 F H 08/09/18 07:15 99.9 F H 90 20 144/61 08/08/18 23:15 69 69 18 08/08/18 18:25 98.0 F 78 18 122/78 98 08/08/18 14:31 98.0 F 74 16 141/72 98 MRI showed no acute intracranial findings it was done on 08/09/2018 Thyroid ultrasonogram was done 08/09/2018 multiple bilateral thyroid nodules, the largest are on the left lobe, there are solid nodules which are hyper vascular recommendations for follow-up: radionuclear scan to assess thyroid function Fine-needle aspiration showed also be considered Chest x-ray was within normal limits EKG showed normal sinus rhythm with normal EKG 08/09/2018 DSM 5 Symptoms Update: Patient is a 62 year old female with a history of depression and anxiety (likely MANDY and Panic Disorder), one prior psychiatric admissions to this facility for anxiety and depression this year, in psychiatric treatment with Dr. Dumont and reportedly compliant with medications, who presented to our ER with her spouse yesterday 08/08/18 for a psychiatric evaluation and admission as per recommendation. in ED pt presented to be depressed, mildly paranoid, guarded. pt is very familiar to this facility due to psych admission in 11/2017, pt presented with acceptable personal hygiene, poor ADLs. Yesterday patient scored 0 on Mini Cog exam. Patient presented today Less drowsy, was able to hold conversation, was able to stay focused. Patient reported that she slept well, denied being depressed, patient was fixated with her "nervousness", was saying that she is losing hair, and she is very concerned about that. As per staff patient is mildly anxious, no agitation, no aggression, recent compliant with her medications Patient was educated about the risk, benefits, alternatives of all of the medications. So far patient tolerates medications well, no side effects observed or reported, AIMS 0, no EPS. discussed with ECT might be helpful. Impression: DSM 5 Diagnosis: as per h/o MDD MANDY r/o OCD Medication Change: No (Adjusted 08/09/2018) Medical Record Reviewed: Yes Consults ordered or reviewed: Dr. Khan consultation appreciated See note for more detailed information Mental Status Examination - Cognitive Function Orientation: Person, Place Memory: Intact Attention: Poor Concentration: Poor Association: Loose Fund of Knowledge: Poor - Mood Mood: Depressed, Anxious - Affect Affect: Flat - Formal Thought Process Formal Thought Process: Other (preoccupied) - Suicidal Ideation Suicidal Ideation: No - Homicidal Ideation Homicidal Ideation: No Goal/Treatment Plan - Goal/Treatment Plan Need for Continued Stay: Remain at risks for inpatient hospitalization, Severe depression anxiety, Discharge may exacerbated symptoms, Severe functional impairment Progress Toward Problem(s) and Goals/Treatment Plan: Milieu/structure/supportive therapy Medical consult appreciated neurology consult called SW consultation for discharge plan and social issues Med management meds confirmed risperdal 0.5mg po hs for confusion lexapro 20mg po daily xanax 0.5mg po qid for anxiety Family involvement Follow up on labs Will monitor closely Pt was educated about risk/benefits and alternatives of medications, coping st rategies (safety plan, suicide prevention), relapse prevention, importance of follow up with psychiatrist and therapist, stay away from drugs/alcohol/smoking possible ECT Estimated Date of D/C: 08/17/18
--- NOTE | 2018-08-10 13:52 | PN ---
DATE: 08/10/2018 SUBJECTIVE: The patient is in room 519, bed 1. Overnight nurse's notes were reviewed. The patient was found to have disorganized affect, disoriented, confused with poor memory, poor insight, poor judgment. The patient was found to be anxious. The patient was also noticed by nurses to be packing up the suitcase and packing up her clothes and thinking that the patient is going to be going home. The patient was then redirected by the patient's nurses.. PHYSICAL EXAMINATION: VITAL SIGNS: T-max 99.9 yesterday, down to 98.9, heart rate 85, blood pressure 136/65 and 134/74, respirations 20, O2 sat 98%. HEENT: Head examination, normocephalic, atraumatic. HEENT examination shows pink conjunctivae, anicteric sclerae. No oropharyngeal lesion. No neck rigidity. CHEST: Kyphosis. LUNGS: Examination shows no audible crackle, rales, or wheezing. CARDIOVASCULAR: S1, S2, regular rhythm. No audible murmur, gallop, or rub. ABDOMEN: Soft. Positive bowel sounds. No palpable hepatosplenomegaly noted. GENITALIA: Female. RECTAL: Examination is deferred. EXTREMITIES: No pitting edema, no calf tenderness, no Homans' sign. NEUROLOGIC: The patient is alert, awake, responsive, confused, disoriented. Motor strength is 5/5 in upper and lower extremities. GAIT: Examination not tested. VASCULAR: Palpable pulses. PSYCHIATRIC: Positive for anxiety, positive for disorientation, positive for confusion, positive for poor memory, positive for poor insight and judgment, positive for disorganized mood and affect. DIAGNOSTICS: From 08/09/2018 and 08/10/2018 were reviewed. 08/09/2018, CBC shows a WBC of 14.7, hemoglobin/hematocrit 14.5/43.5, platelet 203. Granulocytes 90% segs. Cholesterol 154, LDL 79, HDL 56. Vitamin D 25-hydroxy 28.3. Procalcitonin level is negative. RPR is negative. Lyme, IgM, and IgG titers are negative. MRI of the brain are negative for any an ischemia or stroke. Thyroid ultrasound shows multiple bilateral thyroid nodules, left more than the right with hypervascular isoechoic nodules of the left lobe. Repeat labs on 08/10/2018, which is today shows WBC count is down to 7.8 from 14.7, hemoglobin/hematocrit 13.6/41.7, platelet 215. Sodium 136, potassium 3.1, chloride 94, CO2 of 30, BUN 30, creatinine 1.2, glucose 154, calcium 9.2, phosphorus 3.7, magnesium 2.1. LFTs are within normal limits. Urine cultures contaminated with multiple organisms. IMPRESSION AND PLAN: 1. Low grade fever (resolved). 2. Transient leukocytosis and granulocytosis (resolved). 3. Acute and severe exacerbation of anxiety and depression. 4. Disorganized mood and affect with disorientation and confusion. 5. Poor memory, poor insight, and poor judgment. 6. History of anxiety and depression. 7. Auditory and visual hallucination. 8. Questionable and possible dementia versus delirium. 9. Leukocytosis with granulocytosis (resolved). 10. Hypovitaminosis D. 11. History of hyperlipidemia and hypertriglyceridemia. 12. Multiple bilateral thyroid nodules, left more than the right with hypervascular isoechoic nodule. 13. Anxiety disorder. 14. Hypokalemia. Plan at this time, the patient is to be continued on psychotropic medications as per the psychiatrist. The patient has been ordered potassium supplementation two doses to keep the potassium around 4.1 to 4.5. Repeat CBC, CMP, LFT, magnesium, phosphorus ordered for the morning. The patient was seen by Neurology. Interventional Radiology consultation has been requested for evaluation for possible thyroid nodule biopsy. The patient has been continued on Drisdol 50,000 units weekly. The patient is to be continued on Lipitor 40 mg daily and Lovaza 1 g twice a day. The patient is on Augmentin 875 twice a day. Urine culture has been ordered, repeat urine culture has been ordered. The results are pending. Chest x-ray PA and lateral done yesterday was reviewed which was negative for any active disease.. We will continue medications as per the MAR of today which was reviewed. We will continue with GI, DVT prophylaxis. The patient will be continued on aspirin 81 mg p.o. daily for primary stroke prevention. The patient will be continued on antihypertensive, Norvasc. At present, the patient's further management will be dependent upon the patient's clinical condition, hemodynamic status and as per the patient's response to therapeutic intervention, as per the patient's diagnostic test results and as per recommendation by Psychiatry, Neurology, and Interventional Radiology. The patient's repeat laboratory data has been ordered for the morning. The patient's antibiotic will be continued if the patient's urine cultures are positive, otherwise the patient's antibiotics will be discontinued. The patient will be continued on Tylenol p.r.n. for fever. At present, the patient does not seem to have any source of the low-grade fever, most likely it is a reactive fever. Dictated and electronically signed, not read. Massimo Khan MD
[2018-08-11 07:05] LABS: BASO # 0.02 K/mm3 (0.0-2.0); BASO % 0.3 % (0.0-3.0); EOS # 0.4 (0.0-0.7); EOS % 6.8 % (1.5-5.0); GRAN # 3.66 (1.4-6.5); GRAN % 59.6 % (50.0-68.0); HEMOGLOBIN 12.7 g/dL (12.0-16.0); LYMPH # 1.2 (1.2-3.4); MEAN CELL VOLUME 96.3 fl (80.0-105.0); MEAN CORPUSCULAR HEMOGLOBIN 31.7 pg (25.0-35.0); MEAN CORPUSCULAR HGB CONC 32.9 g/dl (31.0-37.0); MONO # 0.8 (0.1-0.6); MONO % 13.3 % (1.0-6.0); RBC 4.01 10^6/uL (3.5-6.1); RED CELL DISTRIBUTION WIDTH 13.7 % (11.5-14.5); WHITE BLOOD COUNT 6.2 10^3/uL (4.5-11.0)
[2018-08-11 07:29] LABS: ALB/GLOB RATIO 1.2 (1.1-1.8); ALBUMIN 3.7 g/dL (3.0-4.8); ALT/SGPT 43 U/L (7-56); AST/SGOT 32 U/L (14-36); BILIRUBIN,DIRECT 0.3 mg/dL (0.0-0.4); BLOOD UREA NITROGEN 23 mg/dL (7-21); CALCIUM 9.1 mg/dL (8.4-10.5); GFR NON-AFRICAN AMERICAN > 60
[2018-08-11] MEDS: Omega-3-Acid Ethyl Esters 1 GM Cap PO SCH ×2 (09:25→17:48)
[2018-08-11] MEDS: Amoxicillin-Clav 875-125 mg Tab PO SCH ×2 (09:25→17:39)
[2018-08-11] MEDS: Saliva Substitute 44.3 ML PO SCH ×3 (09:26→17:48)
[2018-08-11] MEDS: Pantoprazole 40 mg EC Tab PO SCH ×2 (09:26→17:48)
--- NOTE | 2018-08-11 14:45 | PN ---
DATE: 08/11/2018 SUBJECTIVE: The patient is seen ambulating on Psychiatry floor and then examined in room 519. Overnight nurse's notes were reviewed. The patient was found to be less confused but is still disorganized. With poor memory, requiring constant redirection, poor insight and judgment. The patient was found to be less anxious. PHYSICAL EXAMINATION: VITAL SIGNS: T-max 98.9-98.3, heart rate 73, blood pressure 110/60, 134/70, respirations 20, O2 sat is 98%. HEENT Head examination normocephalic, atraumatic. HEENT examination shows pink conjunctivae. Anicteric sclerae. No oropharyngeal lesion. No neck rigidity. CHEST: Kyphosis. LUNGS: Examination shows no crackles, rales or wheezing. ABDOMEN: Soft. Positive bowel sound. GENITALIA: Female. RECTAL: Examination is deferred. EXTREMITY: Shows no pitting edema, no calf tenderness, no Homans sign. NEUROLOGIC: The patient is alert, awake, oriented. She is able to ambulate independently. Cranial nerves II-XII intact. VASCULAR: Examination palpable pulses. Plantars are downward. DTRs at 2+. MUSCULOSKELETAL: Examination shows a body mass index of 23. PSYCHIATRIC: Examination is positive for anxiety. Positive for poor insight and judgment, poor memory. DIAGNOSTICS: 08/11/2018, WBC 6.2, hemoglobin and hematocrit 12.7 and 38.6, platelet 182. Sodium 36, potassium is up to 3.9, chloride 101, CO2 of 31, anion gap 8, BUN 23, creatinine 0.8, GFR greater than 60, glucose 106, hemoglobin A1c 5.5. Fructosamine is 251. Calcium 9.1, phosphorus 3.34, magnesium 2.2. LFTs are normal.. RPR, Lyme disease screen is negative. Urine cultures, repeat urine culture from 08/09/2018 less than 1000. IMPRESSION AND PLAN: 1. Acute exacerbation of anxiety and depression. 2. Confusion and disorientation. 3.. Poor insight and judgment. 4. Low grade fever (resolved). 5. Transient leukocytosis with granulocytosis and (resolved). 6. Hypokalemia (resolved). 7. Mild prerenal kidney injury. 8. Questionable and possible prediabetes with hemoglobin A1c of 5.5. 9. Hypovitaminosis D. 10. Trace proteinuria. 11. Proteinuria. 12. Microscopic hematuria. 13. Pyuria. 14. Bacteriuria. 15. Questionable cognitive impairment with memory dysfunction. 16. Major depressive disorder. 17. Questionable possible obsessive-compulsive disorder. 18. Multiple bilateral thyroid nodule, left more than the right with left thyroid lobe hypervascular solid nodules. 19. Low grade fever. 20. Aortic calcification. 21. Anxiety disorder. 22. History of constipation. 23. Hypovitaminosis D. 24. History of hyperlipidemia. 25. History of hypertriglyceridemia. 26. History of depression. 27. History of anxiety. PLAN: Plan at this time, since the patient's repeat urine cultures are negative and the fever has trended downwards too, the patient's p.o. antibiotics will be discontinued after 3 days of therapy. The patient's current consultation is neurology and Interventional Radiology for evaluation of thyroid nodule biopsy. CURRENT MEDICATIONS: Ativan 2 mg p.o. IM every 6 hours p.r.n., Augmentin 875 twice a day, Colace 100 mg three times a day, Drisdol 50,000 units weekly, Ecotrin 81 mg daily, Geodon 20 mg p.o. IM every 6 hours p.r.n., Lexapro 20 mg daily, Lipitor 40 mg daily, Lovaza 1 g twice a day, milk of magnesia p.r.n., and Maalox p.r.n., Norvasc 2.5 mg daily, Protonix 40 mg daily, Risperdal 0.5 at night, saliva substitute 5 mL 3 times a day, Tylenol p.r.n., Xanax 0.5 mg 4 times a day [id number]. The patient is on heart-healthy diet. At present, the patient should be continued on the above therapeutic intervention. The patient at present is medically stable. We will await further recommendation by Dr. Randal Booth regarding thyroid nodule biopsy. which will be determined upon the recommendation by Interventional Radiology and if the patient wishes to proceed with it. Dictated and electronically signed, not read. Massimo Khan MD
--- NOTE | 2018-08-11 16:52 | PCM.PYCHPN ---
Psychiatric Progress Note - Psychiatric Progress Note Patient seen today, length of contact: 30 minutes Patient Chief Complaint: "I am losing my hair, do you know if all of my hair will grow back, now I feel even more anxious, they found some thyroid nodules in my throat" Problems Identified/Issues Discussed: Suicide/ homicide prevention, past psychiatric h/o, current psychiatric symptoms, medical problems, risk/benefits and alternatives of medications, medications compliance, coping strategies, substance abuse h/o, relapse prevention, importance of follow up with psychiatrist and therapist, discharge plan. Medical Problems: Please see Dr. Khan's note for more detailed information Diagnostic Results: 08/10/18 07:30 08/10/18 07:30 Lab Results 08/10/18 07:30: Sodium 136, Potassium 3.1 L, Chloride 94 L, Carbon Dioxide 30, Anion Gap 14, BUN 30 H, Creatinine 1.2, Est GFR ( Amer) 55, Est GFR (Non- Af Amer) 45, Random Glucose 154 H, Calcium 9.2, Phosphorus 3.7, Magnesium 2.1, Total Bilirubin 1.1, Direct Bilirubin 0.2, AST 33, ALT 41, Alkaline Phosphatase 60, Total Protein 7.9, Albumin 4.5, Globulin 3.4, Albumin/Globulin Ratio 1.3 08/10/18 07:30: WBC 7.8 D, RBC 4.33, Hgb 13.6, Hct 41.7, MCV 96.3, MCH 31.4, MCHC 32.6, RDW 13.4, Plt Count 215, MPV 10.0, Gran % 63.5, Lymph % (Auto) 21.1 L , [place] % (Auto) 9.5 H, Eos % (Auto) 5.8 H, Baso % (Auto) 0.1, Gran # 4.95, Lymph # (Auto) 1.6, [place] # (Auto) 0.7 H, Eos # (Auto) 0.5, Baso # (Auto) 0.01 08/09/18 08:47: Total T3 1.35 08/09/18 08:47: Free T3 pg/mL 3.53 08/09/18 08:27: WBC 14.7 H D, RBC 4.52, Hgb 14.5, Hct 43.5, MCV 96.2, MCH 32.1, MCHC 33.3, RDW 13.3, Plt Count 203, MPV 10.0, Gran % 90.0 H, Lymph % (Auto) 4.6 L, [place] % (Auto) 5.2, Eos % (Auto) 0.1 L, Baso % (Auto) 0.1, Gran # 13.26 H, Lymph # (Auto) 0.7 L, [place] # (Auto) 0.8 H, Eos # (Auto) 0.0, Baso # (Auto) 0.01, Neutrophils % (Manual) 88 H, Band Neutrophils % 1, Lymphocytes % (Manual) 7 L, Monocytes % (Manual) 4, Platelet Evaluation Normal 08/09/18 08:25: Procalcitonin < 0.05 L, Lyme Disease IgG Ab (IFA) Negative, Lyme Disease IgM Ab Negative 08/09/18 08:24: Fructosamine 251 08/09/18 06:20: RPR Nonreactive 08/09/18 06:20: Fasting Glucose 93, Triglycerides 97, Cholesterol 154, LDL Cholesterol Direct 79, HDL Cholesterol 56 08/09/18 06:00: Free T4 1.46, Thyroxine (T4) 10.4, TSH 3rd Generation 0.29 L 08/09/18 06:00: 25-OH Vitamin D Total 28.3 L 08/09/18 06:00: Hemoglobin A1c 5.5 08/08/18 13:10: Alcohol, Quantitative < 10 08/08/18 13:10: Salicylates < 1 L, Acetaminophen < 10.0 L 08/08/18 13:10: Urine Opiates Screen Negative, Urine Methadone Screen Negative, Ur Barbiturates Screen Negative, Ur Phencyclidine Scrn Negative, Ur Amphetamines Screen Negative, U Benzodiazepines Scrn Positive H, U Oth Cocaine Metabols Negative, U Cannabinoids Screen Negative 08/08/18 13:10: Sodium 140, Potassium 4.8, Chloride 99, Carbon Dioxide 32, Anion Gap 14, BUN 15, Creatinine 0.7, Est GFR ( Amer) > 60, Est GFR (Non-Af Amer) > 60, Random Glucose 122 H, Calcium 10.3, Magnesium 2.1, Total Bilirubin 1.2, AST 35, ALT 44, Alkaline Phosphatase 69, Total Creatine Kinase 64, Total Protein 8.3, Albumin 4.8, Globulin 3.6, Albumin/Globulin Ratio 1.3 08/08/18 13:10: Urine Color Yellow, Urine Appearance Sl cloudy, Urine pH 5.5, Ur Specific [place] >= 1.030, Urine Protein Trace H, Urine Glucose (UA) Negative, Urine Ketones Negative, Urine Blood Large H, Urine Nitrate Negative, Urine Bilirubin Negative, Urine Urobilinogen 0.2, Ur Leukocyte Esterase Moderate H, Urine RBC 0 - 2, Urine WBC 25 - 30, Ur Epithelial Cells 4 - 5, Urine Bacteria Small 08/08/18 13:10: WBC 9.0, RBC 4.52, Hgb 14.2 D, Hct 44.3, MCV 98.0, MCH 31.4, MCHC 32.1, RDW 13.5, Plt Count 245, MPV 10.5, Gran % 63.4, Lymph % (Auto) 25.1, [place] % (Auto) 10.4 H, Eos % (Auto) 0.9 L, Baso % (Auto) 0.2, Gran # 5.73, Lymph # (Auto) 2.3, [place] # (Auto) 0.9 H, Eos # (Auto) 0.1, Baso # (Auto) 0.02 Vital Signs Temp Pulse Pulse Pulse Resp BP Pulse Ox 08/10/18 08:45 134/74 08/10/18 07:32 98.9 F 85 20 134/74 08/09/18 16:40 99.3 F 08/09/18 16:18 85 136/65 08/09/18 10:53 99.9 F H 08/09/18 09:14 99.7 F H 08/09/18 08:31 144/61 08/09/18 08:28 99.9 F H 08/09/18 07:15 99.9 F H 90 20 144/61 08/08/18 23:15 69 69 18 08/08/18 18:25 98.0 F 78 18 122/78 98 08/08/18 14:31 98.0 F 74 16 141/72 98 MRI showed no acute intracranial findings it was done on 08/09/2018 Thyroid ultrasonogram was done 08/09/2018 multiple bilateral thyroid nodules, the largest are on the left lobe, there are solid nodules which are hyper vascular recommendations for follow-up: radionuclear scan to assess thyroid function Fine-needle aspiration showed also be considered Chest x-ray was within normal limits EKG showed normal sinus rhythm with normal EKG 08/09/2018 DSM 5 Symptoms Update: Patient is a 62 year old female with a history of depression and anxiety (likely MANDY and Panic Disorder), one prior psychiatric admissions to this facility for anxiety and depression this year, in psychiatric treatment with Dr. Dumont and reportedly compliant with medications, who presented to our ER with her spouse yesterday 08/08/18 for a psychiatric evaluation and admission as per recommendation. in ED pt presented to be depressed, mildly paranoid, guarded. pt is very familiar to this facility due to psych admission in 11/2017, pt pre sented with acceptable personal hygiene, poor ADLs. 08/09/2018 patient scored 0 on Mini Cog exam. 08/11/2018 patient was able to draw a clock, normal distribution of numbers, patient was able to repeat 3 objects and recalled 2 or mini cog exam. Patient presented today Less drowsy, was able to hold conversation, was able to stay focused. Patient reported that she slept well, denied being depressed, patient was fixated with her "nervousness" as well as "losing my vel", she is very concerned about that. As per staff patient is mildly anxious, no agitation, no aggression, compliant with her medications. Patient signed power of criminal attorney 08/10/2018, patient reported her to be her POA. Patient was educated about the risk, benefits, alternatives of all of the medications. So far patient tolerates medications well, no side effects observed or reported, AIMS 0, no EPS. discussed with ECT might be helpful. Impression: DSM 5 Diagnosis: as per h/o MDD MANDY r/o OCD Medication Change: Yes (Risperdal increased) Medical Record Reviewed: Yes Consults ordered or reviewed: Dr. Khan consultation appreciated See note for more detailed information Mental Status Examination - Cognitive Function Orientation: Person, Place Memory: Intact Attention: Poor Concentration: Poor Association: Loose Fund of Knowledge: Poor - Mood Mood: Depressed, Anxious - Affect Affect: Flat - Formal Thought Process Formal Thought Process: Other (preoccupied) - Suicidal Ideation Suicidal Ideation: No - Homicidal Ideation Homicidal Ideation: No Goal/Treatment Plan - Goal/Treatment Plan Need for Continued Stay: Remain at risks for inpatient hospitalization, Severe depression anxiety, Discharge may exacerbated symptoms, Severe functional impairment Progress Toward Problem(s) and Goals/Treatment Plan: Milieu/structure/supportive therapy Medical consult appreciated neurology consult called consultation for discharge plan and social issues Med management meds confirmed risperdal 0.5mg po amhs for confusion lexapro 20mg po daily xanax 0.5mg po qid for anxiety Family involvement Follow up on labs Will monitor closely Pt was educated about risk/benefits and alternatives of medications, coping strategies (safety plan, suicide prevention), relapse prevention, importance of follow up with psychiatrist and therapist, stay away from drugs/alcohol/smoking possible ECT Estimated Date of D/C: 08/17/18
[2018-08-12] MEDS: Pantoprazole 40 mg EC Tab PO SCH ×2 (06:25→17:45)
[2018-08-12] MEDS: Omega-3-Acid Ethyl Esters 1 GM Cap PO SCH ×2 (09:27→17:45)
[2018-08-12] MEDS: Saliva Substitute 44.3 ML PO SCH ×3 (09:28→17:40)
--- NOTE | 2018-08-12 12:29 | PCM.PYCHPN ---
Psychiatric Progress Note - Psychiatric Progress Note Patient seen today, length of contact: 30 minutes Problems Identified/Issues Discussed: I reviewed assessment and met with patient at bedside today. She is alert and oriented to month, year and location. Patient reports her mood as "nervous" and she seems anxious, unsure and confused but presenting better than her prior admission in November of this year. Patient is preoccupied and a little vague though more focused with less rambling than before. Patient denies perceptual disturbance when directly questioned by this provider. Tolerating medications and denies any new physical discomfort or pain. She can tolerate interacting with other peers on the unit without any major behavioral issues. Diagnostic Results: as per h/o MDD MANDY r/o OCD Medication Change: No ( ) Medical Record Reviewed: Yes Mental Status Examination - Cognitive Function Orientation: Person, Place Memory: Intact Attention: Poor Concentration: Poor Association: Loose Fund of Knowledge: Poor - Mood Mood: Depressed, Anxious - Affect Affect: Flat - Formal Thought Process Formal Thought Process: Other (preoccupied) - Suicidal Ideation Suicidal Ideation: No - Homicidal Ideation Homicidal Ideation: No Goal/Treatment Plan - Goal/Treatment Plan Need for Continued Stay: Remain at risks for inpatient hospitalization, Severe depression anxiety, Discharge may exacerbated symptoms, Severe functional impairment Progress Toward Problem(s) and Goals/Treatment Plan: * c/w current tx and plan, possible ECT on the unit * Vitals reviewed and noted below: Selected Entries 08/10/18 08/10/18 08/11/18 07:32 16:00 07:46 Temperature 98.9 F 98.3 F Pulse Rate 85 74 74 Respiratory 20 20 Rate Blood Pressure 134/74 105/57 L 110/60 08/11/18 09:24 Temperature Pulse Rate Respiratory Rate Blood Pressure 110/60 Estimated Date of D/C: 08/17/18
--- NOTE | 2018-08-12 12:51 | PN ---
DATE: 08/12/2018 SUBJECTIVE: The patient is in [facility] Behavioral Care Unit. The patient is under the care of the physician of the Behavioral Care Unit, but she is followed up medically by I am covering for him today. The patient has medical history, she has history of mental disorder. She has hallucinations. She also has fear of the surroundings. She lives with her who has history of rheumatoid arthritis according to her story. She has history of hypertension. She also has history of hyperlipidemia and she has some ecchymosis in the skin, probably induced by aspirin. The patient has also vitamin D deficiency. The patient also has history of thyroid disorder. She is very pleasant in conversation. PHYSICAL EXAMINATION GENERAL: The patient is ambulating. VITAL SIGNS: Pulse is 83, blood pressure 134/63, the patient's respirations are 20 and O2 sat is 98% on room air. HEENT: Head is normocephalic. SKIN: Shows some blemishes and superficial scratches, on the left side and legs. The patient is concerned about psoriasis, I confirmed with her that, that is no psoriasis. LUNGS: Trachea is central. Breath sounds are vesicular. No adventitious sound. HEART: Normal sinus rhythm. S1, S2 present. EKG, normal sinus rhythm. ABDOMEN: Soft. Liver and spleen not palpable. CENTRAL NERVOUS SYSTEM: No focal deficits. MEDICATIONS: She is on Ativan for anxiety, Colace for constipation, vitamin D 50,000 units once a week. The patient gets aspirin 81 mg daily, Geodon p.r.n. for anxiety, also agitation. The patient is on Lipitor 40 mg daily. She takes Lovaza 1 g b.i.d., that is to lower the triglycerides and fish oil. The patient is on amlodipine 2.5 mg daily. The x-rays of the head, CAT scan, MRI are not contributory to diagnosis. The patient's thyroid studies by ultrasound shows multiple nodules. She is pending some further evaluation, probably needle biopsy of the thyroid nodule and scan. The patient's chest x-ray as mentioned was clear. LABORATORY DATA: Hemoglobin of 12.7. The patient's chemistry is pretty much unremarkable. The BUN is slightly elevated. The lipid levels are not present. Procalcitonin level is ordered, but also negative. ASSESSMENT AND PLAN: The patient has clinical symptoms of dementia and she also has severe anxiety. She has goiter with multiple nodules in the thyroid. She has hyperlipidemia, hypertension. We will follow up medically. The patient's condition seemed to be clinically stable at this time. Roger Fox MD
[2018-08-13] MEDS: Omega-3-Acid Ethyl Esters 1 GM Cap PO SCH ×2 (08:13→15:16)
[2018-08-13] MEDS: Saliva Substitute 44.3 ML PO SCH ×3 (08:16→17:03)
[2018-08-13] MEDS: Pantoprazole 40 mg EC Tab PO SCH ×2 (08:16→15:16)
--- NOTE | 2018-08-13 09:56 | PCM.PYCHPN ---
Psychiatric Progress Note - Psychiatric Progress Note Patient seen today, length of contact: 30 minutes Problems Identified/Issues Discussed: I reviewed recent notes and met with patient in the hallway today. She is alert and oriented to month, year and location. Patient reports her mood as "nervous" and she seems anxious, unsure and confused but presenting better than her prior admission in November of this year. Patient is preoccupied and a little vague though more focused with less rambling than before. Still repetitive and sometimes talks for the sake of talking and not necessarily to communicate. Patient denies perceptual disturbance when directly questioned by this provider. Tolerating medications and denies any new physical discomfort or pain though worries constantly about her health issues despite much education and reassurance by staff. She can be friendly and warm with other patients. There have been no behavioral issues in this regard. Diagnostic Results: as per h/o MDD MANDY r/o OCD Medication Change: No ( ) Medical Record Reviewed: Yes Mental Status Examination - Cognitive Function Orientation: Person, Place Memory: Intact Attention: Poor Concentration: Poor Association: Loose Fund of Knowledge: Poor - Mood Mood: Depressed, Anxious - Affect Affect: Flat - Formal Thought Process Formal Thought Process: Other (preoccupied) - Suicidal Ideation Suicidal Ideation: No - Homicidal Ideation Homicidal Ideation: No Goal/Treatment Plan - Goal/Treatment Plan Need for Continued Stay: Remain at risks for inpatient hospitalization, Severe depression anxiety, Discharge may exacerbated symptoms, Severe functional impairment Progress Toward Problem(s) and Goals/Treatment Plan: * c/w current tx and plan, possible ECT on the unit * Appreciate f/u by Dr. Fox on 08/12/18~no new recommendations, to f/u * Vitals reviewed and noted below: 08/12/18 07:33 Temperature 98.0 F Pulse Rate 83 Respiratory 20 Rate Blood Pressure 134/63 * No new lab results this weekend Estimated Date of D/C: 08/17/18
--- NOTE | 2018-08-13 10:31 | PN ---
DATE: 08/13/2018 SUBJECTIVE: The patient is in [facility], Behavioral Care Unit, room 590. The patient is admitted with depression. The patient has history of hypertension and rheumatoid arthritis. The patient has history of skin rash. The patient is complaining of symptoms suggestive of hallucination, tactile and auditory. PHYSICAL EXAMINATION: VITAL SIGNS: Blood pressure is 134/60, respirations are 20 per minute, the patient's O2 sat is 98% and pulse is 83. LUNGS: Clear. HEART: Normal sinus rhythm. ABDOMEN: Soft. Liver and spleen not palpable. CENTRAL NERVOUS SYSTEM: No focal deficit. The patient cooperative. LABORATORY DATA: All ancillary studies done during the hospital stay so far, has not been contributory. The patient has thyroid condition with multiple nodules in both thyroids and she is waiting some evaluation to be done, scan of thyroid to rule out any nodules. Current condition, the patient is stable, overall prognosis is guarded. We will follow up. Roger Fox MD
[2018-08-13 11:20] LABS: GLYCOMARK(R) 20.3 mcg/mL (7.5-28.4)
[2018-08-14] MEDS: Pantoprazole 40 mg EC Tab PO SCH ×2 (06:20→16:45)
[2018-08-14] MEDS: Omega-3-Acid Ethyl Esters 1 GM Cap PO SCH ×2 (09:10→16:46)
[2018-08-14] MEDS: Saliva Substitute 44.3 ML PO SCH ×3 (09:12→18:46)
--- NOTE | 2018-08-14 10:52 | PCM.PYCHPN ---
Psychiatric Progress Note - Psychiatric Progress Note Patient seen today, length of contact: 30 minutes Problems Identified/Issues Discussed: I reviewed recent notes and interviewed patient in the dayroom today. She remains alert and oriented to month, year and location. Patient reports her mood as "nervous" and she seems anxious, unsure and confused at times but presenting better than at admission as well as better than her prior admission in November of this year. At that times she was overtly disorganized with poor impulse control and orientation. Patient is preoccupied and a little vague though more focused with less rambling than before. She worries a lot about her health and it is difficult to reassure or redirect her, she brings her up her thyroid nodules multiple times during the course of our conversation. Patient denies perceptual disturbance when directly questioned by this provider. Tolerating medications and denies any new physical discomfort or pain. She can tolerate interacting with other peers on the unit without any major behavioral issues and has been socializing at times. She also goes to peers for reassurance. Diagnostic Results: as per h/o MDD MANDY r/o OCD Medication Change: No ( ) Medical Record Reviewed: Yes Mental Status Examination - Cognitive Function Orientation: Person, Place Memory: Intact Attention: Poor Concentration: Poor Association: Loose Fund of Knowledge: Poor - Mood Mood: Depressed, Anxious - Affect Affect: Other (anxious) - Speech Speech: Appropriate - Formal Thought Process Formal Thought Process: Loosening of associations, Other (preoccupied, repetitive) - Suicidal Ideation Suicidal Ideation: No - Homicidal Ideation Homicidal Ideation: No Goal/Treatment Plan - Goal/Treatment Plan Need for Continued Stay: Remain at risks for inpatient hospitalization, Severe depression anxiety, Discharge may exacerbated symptoms, Severe functional impairment Progress Toward Problem(s) and Goals/Treatment Plan: * c/w current tx and plan, possible ECT on the unit * Appreciate f/u by Dr. Fox on 08/13/18~patient to have thyroid nodules evaluated * Vitals reviewed and noted below: Selected Entries 08/13/18 08/13/18 08/13/18 07:00 08:13 17:28 Temperature 97.8 F Pulse Rate 68 73 Respiratory 18 Rate Blood Pressure 130/78 130/78 115/61 * No new floor lab results noted Estimated Date of D/C: 08/17/18
--- NOTE | 2018-08-14 11:29 | PN ---
DATE: 08/14/2018 SUBJECTIVE: The patient is in room 519, bed 1. The patient is seen on the psychiatry floor and in the room. Overnight nurse's notes were reviewed for the last 24 hours. The patient still having episodic anxiety and episodes of depression and concerned about her overall health status and requesting to be discharged. The patient states that she is sleeping better. The patient denies any auditory, visual hallucination. Denies any suicidal, homicidal ideation. OBJECTIVE: VITAL SIGNS: T-max 97.8, pulse 73-81, blood pressure 130/69, respirations 18, O2 sat not documented. HEENT: Head: Normocephalic, atraumatic. HEENT examination shows pinkish conjunctivae. Anicteric sclerae, dry oral mucosa. NECK: No neck rigidity. CHEST: Kyphosis. LUNGS: Shows no audible crackle, rales or wheezing. CARDIOVASCULAR: S1, S2, regular rhythm. ABDOMEN: Soft. Positive bowel sounds. No palpable hepatosplenomegaly noted. GENITALIA: Female. RECTAL: Deferred. EXTREMITIES: Shows no pitting edema, no calf tenderness, no Magaly's signs. NEUROLOGIC: The patient is alert, awake, responsive, is able to move upper and lower extremities without assistance. Gait examination is not tested. VASCULAR: Palpable pulses. Gait examination is independent. PSYCHIATRIC: As per the notes of the psychiatrist. The patient has been seen by the Psychiatry over the weekend and notes and recommendations were reviewed. DIAGNOSTIC DATA: None from today. IMPRESSION AND PLAN: 1. Acute exacerbation of anxiety and depression. 2. Possible obsessive compulsive disorder. 3. Multiple thyroid nodules, left more than the right with hypervascular solid thyroid nodules. 4. Hypertension. 5. Low-grade fever. 6.. Proteinuria, pyuria, bacteriuria, microscopic hematuria. 7. History of hyperlipidemia, hypertriglyceridemia. 8. History of hypertension. 9. Questionable memory dysfunction and cognitive impairment with episodic confusion and disorientation. 10. Hypertriglyceridemia. 11. Hyperlipidemia. PLAN: Plan at this time, the patient is to be continued on above therapeutic intervention as per the MAR of today which was reviewed. The patient was seen by the psychiatrist. There is a possible consideration for an ECT therapy. At present, we are awaiting for evaluation by Dr. Randal Booth for thyroid nodule biopsy. Dictated and electronically signed, not read. Massimo Khan MD [facility] # [id number]
--- NOTE | 2018-08-14 18:43 | PN ---
DATE: 08/14/2018 I reviewed the patient's thyroid ultrasound performed on this admission. There appear to be confluent heterogenous nodules involved in the lower pole bilaterally. Nodules are larger on the left. No calcification is appreciated. The nodules are mildly vascular. The patient was admitted for anxiety and depression. TFT's have been checked. She may benefit from a thyroid scan to see if either nodules are hypoactive. Certainly, a fine needle aspiration in the left can be performed on an outpatient basis. If the patient is against further treatment, a follow up ultrasound in 6-12 months is recommended. Randal Booth MD MTDD
[2018-08-15] MEDS: Pantoprazole 40 mg EC Tab PO SCH ×2 (06:10→18:16)
[2018-08-15 06:34] LABS: PH,URINE 6.5 (4.7-8.0); URINE BILIRUBIN NEGATIVE (NEGATIVE); URINE BLOOD SMALL (NEGATIVE); URINE GLUCOSE (UA) NEGATIVE (NEGATIVE); URINE LEUKOCYTE ESTERASE TRACE Leu/uL (NEGATIVE); URINE PROTEIN NEGATIVE mg/dL (<30 mg/dL); URINE UROBILINOGEN 0.2 E.U./dL (<1 E.U./dL)
[2018-08-15 06:36] LABS: URINE APPEARANCE CLEAR (CLEAR); URINE COLOR STRAW (YELLOW)
[2018-08-15 06:50] LABS: URINE BACTERIA OCC (NEG); URINE RBC 0 - 2 /hpf (0-2)
[2018-08-15 07:15] VITALS: RESP 20
[2018-08-15] MEDS: Omega-3-Acid Ethyl Esters 1 GM Cap PO SCH ×2 (09:44→18:16)
[2018-08-15] MEDS: Saliva Substitute 44.3 ML PO SCH ×3 (09:48→18:17)
--- NOTE | 2018-08-15 11:02 | PCM.PYCHPN ---
Psychiatric Progress Note - Psychiatric Progress Note Patient seen today, length of contact: 30 minutes Patient Chief Complaint: "I am confused, I do not know what questions today are asked " Problems Identified/Issues Discussed: Suicide/ homicide prevention, past psychiatric h/o, current psychiatric symptoms, medical problems, risk/benefits and alternatives of medications, medications compliance, coping strategies, substance abuse h/o, relapse prevention, importance of follow up with psychiatrist and therapist, discharge plan. Medical Problems: Please see Dr. Khan's note for more detailed information Diagnostic Results: 08/10/18 07:30 08/10/18 07:30 Lab Results 08/10/18 07:30: Sodium 136, Potassium 3.1 L, Chloride 94 L, Carbon Dioxide 30, Anion Gap 14, BUN 30 H, Creatinine 1.2, Est GFR ( Amer) 55, Est GFR (Non- Af Amer) 45, Random Glucose 154 H, Calcium 9.2, Phosphorus 3.7, Magnesium 2.1, Total Bilirubin 1.1, Direct Bilirubin 0.2, AST 33, ALT 41, Alkaline Phosphatase 60, Total Protein 7.9, Albumin 4.5, Globulin 3.4, Albumin/Globulin Ratio 1.3 08/10/18 07:30: WBC 7.8 D, RBC 4.33, Hgb 13.6, Hct 41.7, MCV 96.3, MCH 31.4, MCHC 32.6, RDW 13.4, Plt Count 215, MPV 10.0, Gran % 63.5, Lymph % (Auto) 21.1 L , [place] % (Auto) 9.5 H, Eos % (Auto) 5.8 H, Baso % (Auto) 0.1, Gran # 4.95, Lymph # (Auto) 1.6, [place] # (Auto) 0.7 H, Eos # (Auto) 0.5, Baso # (Auto) 0.01 08/09/18 08:47: Total T3 1.35 08/09/18 08:47: Free T3 pg/mL 3.53 08/09/18 08:27: WBC 14.7 H D, RBC 4.52, Hgb 14.5, Hct 43.5, MCV 96.2, MCH 32.1, MCHC 33.3, RDW 13.3, Plt Count 203, MPV 10.0, Gran % 90.0 H, Lymph % (Auto) 4.6 L, [place] % (Auto) 5.2, Eos % (Auto) 0.1 L, Baso % (Auto) 0.1, Gran # 13.26 H, Lymph # (Auto) 0.7 L, [place] # (Auto) 0.8 H, Eos # (Auto) 0.0, Baso # (Auto) 0.01, Neutrophils % (Manual) 88 H, Band Neutrophils % 1, Lymphocytes % (Manual) 7 L, Monocytes % (Manual) 4, Platelet Evaluation Normal 08/09/18 08:25: Procalcitonin < 0.05 L, Lyme Disease IgG Ab (IFA) Negative, Lyme Disease IgM Ab Negative 08/09/18 08:24: Fructosamine 251 08/09/18 06:20: RPR Nonreactive 08/09/18 06:20: Fasting Glucose 93, Triglycerides 97, Cholesterol 154, LDL Cholesterol Direct 79, HDL Cholesterol 56 08/09/18 06:00: Free T4 1.46, Thyroxine (T4) 10.4, TSH 3rd Generation 0.29 L 08/09/18 06:00: 25-OH Vitamin D Total 28.3 L 08/09/18 06:00: Hemoglobin A1c 5.5 08/08/18 13:10: Alcohol, Quantitative < 10 08/08/18 13:10: Salicylates < 1 L, Acetaminophen < 10.0 L 08/08/18 13:10: Urine Opiates Screen Negative, Urine Methadone Screen Negative, Ur Barbiturates Screen Negative, Ur Phencyclidine Scrn Negative, Ur Amphetamines Screen Negative, U Benzodiazepines Scrn Positive H, U Oth Cocaine Metabols Negative, U Cannabinoids Screen Negative 08/08/18 13:10: Sodium 140, Potassium 4.8, Chloride 99, Carbon Dioxide 32, Anion Gap 14, BUN 15, Creatinine 0.7, Est GFR ( Amer) > 60, Est GFR (Non-Af Amer) > 60, Random Glucose 122 H, Calcium 10.3, Magnesium 2.1, Total Bilirubin 1.2, AST 35, ALT 44, Alkaline Phosphatase 69, Total Creatine Kinase 64, Total Protein 8.3, Albumin 4.8, Globulin 3.6, Albumin/Globulin Ratio 1.3 08/08/18 13:10: Urine Color Yellow, Urine Appearance Sl cloudy, Urine pH 5.5, Ur Specific [place] >= 1.030, Urine Protein Trace H, Urine Glucose (UA) Negative, U rine Ketones Negative, Urine Blood Large H, Urine Nitrate Negative, Urine B ilirubin Negative, Urine Urobilinogen 0.2, Ur Leukocyte Esterase Moderate H, Urine RBC 0 - 2, Urine WBC 25 - 30, Ur Epithelial Cells 4 - 5, Urine Bacteria Small 08/08/18 13:10: WBC 9.0, RBC 4.52, Hgb 14.2 D, Hct 44.3, MCV 98.0, MCH 31.4, MCHC 32.1, RDW 13.5, Plt Count 245, MPV 10.5, Gran % 63.4, Lymph % (Auto) 25.1, [place] % (Auto) 10.4 H, Eos % (Auto) 0.9 L, Baso % (Auto) 0.2, Gran # 5.73, Lymph # (Auto) 2.3, [place] # (Auto) 0.9 H, Eos # (Auto) 0.1, Baso # (Auto) 0.02 Vital Signs Temp Pulse Pulse Pulse Resp BP Pulse Ox 08/10/18 08:45 134/74 08/10/18 07:32 98.9 F 85 20 134/74 08/09/18 16:40 99.3 F 08/09/18 16:18 85 136/65 08/09/18 10:53 99.9 F H 08/09/18 09:14 99.7 F H 08/09/18 08:31 144/61 08/09/18 08:28 99.9 F H 08/09/18 07:15 99.9 F H 90 20 144/61 08/08/18 23:15 69 69 18 08/08/18 18:25 98.0 F 78 18 122/78 98 08/08/18 14:31 98.0 F 74 16 141/72 98 MRI showed no acute intracranial findings it was done on 08/09/2018 Thyroid ultrasonogram was done 08/09/2018 multiple bilateral thyroid nodules, the largest are on the left lobe, there are solid nodules which are hyper vascular recommendations for follow-up: radionuclear scan to assess thyroid function Fine-needle aspiration showed also be considered Chest x-ray was within normal limits EKG showed normal sinus rhythm with normal EKG 08/09/2018 DSM 5 Symptoms Update: Patient is a 62 year old female with a history of depression and anxiety (likely MANDY and Panic Disorder), one prior psychiatric admissions to this facility for anxiety and depression this year, in psychiatric treatment with Dr. Dumont and reportedly compliant with medications, who presented to our ER with her spouse yesterday 08/08/18 for a psychiatric evaluation and admission as per recommendation. in ED pt presented to be depressed, mildly paranoid, guarded. Patient was seen next to the nursing station with medical students, patient presented with acceptable personal hygiene, patient is repetitive, fixated on thyroid nodules, patient reported that she feels "anxious, I do not know what to do". A lot of support and encouragement as well as education took place today, patient was advised to speak to the primary care team , patient was keeps coming back with the same questions over and over again, medical student health patient to come up with questions for medical team. Overall patient presented better, patient was less drowsy, was able to hold conversation, was able to stay focused. Patient reported that she slept well, denied being depressed, patient was fixated with her "nervousness, thyroid nodules". 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 As per staff patient is mildly anxious, no agitation, no aggression, compliant with her medications. Patient signed power of civil rights attorney 08/10/2018, patient reported her to be her POA. Patient was educated about the risk, benefits, alternatives of all of the medications. So far patient tolerates medications well, no side effects observed or reported, AIMS 0, no EPS. discussed with ECT might be helpful. Impression: DSM 5 Diagnosis: as per h/o MDD MANDY r/o OCD Medication Change: No ( ) Medical Record Reviewed: Yes Consults ordered or reviewed: Dr. Khan consultation appreciated See note for more detailed information Mental Status Examination - Cognitive Function Orientation: Person, Place Memory: Intact Attention: Poor Concentration: Poor Association: Loose Fund of Knowledge: Poor - Mood Mood: Depressed, Anxious - Affect Affect: Other (anxious) - Speech Speech: Appropriate - Formal Thought Process Formal Thought Process: Loosening of associations, Other (preoccupied, repetitive) - Suicidal Ideation Suicidal Ideation: No - Homicidal Ideation Homicidal Ideation: No Goal/Treatment Plan - Goal/Treatment Plan Need for Continued Stay: Remain at risks for inpatient hospitalization, Severe depression anxiety, Discharge may exacerbated symptoms, Severe functional impairment Progress Toward Problem(s) and Goals/Treatment Plan: Milieu/structure/supportive therapy Medical consult appreciated neurology consult called consultation for discharge plan and social issues Med management meds confirmed risperdal 0.5mg po amhs for confusion lexapro 20mg po daily xanax 0.5mg po qid for anxiety Family involvement Follow up on labs Will monitor closely Pt was educated about risk/benefits and alternatives of medications, coping strategies (safety plan, suicide prevention), relapse prevention, importance of follow up with psychiatrist and therapist, stay away from drugs/alcohol/smoking possible ECT Family meeting will be scheduled on Tuesday, August 17, 2018 with patient's Estimated Date of D/C: 08/17/18
--- NOTE | 2018-08-15 11:15 | PN ---
DATE: 08/15/2018 LOCATION: Room 519 in Psychiatry floor. SUBJECTIVE: Overnight nurse's notes were reviewed. According to the nurse's notes, the patient is having recurrent anxiety episodes and panicky episodes. The patient is concerned about urinary tract infection, though the patient's more than two urine cultures are negative for any urinary tract infection and the patient was also treated with p.o. antibiotics for 3 to 4 days. The patient is also concerned about her thyroid nodules. Yesterday, I had an extensive discussion with the patient regarding the thyroid nodules. I have explained to the patient in layman's language about the significance of the thyroid nodules and possible need for biopsy versus thyroid scan depending upon the recommendation by the Interventional Radiology, Dr. Randal Booth. The patient was advised that the thyroid nodule biopsy can be done as an outpatient if the biopsy is not done during this hospitalization, which was explained to the patient in layman's language and all questions concerned answered. PHYSICAL EXAMINATION: VITAL SIGNS: T-max 98.4, heart rate 80 to 87, blood pressure 126/70 and 130/69, respirations 20. HEENT: Head: Normocephalic, atraumatic. HEENT examination shows pink conjunctivae. Anicteric sclerae. No oropharyngeal lesion. No neck rigidity. CHEST: Kyphosis. LUNGS: No audible crackle, rales or wheezing. ABDOMEN: Soft. Positive bowel sounds. GENITALIA: Female. RECTAL: Deferred. EXTREMITIES: No pitting edema, no calf tenderness, no Homans sign. NEUROLOGIC: The patient is alert, awake, responsive, ambulating independently. Cranial nerves II through XII intact and limited. MUSCULOSKELETAL: As per the body mass index. VASCULAR: Palpable pulses. IMPRESSION: 1. Persistent recurrent, severe, acute exacerbation of anxiety, depression and panic disorder. 2. Bilateral thyroid nodules, left more than the right, with hypervascular thyroid nodules. 3. Questionable possible subclinical hyperthyroidism with decreased thyroid-stimulating hormone. 4. Hypertension. 5. Pyuria. 6. Proteinuria. 7. Hyperlipidemia. 8. Hypertriglyceridemia. 9. Hypovitaminosis D. 10. Questionable and possible obsessive-compulsive disorder. PLAN: At this time, the patient was seen by the Interventional Radiology, Dr. Randal Booth. The recommendations are to get a thyroid scan to evaluate for possibility of cold and hot nodules and then consider possibility of thyroid nodule biopsy, which was again reinforced to the patient at length. At present, the patient is to be continued on the Psychiatry floor with continuation of the medications as per the MAR of the today which includes Ativan, Geodon, Xanax. Also includes Lipitor, Lovaza and Drisdol which needs to be continued. The patient will be followed closely while the patient is on the Psychiatry floor. The patient's thyroid scan has been ordered. The results will be reviewed when available. Dictated and electronically signed, not read. Massimo Khan MD
[2018-08-15] MEDS: Ergocalciferol 50,000 Intl Units Cap PO SCH (22:41)
[2018-08-16] MEDS: Pantoprazole 40 mg EC Tab PO SCH ×2 (07:16→16:40)
[2018-08-16] MEDS: Saliva Substitute 44.3 ML PO SCH ×3 (08:21→18:53)
[2018-08-16] MEDS: Omega-3-Acid Ethyl Esters 1 GM Cap PO SCH ×2 (08:22→16:40)
--- NOTE | 2018-08-16 15:55 | PCM.PYCHPN ---
Psychiatric Progress Note - Psychiatric Progress Note Patient seen today, length of contact: 30 minutes Patient Chief Complaint: "I feel better, I am ready to go tomorrow" Problems Identified/Issues Discussed: Suicide/ homicide prevention, past psychiatric h/o, current psychiatric symptoms, medical problems, risk/benefits and alternatives of medications, medications compliance, coping strategies, substance abuse h/o, relapse prevention, importance of follow up with psychiatrist and therapist, discharge plan. Medical Problems: Please see Dr. Khan's note for more detailed information Diagnostic Results: 08/10/18 07:30 08/10/18 07:30 Lab Results 08/10/18 07:30: Sodium 136, Potassium 3.1 L, Chloride 94 L, Carbon Dioxide 30, Anion Gap 14, BUN 30 H, Creatinine 1.2, Est GFR ( Amer) 55, Est GFR (Non- Af Amer) 45, Random Glucose 154 H, Calcium 9.2, Phosphorus 3.7, Magnesium 2.1, Total Bilirubin 1.1, Direct Bilirubin 0.2, AST 33, ALT 41, Alkaline Phosphatase 60, Total Protein 7.9, Albumin 4.5, Globulin 3.4, Albumin/Globulin Ratio 1.3 08/10/18 07:30: WBC 7.8 D, RBC 4.33, Hgb 13.6, Hct 41.7, MCV 96.3, MCH 31.4, MCHC 32.6, RDW 13.4, Plt Count 215, MPV 10.0, Gran % 63.5, Lymph % (Auto) 21.1 L , [place] % (Auto) 9.5 H, Eos % (Auto) 5.8 H, Baso % (Auto) 0.1, Gran # 4.95, Lymph # (Auto) 1.6, [place] # (Auto) 0.7 H, Eos # (Auto) 0.5, Baso # (Auto) 0.01 08/09/18 08:47: Total T3 1.35 08/09/18 08:47: Free T3 pg/mL 3.53 08/09/18 08:27: WBC 14.7 H D, RBC 4.52, Hgb 14.5, Hct 43.5, MCV 96.2, MCH 32.1, MCHC 33.3, RDW 13.3, Plt Count 203, MPV 10.0, Gran % 90.0 H, Lymph % (Auto) 4.6 L, [place] % (Auto) 5.2, Eos % (Auto) 0.1 L, Baso % (Auto) 0.1, Gran # 13.26 H, Lymph # (Auto) 0.7 L, [place] # (Auto) 0.8 H, Eos # (Auto) 0.0, Baso # (Auto) 0.01, Neutrophils % (Manual) 88 H, Band Neutrophils % 1, Lymphocytes % (Manual) 7 L, Monocytes % (Manual) 4, Platelet Evaluation Normal 08/09/18 08:25: Procalcitonin < 0.05 L, Lyme Disease IgG Ab (IFA) Negative, Lyme Disease IgM Ab Negative 08/09/18 08:24: Fructosamine 251 08/09/18 06:20: RPR Nonreactive 08/09/18 06:20: Fasting Glucose 93, Triglycerides 97, Cholesterol 154, LDL Cholesterol Direct 79, HDL Cholesterol 56 08/09/18 06:00: Free T4 1.46, Thyroxine (T4) 10.4, TSH 3rd Generation 0.29 L 08/09/18 06:00: 25-OH Vitamin D Total 28.3 L 08/09/18 06:00: Hemoglobin A1c 5.5 08/08/18 13:10: Alcohol, Quantitative < 10 08/08/18 13:10: Salicylates < 1 L, Acetaminophen < 10.0 L 08/08/18 13:10: Urine Opiates Screen Negative, Urine Methadone Screen Negative, Ur Barbiturates Screen Negative, Ur Phencyclidine Scrn Negative, Ur Amphetamines Screen Negative, U Benzodiazepines Scrn Positive H, U Oth Cocaine Metabols Negative, U Cannabinoids Screen Negative 08/08/18 13:10: Sodium 140, Potassium 4.8, Chloride 99, Carbon Dioxide 32, Anion Gap 14, BUN 15, Creatinine 0.7, Est GFR ( Amer) > 60, Est GFR (Non-Af Amer) > 60, Random Glucose 122 H, Calcium 10.3, Magnesium 2.1, Total Bilirubin 1.2, AST 35, ALT 44, Alkaline Phosphatase 69, Total Creatine Kinase 64, Total Protein 8.3, Albumin 4.8, Globulin 3.6, Albumin/Globulin Ratio 1.3 08/08/18 13:10: Urine Color Yellow, Urine Appearance Sl cloudy, Urine pH 5.5, Ur Specific [place] >= 1.030, Urine Protein Trace H, Urine Glucose (UA) Negative, Urine Ketones Negative, Urine Blood Large H, Urine Nitrate Negative, Urine Bilirubin Negative, Urine Urobilinogen 0.2, Ur Leukocyte Esterase Moderate H, Urine RBC 0 - 2, Urine WBC 25 - 30, Ur Epithelial Cells 4 - 5, Urine Bacteria Small 08/08/18 13:10: WBC 9.0, RBC 4.52, Hgb 14.2 D, Hct 44.3, MCV 98.0, MCH 31.4, MCHC 32.1, RDW 13.5, Plt Count 245, MPV 10.5, Gran % 63.4, Lymph % (Auto) 25.1, [place] % (Auto) 10.4 H, Eos % (Auto) 0.9 L, Baso % (Auto) 0.2, Gran # 5.73, Lymph # (Auto) 2.3, [place] # (Auto) 0.9 H, Eos # (Auto) 0.1, Baso # (Auto) 0.02 Vital Signs Temp Pulse Pulse Pulse Resp BP Pulse Ox 08/10/18 08:45 134/74 08/10/18 07:32 98.9 F 85 20 134/74 08/09/18 16:40 99.3 F 08/09/18 16:18 85 136/65 08/09/18 10:53 99.9 F H 08/09/18 09:14 99.7 F H 08/09/18 08:31 144/61 08/09/18 08:28 99.9 F H 08/09/18 07:15 99.9 F H 90 20 144/61 08/08/18 23:15 69 69 18 08/08/18 18:25 98.0 F 78 18 122/78 98 08/08/18 14:31 98.0 F 74 16 141/72 98 MRI showed no acute intracranial findings it was done on 08/09/2018 Thyroid ultrasonogram was done 08/09/2018 multiple bilateral thyroid nodules, the largest are on the left lobe, there are solid nodules which are hyper vascular recommendations for follow-up: radionuclear scan to assess thyroid function Fine-needle aspiration showed also be considered Chest x-ray was within normal limits EKG showed normal sinus rhythm with normal EKG 08/09/2018 DSM 5 Symptoms Update: Patient is a 62 year old female with a history of depression and anxiety (likely MANDY and Panic Disorder), one prior psychiatric admissions to this facility for anxiety and depression this year, in psychiatric treatment with Dr. Dumont and reportedly compliant with medications, who presented to our ER with her spouse yesterday 08/08/18 for a psychiatric evaluation and admission as per recommendation. in ED pt presented to be depressed, mildly paranoid, guarded. Patient was seen today at the treatment team meeting, patient presented to be c renita and cooperative, still repetitive, patient was asking all over and over the same question about biopsy of the thyroid, patient was educated about plan for scan of her thyroid tomorrow, patient verbalized understanding, but came back to the same room 3 times to clarify. Overall patient reported that she feels "much better", patient denied feeling depressed, but mildly anxious, patient is looki ng forward for family meeting tomorrow with her . Patient reported that she has good appetite and sleep, was concerned about her appearance, patient has some hair on her chin , patient said "I need to shave". Patient was able to smile, make jokes, overall presented very well. As per staff patient is mildly anxious, no agitation, no aggression, compliant with her medications. Patient signed power of machine chain maker 08/10/2018, patient reported her to be her POA. Patient was educated about the risk, benefits, alternatives of all of the medications. So far patient tolerates medications well, no side effects observed or reported, AIMS 0, no EPS. discussed with ECT might be helpful for the future but not now. Impression: DSM 5 Diagnosis: as per h/o MDD MANDY r/o OCD Medication Change: Yes (Risperdal increased) Medical Record Reviewed: Yes Consults ordered or reviewed: Dr. Khan consultation appreciated See note for more detailed information 08/14/2018 patient was consulted by Dr. Randal Booth, impression that patient might benefit from a thyroid scan to see if either nodules are hypoactive, a fine needle aspiration could be done as outpatient, in case patient is against further treatment a follow-up ultrasound in 6-12 months is recommended. Mental Status Examination - Cognitive Function Orientation: Person, Place Memory: Intact Attention: Poor (Some improvement) Concentration: Poor (Some improvement) Association: Loose (Some improvement) Fund of Knowledge: WNL - Mood Mood: Depressed ("I feel better"), Anxious (Very mild) - Affect Affect: Constricted (Affect was more reactive and mood congruent), Other (anxious) - Speech Speech: Appropriate - Formal Thought Process Formal Thought Process: Other (preoccupied, repetitive) - Suicidal Ideation Suicidal Ideation: No - Homicidal Ideation Homicidal Ideation: No Goal/Treatment Plan - Goal/Treatment Plan Need for Continued Stay: Remain at risks for inpatient hospitalization, Severe depression anxiety, Discharge may exacerbated symptoms, Severe functional impairment Progress Toward Problem(s) and Goals/Treatment Plan: Milieu/structure/supportive therapy Medical consult appreciated neurology consult called SW consultation for discharge plan and social issues Med management meds confirmed risperdal 0.5mg po am 1mg po hs for confusion lexapro 20mg po daily xanax 0.5mg po qid for anxiety Family involvement Follow up on labs Will monitor closely Pt was educated about risk/benefits and alternatives of medications, coping strategies (safety plan, suicide prevention), relapse prevention, importance of follow up with psychiatrist and therapist, stay away from drugs/alcohol/smoking possible ECT Family meeting will be scheduled on Tuesday, August 17, 2018 with patient's Estimated Date of D/C: 08/17/18
--- NOTE | 2018-08-16 15:57 | PN ---
DATE: 08/16/2018 SUBJECTIVE: The patient is seen ambulating in the hallway in the psychiatry floor. The patient was seen in the dayroom. The patient was examined in the patient's room in 419. The patient has been alert, awake, responsive. Overnight nurse's notes were reviewed. The patient was still preoccupied and anxious. The patient was seen by the social science professor. The patient is under the impression that the patient might be going home tomorrow. PHYSICAL EXAMINATION: VITAL SIGNS: T-max 98.5, pulse 77, blood pressure 126/67, 114/54, respiration 20, O2 sat is 98%. HEAD: Normocephalic, atraumatic. HEENT: Shows pink conjunctivae. Anicteric sclerae. No oropharyngeal lesion. NECK: No neck rigidity. CHEST: Kyphosis. LUNGS: Examination shows no audible crackle, rales, wheezing. CARDIOVASCULAR: S1, S2 regular rhythm. No audible murmur, gallop or rub. ABDOMEN: Soft. Positive bowel sounds. No palpable hepatosplenomegaly. No guarding, rigidity. No rebound tenderness. No costovertebral angle tenderness. GENITALIA: Female. RECTAL: Examination deferred. EXTREMITY: Shows no pitting edema, no calf tenderness. No Homans' sign. NEUROLOGIC: Neurologically, the patient is alert, awake, responsive. Motor strength is 5/5 in upper and lower extremity. Gait examination is independent. Vascular: Examination palpable pulses. Plantars are downward. DTRs at 2+. PSYCHIATRIC: Examination is as per Psychiatry evaluation. IMPRESSION: 1. Acute exacerbation of anxiety and depression. 2. Possible obsessive-compulsive disorder. 3 Episodic confusion and disorientation. 4. Generalized anxiety disorder. 5. Major depression. 6. Questionable obsessive compulsive disorder. 7. Multiple bilateral thyroid nodules, left more than the right with hypervascular solid thyroid nodules. 8. Hypovitaminosis D. 9. Depression. 10. Hyperlipidemia, hypertriglyceridemia. 11. Anxiety disorder. PLAN: Plan at this time, the patient has been ordered a thyroid scan which is still pending. The patient was seen by Randal Booth from Interventional Radiology, recommended that thyroid scan. The patient's current medications, Ativan 2 mg p.o every 6h. p.o. or IM every 6h. p.r.n. Colace 100 mg three times a day, Drisdol 50,000 units weekly, Ecotrin 81 mg daily, Geodon 20 mg p.o. or IM every six p.r.n., Lexapro 20 mg daily, Lipitor 40 mg daily, Lovaza 1 g twice a day, Maalox and milk of magnesia p.r.n., Norvasc 2.5 mg daily, Protonix 40 mg daily, Risperdal 0.5 mg a.m. and h.s. saliva substitute 5 mL three times a day, Tylenol p.o. suppository every six p.r.n., Xanax 0.5 mg 4 times a day. The patient's thyroid scan is pending. The patient seen by Dr. Randal Booth. The recommendation was noted and reinforced to the patient. The patient was advised that the patient can have thyroid nodule biopsy as an outpatient which she acknowledged to understand. At present, the patient will be continued to be closely followed while the patient is on Psychiatry floor. The patient was also advised close outpatient followup with the patient's PMD and Dr. Randal Booth for scheduling thyroid nodule biopsy. Dictated and electronically signed, not read. Massimo Khan MD
[2018-08-17] MEDS: Pantoprazole 40 mg EC Tab PO SCH (06:14)
[2018-08-17 07:08] VITALS: BP 115/64; PULSE 80; TEMP 99.8
[2018-08-17] MEDS: Omega-3-Acid Ethyl Esters 1 GM Cap PO SCH (09:50)
[2018-08-17] MEDS: Saliva Substitute 44.3 ML PO SCH (09:51)
--- NOTE | 2018-08-17 10:35 | PN ---
DATE: 08/17/2018 SUBJECTIVE: The patient is in room 519, bed 1. Overnight nurse's notes were reviewed. The patient was seen and evaluated by the social service agency director and the psychiatrist. The patient is for possible discharge today after family meeting with the . As per the psychiatrist and the social science analyst and the nurses, the patient will probably undergo a thyroid scan prior to discharge. OBJECTIVE: VITAL SIGNS: Noted. T-max 98.5 to 98.9, heart rate 80, blood pressure 115/64, respirations 20, O2 sat not documented. HEENT: Head: Examination normocephalic, atraumatic. HEENT examination shows pinkish conjunctivae. Anicteric sclerae. No oropharyngeal lesion. No neck rigidity. CHEST: Kyphosis. LUNGS: Shows no audible crackle, rales or wheezing. CARDIOVASCULAR: S1, S2, regular rhythm. No audible murmur, gallop or rub. ABDOMEN: Soft. Positive bowel sounds. No palpable hepatosplenomegaly noted. GENITALIA: Female. RECTAL: Deferred. EXTREMITIES: Shows no pitting edema, no calf tenderness, no Homans' sign. NEUROLOGIC: The patient is alert, awake, responsive, is able to ambulate independently without assistance. Gait examination is independent. VASCULAR: Palpable pulses. NEURO: Does not reveal any gross deficits. The patient is ambulating independently without assistance. PSYCHIATRIC: As per the Psychiatry evaluation. DIAGNOSTIC DATA None from today. The patient's thyroid scan is still pending. IMPRESSION AND PLAN: 1. Acute exacerbation of severe anxiety and depression. 2. History of anxiety and depression. 3 Possible obsessive compulsive disorder. 4. Multiple bilateral thyroid nodules that was on the right with hypervascular thyroid nodule. 5. History of hypertension, hyperlipidemia, hypertriglyceridemia, hypovitaminosis D. 6. Status post low grade fever. 7. History of multiple psychiatric inpatient psychiatric hospitalization. 8. Episodic disorientation and confusion (resolved). PLAN: Plan at this time, the patient is to be continued on the psychiatric medication which the patient is taking in the hospital at present. The patient is to be continued on statins and Lovaza. The patient should be continued on aspirin 81 mg p.o. daily. Thyroid scan has been ordered which can be done prior to the patient's discharge or which can also be done as an outpatient which has been explained to the patient. In addition, I have also advised the patient to follow up with her PMD or if the patient wishes to follow up with me, we can schedule outpatient thyroid nodule biopsy with Dr. Randal Booth as per his recommendation. The patient was also advised to release all records to her PMD in [place]. Dictated and electronically signed, not read. Massimo Khan MD
--- NOTE | 2018-08-17 12:18 | NM ---
Date of service: 08/17/2018 PROCEDURE: Nuclear medicine thyroid scan. HISTORY: THYROID NODULES COMPARISON: 08/09/2018 thyroid ultrasound TECHNIQUE: 300 uCi of the iodine 123 was administered orally. Frontal and oblique planar images of the thyroid gland were obtained. FINDINGS: Relative photon deficient area mid lower pole region corresponds to the areas of dominant nodules in the midpole and lower pole seen on recent ultrasound. The 24 hr thyroid uptake was 26.3 % (normal range 15-35%). IMPRESSION: 1. Abnormal accumulation of radionuclide in the left lobe primarily mid and lower pole regions corresponding to findings on recent thyroid ultrasound. Fine-needle aspiration biopsy strongly recommended. She 2. Normal 24 hr RAIU of 26.3%.
--- NOTE | 2018-08-17 16:22 | PCM.PYCHDC ---
Mental Status Examination - Mental Status Examination Orientation: Person, Place, Situation, Time Memory: Intact Mood: Neutral Affect: Broad (Reactive, congruent) Speech: Appropriate (Positive but much better compared with the time of admission) Attention: Poor (Improved) Concentration: Poor (Proved) Association: WNL (Better) Fund of Knowledge: WNL (Better) Formal Thought Process: No Impairment Description of patient's judgement and insight: Pt has improved insight into mental and medical illness, pt was compliant with medications and unit rules and regulations, pt was going to groups, was calm, cooperative, socially appropriate, no behavioral incidents, no agitation, no aggression. Psychotic Thoughts and Behaviors: Pt denied v/a/t hallucinations, denied paranoid ideations, pt does not appear to be psychotic, and thought process is goal directed. Suicidal Ideation: No Current Homicidal Ideation?: No Plan: pt adamantly denied thoughts of harming self or others denied intent or plan. Discharge Summary - Discharge Note Reason for Hospitalization: Pt was referred by , psychiatrist for psychiatric admission due to worsening of anxiety, inability to function and cognitive decline. Psychiatric History (includes Medical, Family, Personal Hx): see HPI Laboratory Data: 08/11/18 06:45 08/11/18 06:45 Lab Results 08/15/18 04:00: Urine Color Straw, Urine Appearance Clear, Urine pH 6.5, Ur Specific [place] <= 1.005, Urine Protein Negative, Urine Glucose (UA) Negative, Urine Ketones Negative, Urine Blood Small H, Urine Nitrate Negative, Urine Bilirubin Negative, Urine Urobilinogen 0.2, Ur Leukocyte Esterase Trace H, Urine RBC 0 - 2, Urine WBC 1 - 3, Ur Epithelial Cells 1 - 3, Urine Bacteria Occ 08/11/18 06:45: Sodium 136, Potassium 3.9, Chloride 101, Carbon Dioxide 31, Anion Gap 8 L, BUN 23 H, Creatinine 0.8, Est GFR ( Amer) > 60, Est GFR (Non-Af Amer) > 60, Random Glucose 106, Calcium 9.1, Phosphorus 3.4, Magnesium 2.2, Total Bilirubin 0.6, Direct Bilirubin 0.3, AST 32, ALT 43, Alkaline Phosphatase 50, Total Protein 6.7, Albumin 3.7, Globulin 3.0, Albumin/Globulin Ratio 1.2 08/11/18 06:45: WBC 6.2 D, RBC 4.01, Hgb 12.7, Hct 38.6, MCV 96.3, MCH 31.7, MCHC 32.9, RDW 13.7, Plt Count 182, MPV 10.0, Gran % 59.6, Lymph % (Auto) 20.0 L , Wheeler % (Auto) 13.3 H, Eos % (Auto) 6.8 H, Baso % (Auto) 0.3, Gran # 3.66, Lymph # (Auto) 1.2, Wheeler # (Auto) 0.8 H, Eos # (Auto) 0.4, Baso # (Auto) 0.02 08/10/18 07:30: Sodium 136, Potassium 3.1 L, Chloride 94 L, Carbon Dioxide 30, Anion Gap 14, BUN 30 H, Creatinine 1.2, Est GFR ( Amer) 55, Est GFR (Non- Af Amer) 45, Random Glucose 154 H, Calcium 9.2, Phosphorus 3.7, Magnesium 2.1, Total Bilirubin 1.1, Direct Bilirubin 0.2, AST 33, ALT 41, Alkaline Phosphatase 60, Total Protein 7.9, Albumin 4.5, Globulin 3.4, Albumin/Globulin Ratio 1.3 08/10/18 07:30: WBC 7.8 D, RBC 4.33, Hgb 13.6, Hct 41.7, MCV 96.3, MCH 31.4, MCHC 32.6, RDW 13.4, Plt Count 215, MPV 10.0, Gran % 63.5, Lymph % (Auto) 21.1 L , Wheeler % (Auto) 9.5 H, Eos % (Auto) 5.8 H, Baso % (Auto) 0.1, Gran # 4.95, Lymph # (Auto) 1.6, Wheeler # (Auto) 0.7 H, Eos # (Auto) 0.5, Baso # (Auto) 0.01 08/09/18 08:47: Total T3 1.35 08/09/18 08:47: Free T3 pg/mL 3.53 08/09/18 08:27: WBC 14.7 H D, RBC 4.52, Hgb 14.5, Hct 43.5, MCV 96.2, MCH 32.1, MCHC 33.3, RDW 13.3, Plt Count 203, MPV 10.0, Gran % 90.0 H, Lymph % (Auto) 4.6 L, Wheeler % (Auto) 5.2, Eos % (Auto) 0.1 L, Baso % (Auto) 0.1, Gran # 13.26 H, Lymph # (Auto) 0.7 L, Wheeler # (Auto) 0.8 H, Eos # (Auto) 0.0, Baso # (Auto) 0.01, Neutrophils % (Manual) 88 H, Band Neutrophils % 1, Lymphocytes % (Manual) 7 L, Monocytes % (Manual) 4, Platelet Evaluation Normal 08/09/18 08:25: Procalcitonin < 0.05 L, Lyme Disease IgG Ab (IFA) Negative, Lyme Disease IgM Ab Negative 08/09/18 08:24: Lyme Disease Screen <0.90 08/09/18 08:24: Fructosamine 251 08/09/18 06:20: RPR Nonreactive 08/09/18 06:20: Fasting Glucose 93, Triglycerides 97, Cholesterol 154, LDL Cholesterol Direct 79, HDL Cholesterol 56 08/09/18 06:00: Free T4 1.46, Thyroxine (T4) 10.4, TSH 3rd Generation 0.29 L 08/09/18 06:00: 25-OH Vitamin D Total 28.3 L 08/09/18 06:00: Hemoglobin A1c 5.5 08/08/18 13:10: Alcohol, Quantitative < 10 08/08/18 13:10: Salicylates < 1 L, Acetaminophen < 10.0 L 08/08/18 13:10: Urine Opiates Screen Negative, Urine Methadone Screen Negative, Ur Barbiturates Screen Negative, Ur Phencyclidine Scrn Negative, Ur Amphetamines Screen Negative, U Benzodiazepines Scrn Positive H, U Oth Cocaine Metabols Negative, U Cannabinoids Screen Negative 08/08/18 13:10: Sodium 140, Potassium 4.8, Chloride 99, Carbon Dioxide 32, Anion Gap 14, BUN 15, Creatinine 0.7, Est GFR ( Amer) > 60, Est GFR (Non-Af Amer) > 60, Random Glucose 122 H, Calcium 10.3, Magnesium 2.1, Total Bilirubin 1.2, AST 35, ALT 44, Alkaline Phosphatase 69, Total Creatine Kinase 64, Total Protein 8.3, Albumin 4.8, Globulin 3.6, Albumin/Globulin Ratio 1.3 08/08/18 13:10: Urine Color Yellow, Urine Appearance Sl cloudy, Urine pH 5.5, Ur Specific [place] >= 1.030, Urine Protein Trace H, Urine Glucose (UA) Negative, Urine Ketones Negative, Urine Blood Large H, Urine Nitrate Negative, Urine Bilir ubin Negative, Urine Urobilinogen 0.2, Ur Leukocyte Esterase Moderate H, Urine RBC 0 - 2, Urine WBC 25 - 30, Ur Epithelial Cells 4 - 5, Urine Bacteria Small 08/08/18 13:10: WBC 9.0, RBC 4.52, Hgb 14.2 D, Hct 44.3, MCV 98.0, MCH 31.4, MCHC 32.1, RDW 13.5, Plt Count 245, MPV 10.5, Gran % 63.4, Lymph % (Auto) 25.1, Wheeler % (Auto) 10.4 H, Eos % (Auto) 0.9 L, Baso % (Auto) 0.2, Gran # 5.73, Lymph # (Auto) 2.3, Wheeler # (Auto) 0.9 H, Eos # (Auto) 0.1, Baso # (Auto) 0.02 Vital Signs Temp Pulse Pulse Pulse Resp BP Pulse Ox 08/17/18 09:49 115/64 08/17/18 07:07 99.8 F H 80 20 115/64 08/16/18 16:00 92 H 140/73 08/16/18 08:21 114/54 L 08/16/18 07:00 98.5 F 77 20 114/54 L 08/15/18 16:00 77 126/67 08/15/18 09:44 126/70 08/15/18 07:14 98.4 F 80 20 126/70 08/14/18 15:00 97.7 F 87 17 157/72 H 08/14/18 09:09 130/69 08/14/18 07:09 97.8 F 81 18 130/69 08/13/18 17:28 73 115/61 08/13/18 08:13 130/78 08/13/18 07:00 97.8 F 68 18 130/78 08/12/18 09:25 134/63 08/12/18 07:33 98.0 F 83 20 134/63 08/11/18 09:24 110/60 08/11/18 07:46 98.3 F 74 20 110/60 08/10/18 16:00 74 105/57 L 08/10/18 08:45 134/74 08/10/18 07:32 98.9 F 85 20 134/74 08/09/18 16:40 99.3 F 08/09/18 16:18 85 136/65 08/09/18 10:53 99.9 F H 08/09/18 09:14 99.7 F H 08/09/18 08:31 144/61 08/09/18 08:28 99.9 F H 08/09/18 07:15 99.9 F H 90 20 144/61 08/08/18 23:15 69 69 18 08/08/18 18:25 98.0 F 78 18 122/78 98 08/08/18 14:31 98.0 F 74 16 141/72 98 Consultations:: List each consultation separately and include: 1. Reason for re quest. 2. Findings. 3. Follow-up Consultations: Dr. Khan consultation appreciated See note for more detailed information 08/14/2018 patient was consulted by Dr. Randal Booth, impression that patient might benefit from a thyroid scan to see if either nodules are hypoactive, a fine needle aspiration could be done as outpatient, in case patient is against further treatment a follow-up ultrasound in 6-12 months is recommended. Please see medical team note for more detailed information Summary of Hospital Course include:: 1. Description of specific treatment plan utilized for patients during their course of treatmen. 2. Summarize the time-co urse for resolution of acute symptoms and/or regressed behaviors. 3. Describe issues identified and worked on during hospitalization. 4. Describe medication utilized. 5. Describe medical problems identified and treated. 6. Reassessment of suicide risk Summary of Hospital Course: Patient is a 62 year old female with a history of depression and anxiety (likely MANDY and Panic Disorder), one prior psychiatric admissions to this facility for anxiety and depression this year, in psychiatric treatment with Dr. Dumont and reportedly compliant with medications, who presented to our ER with her spouse yesterday 08/08/18 for a psychiatric evaluation and admission as per recommendation. in ED pt presented to be depressed, mildly paranoid, guarded. pt is very familiar to this facility due to psych admission in 11/2017, pt presented with acceptable personal hygiene, poor ADLs. pt is very poor and unreliable historian, no information could be obtained from the pt, pt presented with psychomotor retardation, pt was was given only yes or no answers. Mini-cog was scored 0. medical and neurology team involved. Please see admission note for more detailed information 08/09/18 08:27 08/08/18 13:10 Lab Results 08/09/18 08:47: Total T3 1.35 08/09/18 08:47: Free T3 pg/mL 3.53 08/09/18 08:27: WBC 14.7 H D, RBC 4.52, Hgb 14.5, Hct 43.5, MCV 96.2, MCH 32.1, MCHC 33.3, RDW 13.3, Plt Count 203, MPV 10.0, Gran % 90.0 H, Lymph % (Auto) 4.6 L, Wheeler % (Auto) 5.2, Eos % (Auto) 0.1 L, Baso % (Auto) 0.1, Gran # 13.26 H, Lymph # (Auto) 0.7 L, Wheeler # (Auto) 0.8 H, Eos # (Auto) 0.0, Baso # (Auto) 0.01, Neutrophils % (Manual) 88 H, Band Neutrophils % 1, Lymphocytes % (Manual) 7 L, Monocytes % (Manual) 4, Platelet Evaluation Normal 08/09/18 08:25: Procalcitonin < 0.05 L, Lyme Disease IgG Ab (IFA) Pending, Lyme Disease IgM Ab Pending 08/09/18 06:20: Fasting Glucose 93, Triglycerides 97, Cholesterol 154, LDL Cholesterol Direct 79, HDL Cholesterol 56 08/09/18 06:00: Free T4 1.46, Thyroxine (T4) 10.4, TSH 3rd Generation 0.29 L 08/09/18 06:00: 25-OH Vitamin D Total 28.3 L 08/09/18 06:00: Hemoglobin A1c 5.5 08/08/18 13:10: Alcohol, Quantitative < 10 08/08/18 13:10: Salicylates < 1 L, Acetaminophen < 10.0 L 08/08/18 13:10: Urine Opiates Screen Negative, Urine Methadone Screen Negative, Ur Barbiturates Screen Negative, Ur Phencyclidine Scrn Negative, Ur Amphetamines Screen Negative, U Benzodiazepines Scrn Positive H, U Oth Cocaine Metabols Negative, U Cannabinoids Screen Negative 08/08/18 13:10: Sodium 140, Potassium 4.8, Chloride 99, Carbon Dioxide 32, Anion Gap 14, BUN 15, Creatinine 0.7, Est GFR ( Amer) > 60, Est GFR (Non-Af Amer) > 60, Random Glucose 122 H, Calcium 10.3, Magnesium 2.1, Total Bilirubin 1.2, AST 35, ALT 44, Alkaline Phosphatase 69, Total Creatine Kinase 64, Total Protein 8.3, Albumin 4.8, Globulin 3.6, Albumin/Globulin Ratio 1.3 08/08/18 13:10: Urine Color Yellow, Urine Appearance Sl cloudy, Urine pH 5.5, Ur Specific [place] >= 1.030, Urine Protein Trace H, Urine Glucose (UA) Negative, Urine Ketones Negative, Urine Blood Large H, Urine Nitrate Negative, Urine Bilirubin Negative, Urine Urobilinogen 0.2, Ur Leukocyte Esterase Moderate H, Urine RBC 0 - 2, Urine WBC 25 - 30, Ur Epithelial Cells 4 - 5, Urine Bacteria Sm all 08/08/18 13:10: WBC 9.0, RBC 4.52, Hgb 14.2 D, Hct 44.3, MCV 98.0, MCH 31.4, MCHC 32.1, RDW 13.5, Plt Count 245, MPV 10.5, Gran % 63.4, Lymph % (Auto) 25.1, Wheeler % (Auto) 10.4 H, Eos % (Auto) 0.9 L, Baso % (Auto) 0.2, Gran # 5.73, Lymph # (Auto) 2.3, Wheeler # (Auto) 0.9 H, Eos # (Auto) 0.1, Baso # (Auto) 0.02 Vital Signs Temp Pulse Pulse Pulse Resp BP Pulse Ox 08/09/18 10:53 99.9 F H 08/09/18 09:14 99.7 F H 08/09/18 08:31 144/61 08/09/18 08:28 99.9 F H 08/09/18 07:15 99.9 F H 90 20 144/61 08/08/18 23:15 69 69 18 08/08/18 18:25 98.0 F 78 18 122/78 98 08/08/18 14:31 98.0 F 74 16 141/72 98 Over the course of this hospitalization patient was stabilized on the following medications: risperdal 0.5mg po am 1mg po hs for confusion lexapro 20mg po daily xanax 0.5mg po qid for anxiety Patient tolerated medications well, no side effects observed or reported, aims 0, no EPS. Patient improved significantly, patient became more alert cognitive function improved. Patient was seen by multiple specialist please see medical as well as surgical team for more detailed information. 08/17/[address] today, discharge constant details, information about , as well as possible fine-needle aspiration by surgical team for thyroid nodules explained in details to the patient as well as her . Please see manager social responsibility notes for more detailed information. Patient was advised to obtain medical records and presented to primary care physician, patient and her verbalized understanding. Dr. Lunsford, an outpatient psychiatrist was contacted, was notified about patient discharged. Over the course of this hospitalization pt was attending groups, pt also had medication management, had therapeutic milieu. Overall pt improved significantly, pt's affect became brighter, pt was less depressed, has realistic future oriented plans, pt also does not appear to be psychotic, but mildly anxious about new thyroid nodules which were found this admission, pt was socially appropriate, no behavioral issues, pts insight improved as well and soon pt deemed to be ready for discharge. At the time of the discharge pt denied been depressed, denied thoughts of harming self or others, denied psychotic symptoms, and pt does not appeared to be psychotic, denied been anxious, pt is not in imminent danger to self or others, pt was referred back to , information about follow up appointment, time and address provided to the pt, it is patient responsibility to follow up with outpatient clinic, PMD as well as specialists (see SW note for more detailed information). In case pt will need to obtain results of studies pending at discharge pt was provided with contact information of Psychiatric Inpatient unit [phone] as well as Medical Record Department [phone]. Using drugs, patient does not smoke, patient does not drink alcohol pt was provided with prescriptions for all of medications (please see medication reconciliation form) Pt was educated about safety plan in case of worsening of symptoms or in case of suicidal or homicidal ideation call 911 or go to the nearest ER, also was educated to take meds as prescribed and stay away from drugs, pt verbalized understanding. - Diagnosis (1) Generalized anxiety disorder Status: Chronic Priority: High (2) Major depression Status: Chronic Priority: High (3) OCD (obsessive compulsive disorder) Status: Chronic Priority: High - Final Diagnosis (DSM 5) Condition upon Discharge: GOOD Disposition: HOME/ ROUTINE Follow-up Treatment Plan: Overall pt improved significantly, pt's affect became brighter, pt was less depressed, has realistic future oriented plans, pt also does not appear to be psychotic, but mildly anxious about new thyroid nodules which were found this admission, pt was socially appropriate, no behavioral issues, pts insight improved as well and soon pt deemed to be ready for discharge. At the time of the discharge pt denied been depressed, denied thoughts of harming self or others, denied psychotic symptoms, and pt does not appeared to be psychotic, denied been anxious, pt is not in imminent danger to self or others, pt was referred back to , information about follow up appointment, time and address provided to the pt, it is patient responsibility to follow up with outpatient clinic, PMD as well as specialists (see SW note for more detailed information). In case pt will need to obtain results of studies pending at discharge pt was provided with contact information of Psychiatric Inpatient unit [phone] as well as Medical Record Department [phone]. Using drugs, patient does not smoke, patient does not drink alcohol pt was provided with prescriptions for all of medications (please see medication reconciliation form) Pt was educated about safety plan in case of worsening of symptoms or in case of suicidal or homicidal ideation call 911 or go to the nearest ER, also was educated to take meds as prescribed and stay away from drugs, pt verbalized understanding. Discharge took more than 45 minutes of this feature writer time Prescriptions/Medication Reconciliation: amLODIPine [Norvasc] 2.5 mg PO DAILY #7 tab Aspirin [Ecotrin] 81 mg PO DAILY #7 tabec Atorvastatin [Lipitor] 40 mg PO DIN #7 tab Docusate [Colace] 100 mg PO TID #45 cap Ergocalciferol [Drisdol 50,000 Intl Units Cap] 1 cap PO Q7D #7 cap Escitalopram [Lexapro] 20 mg PO DAILY #14 tab [id number] Ethyl Esters 1 GM [Lovaza] 1 gm PO BID #14 sgl Pantoprazole [Protonix EC Tab] 40 mg PO 0600,1600 #14 ect risperiDONE [RisperDAL Tab] 0.5 mg PO DAILY #14 tab risperiDONE [RisperDAL Tab] 1 mg PO HS #14 tab - Smoking Cessation Smoking Cessation Medication prescribed: No Reason for not providing: Patient does not smoke - Antipsychotic Medications Pt discharged on 2 or more routine antipsychotic medications: No
== END 2018-08-17 13:45 | disposition home or self-care (01) | DRG 880 ==
LOC: ED 12:16 → ERH 16:46 → PSYC 18:37
PROVIDERS: ADMIT Psychiatry & Neurology Psychiatry; ATTEND Psychiatry & Neurology Psychiatry
DX: F41.1 Generalized anxiety disorder (principal); F32.9 Major depressive disorder, single episode, unspecified; F42.9 Obsessive-compulsive disorder, unspecified; F41.0 Panic disorder [episodic paroxysmal anxiety]; I10 Essential (primary) hypertension; G93.89 Other specified disorders of brain; K21.9 Gastro-esophageal reflux disease without esophagitis; M06.9 Rheumatoid arthritis, unspecified; R31.29 Other microscopic hematuria; E55.9 Vitamin D deficiency, unspecified; E04.2 Nontoxic multinodular goiter; E78.1 Pure hyperglyceridemia; E87.6 Hypokalemia; I70.0 Atherosclerosis of aorta; E78.5 Hyperlipidemia, unspecified; Z87.891 Personal history of nicotine dependence

== ENCOUNTER 2018-09-13 10:59 | Day surgery (SDC) | payer MEDICARE, BC ==
[2018-09-13 11:49] LABS: BASO # 0.03 K/mm3 (0.0-2.0); BASO % 0.4 % (0.0-3.0); EOS # 0.1 (0.0-0.7); EOS % 2.1 % (1.5-5.0); GRAN # 3.57 (1.4-6.5); GRAN % 52.5 % (50.0-68.0); HEMOGLOBIN 12.9 g/dL (12.0-16.0); LYMPH # 2.3 (1.2-3.4); LYMPH % 33.7 % (22.0-35.0); MEAN CELL VOLUME 98.3 fl (80.0-105.0); MEAN CORPUSCULAR HEMOGLOBIN 31.2 pg (25.0-35.0); MEAN CORPUSCULAR HGB CONC 31.8 g/dl (31.0-37.0); MONO # 0.8 (0.1-0.6); MONO % 11.3 % (1.0-6.0); RBC 4.13 10^6/uL (3.5-6.1); RED CELL DISTRIBUTION WIDTH 13.2 % (11.5-14.5); WHITE BLOOD COUNT 6.8 10^3/uL (4.5-11.0)
[2018-09-13 11:56] LABS: BLOOD UREA NITROGEN 13 mg/dL (7-21); CALCIUM 9.3 mg/dL (8.4-10.5); GFR NON-AFRICAN AMERICAN > 60; INR 0.98; PARTIAL THROMBOPLASTIN TIME 29.7 Seconds (25.1-36.5); PROTHROMBIN TIME 11.3 SECONDS (9.4-12.5)
[2018-09-13] MEDS ORDERED: Lidocaine 1% Inj (20ml) ONE (13:42)
[2018-09-13] MEDS ORDERED: Midazolam 2 MG/2 ML VIAL ONE (13:42)
[2018-09-13] MEDS ORDERED: Oxycodone/Acetaminophen 5/325 mg Tab PO PRN (14:08)
[2018-09-13] MEDS ORDERED: Sodium Chloride 0.45% 1,000 ML IV SCH (14:15)
--- NOTE | 2018-09-13 14:32 | US ---
PROCEDURE: Ultrasound-guided left thyroid fine needle aspiration biopsy. CLINICAL HISTORY: 5 cm dominant left side thyroid nodule. Evaluate for malignancy. PHYSICIAN(S): Randal Booth M.D. TECHNIQUE: The relative risks and indications for the procedure were explained to the patient and her and consent obtained. The patient was placed supine on the stretcher with the neck extended and preliminary sonography of the thyroid performed. This reveal a dominant 5 cm heterogeneous nodule in the mid to lower left thyroid. The neck was prepped and draped in the usual sterile fashion. Conscious sedation and monitoring were provided throughout the procedure by a nurse. 1% Xylocaine was used to anesthetize the skin and soft tissues at the access site. Three passes with a 22-gauge needle were performed under ultrasound guidance for fine needle aspiration of the 5 cm heterogeneous nodule in the left thyroid. The slides were reviewed by pathology and deemed adequate. The patient tolerated the procedure well. IMPRESSION: 1. Ultrasound guided fine needle aspiration of a 5 cm heterogeneous dominant nodule in the left thyroid
[2018-09-13 14:45] VITALS: O2SAT 98
[2018-09-13 15:05] VITALS: RESP 20; TEMP 97.8
[2018-09-13 15:12] VITALS: BP 154/80; PULSE 80
== END 2018-09-13 15:30 | disposition home or self-care (01) ==
LOC: SDS 10:59
PROVIDERS: ATTEND Radiology Vascular & Interventional Radiology
DX: E04.1 Nontoxic single thyroid nodule (principal); I10 Essential (primary) hypertension
CPT/HCPCS: 10022; 36415; 76942; 80048; 85025; 85610; 85730; 88173; 88305; 99152; 99153; J2250; J2405; J3010; J7030

== ENCOUNTER 2018-12-26 10:08 | Outpatient (CLI) | payer MEDICARE, BC | END 2018-12-26 10:09 | disposition home or self-care (01) | LOC: RAD 10:08 ==

== ENCOUNTER 2019-01-12 10:49 | Outpatient (CLI) | payer MEDICARE, BC | END 2019-01-12 10:50 | disposition home or self-care (01) | LOC: RAD 10:49 ==